=== PATIENT | male | born 1935 | race Caucasian/White ===

== ENCOUNTER 2019-03-19 23:03 | Inpatient (IN) ==
--- NOTE | 2019-03-19 23:22 | DR.CP ---
HPI Time Seen Time Seen by Provider: 03/19/19 23:21 PCP Primary Care Physician: Carlos/Jair Complaint Chief Complaint:: An 83 y/o male with c/o hurting in his chest. The pain started last night. He has also pain in the Left chest, separately from the central chest. It hurts to take in deep breaths or move around. There is no nausea or vomiting. Reviewed Nurses Notes Review: Yes Source History Provided: Patient and Family Member Timing Onset of Chief Complaint: 03/18/19 Came on: Gradually Pain: Present Now Location Location of Chest Pain: Left and Chest Chest Pain Radiation Location: Left Arm Context Onset: At rest Cardiac Risk Factors: Hyperlipidemia and Diabetes PE Risk Factors: None Prehospital Care: None Quality Quality: Sharp and Pleuritic Severity Severity: Severe Modifying Factors Worsens: Breathing and Movement Impoves: Rest Associated Signs and Symptoms Associated Signs and Symptoms: Shortness of Breath PMH PMH Past Surgical History: Yes Family History Family Medical History: Diabetes Mellitus, Cancer, [place], Coronary Artery Disease, Sudden Cardiac and Hypertension Social History Do you use any recreational Drugs:: No ROS Review of Systems Constitutional: No Symptoms Reported Eyes: No Symptoms Reported ENTM: No Symptoms Reported Respiratoy: Short of Breath Cardiovascular: Chest Pain Gastrointestinal/Abdominal: No Symptoms Reported Genitourinary: No Symptoms Reported Neurological: No Symptoms Reported Musculoskeletal: No Symptoms Reported Integumentary: No Symptoms Reported Hematologic/Lymphatic: No Symptoms Reported Endocrine: No Symptoms Reported Psychiatric: No Symptoms Reported PE Vitals Vitals: Temperature 98.2 F Pulse Rate [Left Brachial] 67 Pulse Rate 69 Respiratory Rate 16 Blood Pressure [Left Arm] 146/69 Blood Pressure [Right Arm] 134/64 Blood Pressure 151/66 O2 Sat by Pulse Oximetry 93 General Limitations: No Limitations General Appearance: Alert and In No Apparent Distress Head Head Exam: Normal Inspection, Atraumatic and Normocephalic Eyes Eye exam: Normal Appearance and EOMI ENT ENT Exam: Normal Oropharynx and Mucous Membranes Moist Chest Chest Inspection: Normal Inspection and Symmetric Chest Wall Rise Respiratory Respiratory Exam: Chest Wall Tenderness (Lt. lower ribs laterally) Respiratory Exam: Left: Rhonchi, Left: Crackles and Left: Decreased Breath Sounds and Lower: Rhonchi, Lower: Crackles and Lower: Decreased Breath Sounds Cardiovascular Cardiovascular Exam: Regular Rate, Normal Rhythm, +S1 and +S2 Abdominal Exam Abdominal Exam: Normal Inspection, Normal Bowel Sounds and Soft Extremities Extremities Exam: Normal Inspection Back Back Exam: Normal Inspection Neurologic Neurological Exam: Alert and Oriented X3 Psychiatric Psychiatric Exam: Normal Affect and Normal Mood Skin Skin Exam: Warm, Dry and Normal Color COURSE Education/Counseling Education/Counseling: Patient, Family, Education and Counseling Educated On: Treatment, Diagnosis, Prognosis and Needs for Follow Up ROR Labs Reviewed Laboratory Results Reviewed?: Yes Result Diagrams: 03/19/19 23:20 03/19/19 23:20 Laboratory: WBC 7.8 X10^3/uL (3.6-10.0) 03/19/19 23:20 RBC 4.94 X10^6/uL (4.7-6.0) 03/19/19 23:20 Hgb 14.8 g/dL (13.5-18.0) 03/19/19 23:20 Hct 42.6 % (42.0-54.0) 03/19/19 23:20 MCV 86.3 fL (80.0-100.0) 03/19/19 23:20 MCH 30.0 pg (27.0-34.0) 03/19/19 23:20 MCHC 34.8 g/dL (33.0-35.0) 03/19/19 23:20 RDW 13.1 % (11.6-16.5) 03/19/19 23:20 Plt Count 156 X10^3/uL (150.0-450.0) 03/19/19 23:20 MPV 8.7 fL (7.4-11.0) 03/19/19 23:20 Neut % (Auto) 47.2 % (42.0-75.0) 03/19/19 23:20 Lymph % (Auto) 38.4 % (21.0-51.0) 03/19/19 23:20 [place] % (Auto) 11.9 % (0.0-13.0) 03/19/19 23:20 Eos % (Auto) 1.9 % (0.9-2.9) 03/19/19 23:20 Baso % (Auto) 0.6 % (0.2-1.0) 03/19/19 23:20 Neut # (Auto) 3.7 x10^3/uL (2.2-4.8) 03/19/19 23:20 Lymph # (Auto) 3.0 X10^3/uL (1.3-2.9) H 03/19/19 23:20 Mason # (Auto) 0.9 x10^3/uL (0.3-0.8) H 03/19/19 23:20 Eos # (Auto) 0.2 x10^3/uL (0.0-0.2) 03/19/19 23:20 Baso # (Auto) 0.1 X10^3/uL (0.0-0.1) 03/19/19 23:20 Absolute Nucleated RBC 0.1 /100WBC 03/19/19 23:20 INR Target Range - 03/19/19 23:20 INR 1.00 (0.8-1.3) 03/19/19 23:20 APTT 32.6 SECONDS (22.9-36.5) 03/19/19 23:20 PTT Comment - 03/19/19 23:20 Sodium 138 mmol/L (136-145) 03/19/19 23:20 Corrected Sodium 139 mmol/L (136-145) 03/19/19 23:20 Potassium 4.1 mmol/L (3.5-5.1) 03/19/19 23:20 Chloride 103 mmol/L (98-107) 03/19/19 23:20 Carbon Dioxide 24.4 mmol/L (21-32) 03/19/19 23:20 BUN 13 mg/dL (7-18) 03/19/19 23:20 Creatinine 1.55 mg/dL (0.70-1.30) H 03/19/19 23:20 Est GFR (MDRD) Af Amer 56 (>60) L 03/19/19 23:20 Est GFR (MDRD) Non-Af 46 (>60) L 03/19/19 23:20 Glucose 125 mg/dL (65-99) H 03/19/19 23:20 Calcium 9.5 mg/dL (8.5-10.1) 03/19/19 23:20 Corrected Calcium TNP 03/19/19 23:20 Magnesium 1.9 mg/dL (1.7-2.9) 03/19/19 23:20 Total Bilirubin 0.30 mg/dL (0.2-1.0) 03/19/19 23:20 AST 13 Units/L (15-37) L 03/19/19 23:20 ALT 30 Units/L (12-78) 03/19/19 23:20 Alkaline Phosphatase 92 Units/L (46-116) 03/19/19 23:20 Creatine Kinase 105 Units/L (39-308) 03/19/19 23:20 CK-MB (CK-2) 2.6 ng/mL (0-4.0) 03/19/19 23:20 CK/CKMB % Calc 2.5 % (<4) 03/19/19 23:20 Troponin I 0.00 ng/mL (0-1.5) 03/19/19 23:20 Total Protein 7.3 g/dL (6.4-8.2) 03/19/19 23:20 Albumin 3.7 g/dL (3.4-5.0) 03/19/19 23:20 Globulin 3.6 g/dL (2.5-4.5) 03/19/19 23:20 Albumin/Globulin Ratio 1.0 Ratio (1.1-2.1) L 03/19/19 23:20 XRAY XRAY Interpreted by: Self XRAY Findings: CXR/Lt. ribs: No infifltrates or rib fx. noted. EKG Rate: 71 [place]: Normal Rhythm: NSR Block: None Hypertrophy: None ST: Normal Diagnosis Discharge Problem: Chest pain Qualifiers: Chest pain type: precordial pain Qualified Code(s): R07.2 - Precordial pain
[2019-03-19 23:33] LABS: BASOPHILS # (AUTO) 0.1 X10^3/uL (0.0-0.1); BASOPHILS % (AUTO) 0.6 % (0.2-1.0); EOSINOPHILS # (AUTO) 0.2 x10^3/uL (0.0-0.2); EOSINOPHILS % (AUTO) 1.9 % (0.9-2.9); HEMATOCRIT 42.6 % (42.0-54.0); HEMOGLOBIN 14.8 g/dL (13.5-18.0); LYMPHOCYTES % (AUTO) 38.4 % (21.0-51.0); MEAN CORPUSCULAR HGB CONC 34.8 g/dL (33.0-35.0); MEAN CORPUSCULAR VOLUME 86.3 fL (80.0-100.0); MEAN PLATELET VOLUME 8.7 fL (7.4-11.0); MONOCYTES # (AUTO) 0.9 x10^3/uL (0.3-0.8); MONOCYTES % (AUTO) 11.9 % (0.0-13.0); NEUTROPHILS # (AUTO) 3.7 x10^3/uL (2.2-4.8); NEUTROPHILS % (AUTO) 47.2 % (42.0-75.0); PLATELET COUNT 156 X10^3/uL (150.0-450.0); RED BLOOD COUNT 4.94 X10^6/uL (4.7-6.0); RED CELL DISTRIBUTION WIDTH 13.1 % (11.6-16.5); WHITE BLOOD COUNT 7.8 X10^3/uL (3.6-10.0)
[2019-03-19 23:44] LABS: ALANINE AMINOTRANSFERASE 30 Units/L (12-78); ALBUMIN 3.7 g/dL (3.4-5.0); ALKALINE PHOSPHATASE 92 Units/L (46-116); ASPARTATE AMINO TRANSFERASE 13 Units/L (15-37); BLOOD UREA NITROGEN 13 mg/dL (7-18); CALCIUM 9.5 mg/dL (8.5-10.1); CARBON DIOXIDE 24.4 mmol/L (21-32); CHLORIDE 103 mmol/L (98-107); COR NA(FOR HYPERGLY) 139 mmol/L (136-145); CREATININE 1.55 mg/dL (0.70-1.30); MAGNESIUM 1.9 mg/dL (1.7-2.9); SODIUM 138 mmol/L (136-145); TOTAL PROTEIN 7.3 g/dL (6.4-8.2); eGFR NON BLACK RACES 46 (>60)
[2019-03-19 23:51] LABS: CKMB % 2.5 % (<4); CREATINE KINASE 105 Units/L (39-308); CREATINE KINASE MB 2.6 ng/mL (0-4.0)
[2019-03-20] MEDS ORDERED: NORCO 5/325 MG TAB ONE ×2 (02:09→05:52)
[2019-03-20] MEDS ORDERED: NORCO 5/325 MG TAB PO ONE ×2 (02:11→16:30)
[2019-03-20] MEDS ORDERED: REFLEX: PROVENTIL NEB & PulmiCORT NEB~ NEB SCH (02:15)
[2019-03-20 02:45] LABS: CKMB % 2.3 % (<4); CREATINE KINASE MB 2.4 ng/mL (0-4.0)
--- NOTE | 2019-03-20 04:46 | RAD ---
Left rib series-five views with frontal chest Indication: Pain. Findings: There is no pneumothorax or effusion. There is patchy left lower lung opacity concerning for pneumonia. Right upper lobe lung nodule possible. No displaced rib fracture seen. Chronic lung changes are noted. Heart size is prominent. Impression: 1. Left lower lung pneumonia suspected. 2. No displaced rib fracture seen. 3. Questionable right upper lobe lung nodule. PA and lateral chest follow-up recommended. Underlying neoplasm should be excluded. Reported By:
[2019-03-20 05:12] VITALS: BMI 25.1
[2019-03-20] MEDS ORDERED: SALINE 3% 15 ML NEB TX NEB ONE (05:45)
[2019-03-20] MEDS: PROVENTIL NEB TX 0.083% 2.5MG/ 3ML NEB SCH ×3 (05:45→17:03)
[2019-03-20] MEDS: NORCO 5/325 MG TAB PO PRN ×2 (05:49→14:12)
[2019-03-20 06:34] LABS: ALANINE AMINOTRANSFERASE 34 Units/L (12-78); ALBUMIN 3.3 g/dL (3.4-5.0); ALKALINE PHOSPHATASE 79 Units/L (46-116); ASPARTATE AMINO TRANSFERASE 23 Units/L (15-37); BLOOD UREA NITROGEN 12 mg/dL (7-18); CALCIUM 9.1 mg/dL (8.5-10.1); CARBON DIOXIDE 24.6 mmol/L (21-32); CHLORIDE 104 mmol/L (98-107); COR CA(FOR HYPOALB) 9.7 mg/dL (8.5-10.1); CREATININE 1.38 mg/dL (0.70-1.30); SODIUM 137 mmol/L (136-145); TOTAL PROTEIN 6.7 g/dL (6.4-8.2); eGFR NON BLACK RACES 53 (>60)
[2019-03-20 07:53] LABS: BASOPHILS % (AUTO) 0.3 % (0.2-1.0); EOSINOPHILS # (AUTO) 0.1 x10^3/uL (0.0-0.2); EOSINOPHILS % (AUTO) 0.5 % (0.9-2.9); HEMATOCRIT 42.4 % (42.0-54.0); HEMOGLOBIN 14.5 g/dL (13.5-18.0); LYMPHOCYTES # (AUTO) 2.5 X10^3/uL (1.3-2.9); LYMPHOCYTES % (AUTO) 21.6 % (21.0-51.0); MEAN CORPUSCULAR HEMOGLOBIN 29.6 pg (27.0-34.0); MEAN CORPUSCULAR HGB CONC 34.2 g/dL (33.0-35.0); MEAN CORPUSCULAR VOLUME 86.6 fL (80.0-100.0); MEAN PLATELET VOLUME 8.5 fL (7.4-11.0); MONOCYTES # (AUTO) 1.1 x10^3/uL (0.3-0.8); MONOCYTES % (AUTO) 9.9 % (0.0-13.0); NEUTROPHILS # (AUTO) 7.7 x10^3/uL (2.2-4.8); NEUTROPHILS % (AUTO) 67.7 % (42.0-75.0); PLATELET COUNT 158 X10^3/uL (150.0-450.0); RED BLOOD COUNT 4.89 X10^6/uL (4.7-6.0); RED CELL DISTRIBUTION WIDTH 13.1 % (11.6-16.5); WHITE BLOOD COUNT 11.4 X10^3/uL (3.6-10.0)
[2019-03-20] MEDS ORDERED: NS 1000 ML 1,000 ML IV ONE (08:14)
[2019-03-20 08:52] LABS: CREATINE KINASE 93 Units/L (39-308)
[2019-03-20] MEDS ORDERED: LEXAPRO ONE (08:55)
[2019-03-20] MEDS: PULMICORT NEB TX 0.5 MG NEB SCH ×2 (08:57→21:00)
[2019-03-20] MEDS ORDERED: PATIENT'S HOME MEDICATION (Escitalopram Oxalate [Escitalopram Oxalate] 5 MG) PO SCH (09:00)
[2019-03-20 09:08] LABS: CKMB % 2.3 % (<4); CREATINE KINASE MB 2.1 ng/mL (0-4.0); TROPONIN I < 0.02 ng/mL (0-1.5)
--- NOTE | 2019-03-20 09:08 | CT ---
HISTORY: Further evaluation of lung mass Study: CT chest without contrast Comparison: Radiograph 03/20/2019, 12/28/2016 Technique: Multiple axial images of the chest were obtained from the thoracic inlet to the upper abdomen without IV contrast. Dose reduction techniques including Automated Exposure Control (AEC) and adjustment of mA and kV were utilized. Findings: Please note evaluation is limited without IV contrast. Heart size is normal with calcified plaque throughout the coronary arteries. Aorta is normal in caliber. Multiple calcified lymph nodes are present mediastinum suggesting sequela of chronic granulomatous disease. There is left lower lobe consolidation that may represent pneumonia. In the right upper lobe there is a partially calcified 4.5 cm density with streaky borders that may represent fibrotic changes or scarring. Neoplasm is felt less likely but PET scan could be performed to evaluate for metabolic uptake once the pneumonia has cleared. No aggressive osseous lesion or fracture. The visualized portions of the upper abdomen are grossly unremarkable. IMPRESSION: 1. Left lower lobe consolidation suggesting pneumonia. 2. Partially calcified 4.5 cm density in the right upper lobe with streaky borders suggesting fibrotic changes or scarring. Neoplasm is felt less likely but PET scan could be performed to evaluate for metabolic uptake after the pneumonia has cleared. 3. Coronary atherosclerotic disease and chronic granulomatous changes. Reported By:
[2019-03-20] MEDS ORDERED: TIOTROPIUM BROMIDE MONOHYDRATE INH SCH (09:15)
[2019-03-20] MEDS: SYNTHROID 88 mcg TAB PO SCH (09:39)
[2019-03-20] MEDS: LEXAPRO PO SCH (09:40)
[2019-03-20] MEDS: ARICEPT TAB 10 MG PO SCH (09:42)
[2019-03-20] MEDS ORDERED: MORPHINE SULFATE INJ 2 MG INJ IVP PRN (10:36)
[2019-03-20] MEDS ORDERED: MORPHINE SULFATE INJ 2 MG INJ ONE (10:41)
[2019-03-20] MEDS: NS 1000 ML 1,000 ML IV SCH (10:43)
[2019-03-20] MEDS: FORTAZ or TAZICEF VIAL INJ IVP SCH ×3 (10:44→21:31)
[2019-03-20] MEDS: LEVAQUIN PREMIX IV 500 MG 500 MG/100 ML BAG IV SCH (10:44)
[2019-03-20] MEDS: MUCOMYST 20% 200 MG/ML PO SCH ×2 (10:46→20:43)
[2019-03-20 11:54] LABS: BILIRUBIN,URINE NEGATIVE (NEGATIVE); BLOOD/HEMOGLOBIN,URINE NEGATIVE (NEGATIVE); GLUCOSE, URINE NEGATIVE (NEGATIVE); KETONES,URINE NEGATIVE (NEGATIVE); LEUKOCYTE ESTERASE ,URINE NEGATIVE (NEGATIVE); NITRITES,URINE NEGATIVE (NEGATIVE); PROTEIN,URINE NEGATIVE (NEGATIVE); UROBILINOGEN,URINE NORMAL (NORMAL)
[2019-03-20 12:14] LABS: APPEARANCE,URINE CLEAR (CLEAR); COLOR,URINE YELLOW (YELLOW)
[2019-03-20] MEDS ORDERED: MORPHINE SULFATE INJ 2 MG INJ IVP ONE (12:15)
[2019-03-20] MEDS: ASPIRIN 81 MG CHEWTAB PO SCH (12:24)
[2019-03-20 13:20] LABS: CKMB % 2.2 % (<4); CREATINE KINASE 88 Units/L (39-308); CREATINE KINASE MB 1.9 ng/mL (0-4.0); TROPONIN I < 0.02 ng/mL (0-1.5)
[2019-03-20 14:46] LABS: CREATINE KINASE 82 Units/L (39-308)
[2019-03-20 15:00] LABS: CKMB % 2.2 % (<4); CREATINE KINASE MB 1.8 ng/mL (0-4.0)
[2019-03-20 15:01] LABS: TROPONIN I < 0.02 ng/mL (0-1.5)
[2019-03-20] MEDS ORDERED: NORCO 10/325 TAB PO PRN (16:02)
[2019-03-20] MEDS ORDERED: TORADOL 30 MG VIAL ONE (16:08)
[2019-03-20] MEDS: TORADOL 30 MG VIAL IVP PRN ×2 (16:17→21:20)
[2019-03-20] MEDS: MEMANTINE PO SCH (19:15)
[2019-03-20] MEDS: ZOCOR TAB 20 MG PO SCH (20:43)
[2019-03-20] MEDS: NIACIN 500 MG PO SCH (20:50)
--- NOTE | 2019-03-20 23:43 | DR.H&P ---
H&P - History & Physical for Day of: H&P Date: 03/20/19 - Chief Complaint Chief Complaint: SOB, CHEST PAIN - History of Present Illness History of Present Illness: IS A 83 YEAR OLD PATIENT OF OURS WHO PRESENTED TO THE ER WITH COMPLAINTS OF LEFT SIDED CHEST PAIN X 1 DAY. HE REPORTS THAT PAIN IS WORSE UPON TAKING A DEEP BREATH. ON ARRIVAL, VITALS WERE 98.3-72-25-93%RA-158/72. LABS WERE OBTAINED. ABNORMAL LAB VALUES INCLUDE THE FOLLOWING: CREATININE 1.55, GLUCOSE 125, AST 13. CARDIAC ENZYMES WITHIN NORMAL LIMITS. URINALYSIS IS UNREMARKABLE. URINE, SUPUTUM, AND BLOOD CULTURES OBTAINED. AN EKG WAS OBTAINED AND REVEALED: SINUS RHYTHM WITH HR 71. RIB SERIES WITH CHEST XRAY REVEALED: Left lower lung pneumonia suspected. No displaced rib fracture seen. Questionable right upper lobe lung nodule. PA and lateral chest follow-up recommended. Underlying neoplasm should be excluded. WE OBTAINED A CHEST CT WITHOUT CONTRAST. IT REVEALED: Left lower lobe consolidation suggesting pneumonia. Partially calcified 4.5 cm density in the right upper lobe with streaky borders suggesting fibrotic changes or scarring. Neoplasm is felt less likely but PET scan could be performed to evaluate for metabolic uptake after the pneumonia has cleared. Coronary atherosclerotic disease and chronic granulomatous changes. HE WAS ADMITTED FOR FURTHER EVALUATION AND TREATMENT OF CHESET PAIN AND PNEUMONIA. HE WAS STARTED ON IV FORTAZ, IV LEVAQUIN, RESPIRATORY TREATMENTS, AND SUPPLEMENTAL OXYGEN. HOME MEDICATIONS WERE RESUMED. OTHERWISE, WE PLAN TO FOLLOW UP WITH AM LABS AND CHEST XRAY AND CONTINUE TO MONITOR. - Past Medical History Past Medical History: COPD - Past Surgical History Surgical History: Ortho Surgery, Other - Family History Family Medical History: Diabetes Mellitus, Cancer, [place], Sudden Cardiac , Hypertension - Social History Does patient currently use any type of tobacco product: No Have you used tobacco products in the last 12 months: No Type of Tobacco Use: None Alcohol Use: None Drug Use: None - Medications Home Medications: No Known Drug Allergies Allergy (Verified 03/19/19 23:21) CONTINUE taking the following medications donepezil 10 mg PO DAILY 03/19/19 [History] escitalopram oxalate 5 mg PO DAILY 03/19/19 [History] levothyroxine 88 mcg PO QAM 03/19/19 [History] - Review of Systems Constitutional: No Symptoms Reported Eyes: No Symptoms Reported ENT: No Symptoms Reported Respiratory: Shortness of Breath, SOB with Excertion Cardiovascular: Chest Pain Gastrointestinal: No Symptoms Reported Genitourinary: No Symptoms Reported Musculoskeletal: No Symptoms Reported Skin: No Symptoms Reported Neurological: No Symptoms Reported - Physical Exam Vital Signs: Temperature 97.7 F Pulse Rate [Right Brachial] 75 Pulse Rate [Left Brachial] 69 Pulse Rate 77 Respiratory Rate 20 Blood Pressure [Left Arm] 146/69 Blood Pressure [Right Arm] 110/55 Blood Pressure 157/71 O2 Sat by Pulse Oximetry 97 Oriented: Normal Eyes: Normal Ear: Normal Nose: Normal Throat: Normal Respiratory: Diminished Throughout Cardiovascular: Normal : Normal Auscultation: Bowel Sounds: Normal Palpation: Normal Tenderness: Normal Skin: Normal Musculoskeletal: Normal Psychiatric: Normal Mood Description: Calm Affect: Normal Speech Pattern: Clear - Assessment/Plan (1) Pneumonia Qualifiers: Pneumonia type: due to unspecified organism Laterality: left Lung location: lower lobe of lung Qualified Code(s): J18.1 - Lobar pneumonia, unspecified organism Status: Acute Plan: IV FORTAZ, IV LEVAQUIN, RESPIRATORY TX, SUPPLEMENTAL OXYGEN, CONTINUE TO MONITOR (2) Chest pain, rule out acute myocardial infarction Status: Acute - Allergies Allergies/Adverse Reactions: Allergies Allergy/AdvReac Type Severity Reaction Status Date / Time No Known Drug Allergies Allergy Verified 03/19/19 23:21
[2019-03-21] MEDS: PROVENTIL NEB TX 0.083% 2.5MG/ 3ML NEB SCH ×5 (01:03→21:17)
[2019-03-21] MEDS: PULMICORT NEB TX 0.5 MG NEB SCH ×3 (01:03→21:17)
[2019-03-21] MEDS: FORTAZ or TAZICEF VIAL INJ IVP SCH ×3 (05:37→21:05)
[2019-03-21] MEDS: NS 1000 ML 1,000 ML IV SCH (05:37)
[2019-03-21 06:18] LABS: BASOPHILS % (AUTO) 0.4 % (0.2-1.0); EOSINOPHILS # (AUTO) 0.1 x10^3/uL (0.0-0.2); EOSINOPHILS % (AUTO) 1.1 % (0.9-2.9); HEMATOCRIT 36.2 % (42.0-54.0); HEMOGLOBIN 12.6 g/dL (13.5-18.0); LYMPHOCYTES % (AUTO) 23.2 % (21.0-51.0); MEAN CORPUSCULAR HEMOGLOBIN 30.1 pg (27.0-34.0); MEAN CORPUSCULAR HGB CONC 34.8 g/dL (33.0-35.0); MEAN CORPUSCULAR VOLUME 86.3 fL (80.0-100.0); MEAN PLATELET VOLUME 8.3 fL (7.4-11.0); MONOCYTES # (AUTO) 1.2 x10^3/uL (0.3-0.8); NEUTROPHILS # (AUTO) 5.2 x10^3/uL (2.2-4.8); NEUTROPHILS % (AUTO) 61.3 % (42.0-75.0); PLATELET COUNT 129 X10^3/uL (150.0-450.0); RED CELL DISTRIBUTION WIDTH 13.3 % (11.6-16.5); WHITE BLOOD COUNT 8.5 X10^3/uL (3.6-10.0)
[2019-03-21 06:57] LABS: ALANINE AMINOTRANSFERASE 25 Units/L (12-78); ALBUMIN 2.7 g/dL (3.4-5.0); ALKALINE PHOSPHATASE 74 Units/L (46-116); ASPARTATE AMINO TRANSFERASE 16 Units/L (15-37); BLOOD UREA NITROGEN 13 mg/dL (7-18); CALCIUM 8.4 mg/dL (8.5-10.1); CARBON DIOXIDE 24.2 mmol/L (21-32); CHLORIDE 106 mmol/L (98-107); COR CA(FOR HYPOALB) 9.4 mg/dL (8.5-10.1); CREATININE 1.54 mg/dL (0.70-1.30); SODIUM 139 mmol/L (136-145); eGFR NON BLACK RACES 46 (>60)
--- NOTE | 2019-03-21 07:24 | RAD ---
HISTORY: Shortness of breath Study: Chest AP portable Comparison: 03/20/2019 plain film and chest CT Findings: The heart is within normal limits in size. The jonathan are normal. The lungs are free of acute alveolar infiltrates. Abnormal parenchymal density remains in the right upper lobe as previously described on recent chest CT. Continued follow-up is recommended. PET-CT could be obtained if clinically indicated. The remainder the right lung and left upper lung landers are clear. Retrocardiac left lower lobe infiltrate is identified. Small left pleural effusion is present. IMPRESSION: Left lower lobe infiltrate and small left pleural effusion Irregular density in the right upper lobe as previously described on chest CT, unchanged Reported By:
[2019-03-21] MEDS ORDERED: LEXAPRO ONE (07:56)
[2019-03-21] MEDS: ASPIRIN 81 MG CHEWTAB PO SCH (08:22)
[2019-03-21] MEDS: LEXAPRO PO SCH (08:22)
[2019-03-21] MEDS: SYNTHROID 88 mcg TAB PO SCH (08:22)
[2019-03-21] MEDS: LEVAQUIN PREMIX IV 500 MG 500 MG/100 ML BAG IV SCH (08:22)
[2019-03-21] MEDS: ARICEPT TAB 10 MG PO SCH (08:23)
[2019-03-21] MEDS ORDERED: FLOMAX PO SCH (09:00)
[2019-03-21] MEDS ORDERED: PHARMACY CONSULT - DOSE _____ XX SCH (10:00)
[2019-03-21] MEDS: MEMANTINE PO SCH (13:45)
[2019-03-21] MEDS: TORADOL 30 MG VIAL IVP PRN (15:12)
[2019-03-21] MEDS: ZOCOR TAB 20 MG PO SCH (20:26)
[2019-03-21] MEDS: NIACIN 500 MG PO SCH (20:26)
[2019-03-22] MEDS: TORADOL 30 MG VIAL IVP PRN (03:59)
[2019-03-22] MEDS: NS 1000 ML 1,000 ML IV SCH (05:28)
[2019-03-22] MEDS: FORTAZ or TAZICEF VIAL INJ IVP SCH ×2 (05:32→20:10)
[2019-03-22 05:45] LABS: BASOPHILS % (AUTO) 0.3 % (0.2-1.0); EOSINOPHILS # (AUTO) 0.1 x10^3/uL (0.0-0.2); HEMATOCRIT 35.9 % (42.0-54.0); HEMOGLOBIN 12.5 g/dL (13.5-18.0); LYMPHOCYTES # (AUTO) 1.7 X10^3/uL (1.3-2.9); LYMPHOCYTES % (AUTO) 18.9 % (21.0-51.0); MEAN CORPUSCULAR HEMOGLOBIN 30.2 pg (27.0-34.0); MEAN CORPUSCULAR HGB CONC 34.8 g/dL (33.0-35.0); MEAN CORPUSCULAR VOLUME 86.8 fL (80.0-100.0); MEAN PLATELET VOLUME 8.7 fL (7.4-11.0); MONOCYTES # (AUTO) 1.3 x10^3/uL (0.3-0.8); MONOCYTES % (AUTO) 15.1 % (0.0-13.0); NEUTROPHILS # (AUTO) 5.7 x10^3/uL (2.2-4.8); NEUTROPHILS % (AUTO) 64.7 % (42.0-75.0); PLATELET COUNT 135 X10^3/uL (150.0-450.0); RED BLOOD COUNT 4.14 X10^6/uL (4.7-6.0); RED CELL DISTRIBUTION WIDTH 13.3 % (11.6-16.5); WHITE BLOOD COUNT 8.9 X10^3/uL (3.6-10.0)
[2019-03-22 06:17] LABS: ALANINE AMINOTRANSFERASE 22 Units/L (12-78); ALBUMIN 2.5 g/dL (3.4-5.0); ALKALINE PHOSPHATASE 74 Units/L (46-116); ASPARTATE AMINO TRANSFERASE 17 Units/L (15-37); BLOOD UREA NITROGEN 15 mg/dL (7-18); CALCIUM 8.4 mg/dL (8.5-10.1); CARBON DIOXIDE 22.7 mmol/L (21-32); CHLORIDE 107 mmol/L (98-107); COR CA(FOR HYPOALB) 9.6 mg/dL (8.5-10.1); CREATININE 1.59 mg/dL (0.70-1.30); SODIUM 137 mmol/L (136-145); TOTAL PROTEIN 5.9 g/dL (6.4-8.2); eGFR NON BLACK RACES 45 (>60)
--- NOTE | 2019-03-22 06:50 | RAD ---
HISTORY: Shortness of breath Study: Chest AP portable Comparison: 03/21/2019 Findings: The heart is within normal limits in size. The jonathan are normal. The lungs are well inflated. No significant change is noted in the irregular density being followed in the right upper lobe. Left lower lobe infiltrate is unchanged. The remainder of the lung landers are clear. The bony thorax is unremarkable. IMPRESSION: No significant change from the prior examination Reported By:
[2019-03-22] MEDS ORDERED: LEXAPRO ONE (07:53)
[2019-03-22] MEDS: PROVENTIL NEB TX 0.083% 2.5MG/ 3ML NEB SCH ×4 (08:08→20:15)
[2019-03-22] MEDS: PULMICORT NEB TX 0.5 MG NEB SCH ×2 (08:08→20:15)
[2019-03-22] MEDS: LEXAPRO PO SCH (08:38)
[2019-03-22] MEDS: SYNTHROID 88 mcg TAB PO SCH (08:38)
[2019-03-22] MEDS: LEVAQUIN PREMIX IV 500 MG 500 MG/100 ML BAG IV SCH (08:38)
[2019-03-22] MEDS: ASPIRIN 81 MG CHEWTAB PO SCH (08:39)
[2019-03-22] MEDS: ARICEPT TAB 10 MG PO SCH (08:39)
[2019-03-22] MEDS: MEMANTINE PO SCH (10:54)
[2019-03-22] MEDS ORDERED: TORADOL 30 MG VIAL IVP PRN (11:00)
[2019-03-22] MEDS: LOVENOX INJ 40 MG SYR SC SCH (11:18)
[2019-03-22] MEDS: ZOCOR TAB 20 MG PO SCH (20:10)
[2019-03-22] MEDS ORDERED: FLOMAX PO SCH (21:00)
[2019-03-23] MEDS: NS 1000 ML 1,000 ML IV SCH ×2 (01:36→09:55)
[2019-03-23 05:52] LABS: BASOPHILS % (AUTO) 0.3 % (0.2-1.0); EOSINOPHILS # (AUTO) 0.1 x10^3/uL (0.0-0.2); HEMATOCRIT 38.2 % (42.0-54.0); HEMOGLOBIN 13.2 g/dL (13.5-18.0); LYMPHOCYTES # (AUTO) 2.1 X10^3/uL (1.3-2.9); LYMPHOCYTES % (AUTO) 24.3 % (21.0-51.0); MEAN CORPUSCULAR HGB CONC 34.6 g/dL (33.0-35.0); MEAN CORPUSCULAR VOLUME 86.8 fL (80.0-100.0); MEAN PLATELET VOLUME 8.9 fL (7.4-11.0); MONOCYTES # (AUTO) 1.5 x10^3/uL (0.3-0.8); MONOCYTES % (AUTO) 16.6 % (0.0-13.0); NEUTROPHILS % (AUTO) 57.8 % (42.0-75.0); PLATELET COUNT 152 X10^3/uL (150.0-450.0); RED BLOOD COUNT 4.41 X10^6/uL (4.7-6.0); RED CELL DISTRIBUTION WIDTH 13.1 % (11.6-16.5); WHITE BLOOD COUNT 8.7 X10^3/uL (3.6-10.0)
--- NOTE | 2019-03-23 06:15 | RAD ---
HISTORY: Shortness of breath Study: Chest AP portable Comparison: 03/22/2019 Findings: The heart remains within normal limits in size. The jonathan are normal. Irregular abnormal parenchymal density again identified in the right lung apex stable when compared with the prior examination. Left lower lobe infiltrate is unchanged. There has been interval development of a left pleural effusion. The right middle, right lower, and left upper lobes are clear. IMPRESSION: No change left lower lobe infiltrate but there has been interval development of a left pleural effusion Irregular density again identified in the right upper lobe as described on the recent chest CT., stable Reported By:
[2019-03-23 06:19] LABS: ALANINE AMINOTRANSFERASE 25 Units/L (12-78); ALBUMIN 2.7 g/dL (3.4-5.0); ALKALINE PHOSPHATASE 75 Units/L (46-116); ASPARTATE AMINO TRANSFERASE 20 Units/L (15-37); BLOOD UREA NITROGEN 12 mg/dL (7-18); CALCIUM 9.2 mg/dL (8.5-10.1); CARBON DIOXIDE 23.8 mmol/L (21-32); CHLORIDE 106 mmol/L (98-107); COR CA(FOR HYPOALB) 10.2 mg/dL (8.5-10.1); CREATININE 1.38 mg/dL (0.70-1.30); SODIUM 137 mmol/L (136-145); TOTAL PROTEIN 6.4 g/dL (6.4-8.2); eGFR NON BLACK RACES 53 (>60)
--- NOTE | 2019-03-23 08:20 | PCM.PROG ---
Progress Note - Progress Note for Day of Date of Exam: 03/21/19 - Subjective Subjective: WAS ADMITTED FOR LEFT LOWER LUNG PNEUMONIA AND CHEST PAIN, RULE OUT ACUTE SD. TODAY, HE IS ALERT AND ORIENTED, LYING IN BED ON MORNING ROUNDS. HE CONTINUES WITH COMPLAINTS OF SHORTNESS OF BREATH AND PAIN TO THE LEFT SIDE. HE ALSO REPORTS COUGHING TODAY. ON EXAMINATION, HEART IS REGULAR IN RATE AND RHYTHM. BILATERAL LUNGS ARE NOTED WITH DIMINISHED LUNG SOUNDS THROUGHOUT. ABDOMEN IS ROUND, SOFT, AND NON-TENDER WITH NORMAL BOWEL SOUNDS NOTED IN ALL QUADRANTS. HIS VITALS THIS MORNING ARE 97.9-78-18-97%-148/66. LABS WERE OBTAINED. ABNORMAL LAB VALUES INCLUDE THE FOLLOWING: RBC 4.20, HGB 12.6, HCT 36.2, PLT OCUNT 129, CREATININE 1.54, CALCIUM 8.4, TOTAL PROTEIN 6.0, ALBUMIN 2.7. BLOOD, SPUTUM, AND URINE CULTURE PENDING. A CHEST XRAY WAS OBTAINED TODAY AND REVEALED: Left lower lobe infiltrate and small left pleural effusion. Irregular density in the right upper lobe as previously described on chest CT, unchanged. HE IS CURRENTLY RECEIVING IV LEVAQUIN AND IV FORTAZ WELL R ESPIRATORY TREATMENTS AND SUPPLEMENTAL OXYGEN. HE WAS STARTED ON TORADOL 30MG IV Q6H PRN FOR PAIN RELATED TO PLEURISY. WE WILL CONTINUE WITH CURRENT PLAN OF CARE TODAY. OTHERWISE, WE PLAN TO FOLLOW UP WITH AM LABS AND CONTINUE TO MONITOR. - Past Medical Family Social History Past Med/Fam/Surg Hx: No changes since H&P Allergies: Allergies No Known Drug Allergies Allergy (Verified 03/19/19 23:21) - Review of Systems ROS: No change since H&P - Vital Signs and I&O's Vital Signs: Temperature 99.3 F Pulse Rate [Right Brachial] 73 Pulse Rate [Left Brachial] 75 Pulse Rate 75 Respiratory Rate 18 Blood Pressure [Left Arm] 115/59 Blood Pressure [Right Arm] 134/72 Blood Pressure 157/71 O2 Sat by Pulse Oximetry 96 Intake and Output: Intake & Output 03/20/19 03/21/19 03/22/19 03/23/19 11:59 11:59 11:59 11:59 Intake Total 0 / 0 1030 / 1030 1645 / 1645 2010 Balance 0 / 0 1030 / 1030 1645 / 1645 2010 - Physical Exam Oriented: Normal Eyes: Normal Ear: Normal Nose: Normal Throat: Normal Respiratory: Generalized, Diminished Cardiovascular: Normal : Normal Auscultation: Bowel Sounds: Normal Palpation: Normal Tenderness: Normal Skin: Normal Musculoskeletal: Normal Psychiatric: Normal Mood Description: Calm Affect: Normal Speech Pattern: Clear, Appropriate - Laboratory and Diagnostics Result Diagrams: 03/23/19 05:12 03/23/19 05:12 Labs: 03/20/19 07:36 Blood Blood Culture - Preliminary 03/20/19 07:31 Blood Blood Culture - Preliminary 03/20/19 11:45 Urine,Clean Catch Urine Culture - Final 03/20/19 07:40 Sputum - Expectorated Sputum Sputum Culture - Final 03/20/19 07:40 Sputum - Expectorated Sputum - Final Laboratory WBC 8.7 X10^3/uL (3.6-10.0) 03/23/19 05:12 RBC 4.41 X10^6/uL (4.7-6.0) L 03/23/19 05:12 Hgb 13.2 g/dL (13.5-18.0) L 03/23/19 05:12 Hct 38.2 % (42.0-54.0) L 03/23/19 05:12 MCV 86.8 fL (80.0-100.0) 03/23/19 05:12 MCH 30.0 pg (27.0-34.0) 03/23/19 05:12 MCHC 34.6 g/dL (33.0-35.0) 03/23/19 05:12 RDW 13.1 % (11.6-16.5) 03/23/19 05:12 Plt Count 152 X10^3/uL (150.0-450.0) 03/23/19 05:12 MPV 8.9 fL (7.4-11.0) 03/23/19 05:12 Neut % (Auto) 57.8 % (42.0-75.0) 03/23/19 05:12 Lymph % (Auto) 24.3 % (21.0-51.0) 03/23/19 05:12 [place] % (Auto) 16.6 % (0.0-13.0) H 03/23/19 05:12 Eos % (Auto) 1.0 % (0.9-2.9) 03/23/19 05:12 Baso % (Auto) 0.3 % (0.2-1.0) 03/23/19 05:12 Neut # (Auto) 5.0 x10^3/uL (2.2-4.8) H 03/23/19 05:12 Lymph # (Auto) 2.1 X10^3/uL (1.3-2.9) 03/23/19 05:12 [place] # (Auto) 1.5 x10^3/uL (0.3-0.8) H 03/23/19 05:12 Eos # (Auto) 0.1 x10^3/uL (0.0-0.2) 03/23/19 05:12 Baso # (Auto) 0.0 X10^3/uL (0.0-0.1) 03/23/19 05:12 Absolute Nucleated RBC 0.0 /100WBC 03/23/19 05:12 INR Target Range - 03/19/19 23:20 INR 1.00 (0.8-1.3) 03/19/19 23:20 APTT 32.6 SECONDS (22.9-36.5) 03/19/19 23:20 PTT Comment - 03/19/19 23:20 Sodium 137 mmol/L (136-145) 03/23/19 05:12 Corrected Sodium TNP 03/23/19 05:12 Potassium 4.5 mmol/L (3.5-5.1) 03/23/19 05:12 Chloride 106 mmol/L (98-107) 03/23/19 05:12 Carbon Dioxide 23.8 mmol/L (21-32) 03/23/19 05:12 BUN 12 mg/dL (7-18) 03/23/19 05:12 Creatinine 1.38 mg/dL (0.70-1.30) H 03/23/19 05:12 Est GFR (MDRD) Af Amer > 60 (>60) 03/23/19 05:12 Est GFR (MDRD) Non-Af 53 (>60) L 03/23/19 05:12 Glucose 94 mg/dL (65-99) 03/23/19 05:12 Calcium 9.2 mg/dL (8.5-10.1) 03/23/19 05:12 Corrected Calcium 10.2 mg/dL (8.5-10.1) H 03/23/19 05:12 Magnesium 1.9 mg/dL (1.7-2.9) 03/19/19 23:20 Total Bilirubin 0.70 mg/dL (0.2-1.0) 03/23/19 05:12 AST 20 Units/L (15-37) 03/23/19 05:12 ALT 25 Units/L (12-78) 03/23/19 05:12 Alkaline Phosphatase 75 Units/L (46-116) 03/23/19 05:12 Creatine Kinase 82 Units/L (39-308) 03/20/19 14:17 CK-MB (CK-2) 1.8 ng/mL (0-4.0) 03/20/19 14:17 CK/CKMB % Calc 2.2 % (<4) 03/20/19 14:17 Troponin I < 0.02 ng/mL (0-1.5) 03/20/19 14:17 Total Protein 6.4 g/dL (6.4-8.2) 03/23/19 05:12 Albumin 2.7 g/dL (3.4-5.0) L 03/23/19 05:12 Globulin 3.7 g/dL (2.5-4.5) 03/23/19 05:12 Albumin/Globulin Ratio 0.7 Ratio (1.1-2.1) L 03/23/19 05:12 Specimen Type Clean catch urine 03/20/19 11:45 Urine Color Yellow (YELLOW) 03/20/19 11:45 Urine Appearance Clear (CLEAR) 03/20/19 11:45 Urine pH 5.0 (5.0 - 8.0) 03/20/19 11:45 Ur Specific [place] 1.010 (1.000-1.030) 03/20/19 11:45 Urine Protein Negative (NEGATIVE) 03/20/19 11:45 Urine Glucose (UA) Negative (NEGATIVE) 03/20/19 11:45 Urine Ketones Negative (NEGATIVE) 03/20/19 11:45 Urine Occult Blood Negative (NEGATIVE) 03/20/19 11:45 Urine Nitrite Negative (NEGATIVE) 03/20/19 11:45 Urine Bilirubin Negative (NEGATIVE) 03/20/19 11:45 Urine Urobilinogen Normal (NORMAL) 03/20/19 11:45 Ur Leukocyte Esterase Negative (NEGATIVE) 03/20/19 11:45 - Plan (1) Pneumonia Status: Acute Qualifiers: Pneumonia type: due to unspecified organism Laterality: left Lung location: lower lobe of lung Qualified Code(s): J18.1 - Lobar pneumonia, unspecified organism Plan: IV FORTAZ, IV LEVAQUIN, RESPIRATORY [place], SUPPLEMENTAL OXYGEN, CONTINUE TO MONITOR (2) Chest pain, rule out acute myocardial infarction Status: Acute (3) Pleurisy Status: Acute Plan: TORADOL 30MG IV Q6H PRN, CONTINUE TO MONTIOR
[2019-03-23] MEDS: PULMICORT NEB TX 0.5 MG NEB SCH (09:06)
[2019-03-23] MEDS: PROVENTIL NEB TX 0.083% 2.5MG/ 3ML NEB SCH ×3 (09:06→12:13)
[2019-03-23] MEDS ORDERED: LEXAPRO ONE (09:14)
[2019-03-23] MEDS: LOVENOX INJ 40 MG SYR SC SCH (09:30)
[2019-03-23] MEDS: LEVAQUIN PREMIX IV 500 MG 500 MG/100 ML BAG IV SCH (09:53)
[2019-03-23] MEDS: ASPIRIN 81 MG CHEWTAB PO SCH (09:54)
[2019-03-23] MEDS: LEXAPRO PO SCH (09:54)
[2019-03-23] MEDS: SYNTHROID 88 mcg TAB PO SCH (09:54)
[2019-03-23] MEDS: FORTAZ or TAZICEF VIAL INJ IVP SCH (09:55)
[2019-03-23] MEDS: ARICEPT TAB 10 MG PO SCH (09:55)
[2019-03-23 16:42] VITALS: BP 131/68
== END 2019-03-23 17:35 | disposition home or self-care (01) | DRG 195 ==
LOC: MED/SURG 23:03 → ER 23:03 → MED/SURG 03-20 02:15
PROVIDERS: ADMIT Internal Medicine; ATTEND Internal Medicine
DX: R07.89 Other chest pain; J44.9 Chronic obstructive pulmonary disease, unspecified; R09.1 Pleurisy; J18.8 Other pneumonia, unspecified organism; R07.2 Precordial pain; E03.8 Other specified hypothyroidism
CPT/HCPCS: 36415; 71010; 71045; 71111; 71250; 80053; 81003; 82550; 82553; 83735; 84484; 85025; 85610; 85730; 87040; 87070; 87086; 87205; 93005; 94640; 94760; 96365; 99284; A4222; G0378; J0713; J1650; J1885; J1956; J2270; J7030; J7608; J7613; J7626

== ENCOUNTER 2019-12-17 18:56 | Inpatient (IN) ==
[2019-12-17] MEDS ORDERED: SOLU-Medrol 125 MG VIAL IVP ONE (19:18)
[2019-12-17] MEDS ORDERED: DUONEB 0.5 MG/3 MG (3 mL) NEB ONE ×4 (19:18→23:44)
--- NOTE | 2019-12-17 19:22 | DR.SOBA ---
HPI Time Seen Time Seen by Provider: 12/17/19 19:06 Complaints Chief Complaint Doctors Comments: Patient is complaining of cold, cough, SOB and wheezing for the past 2-3 days getting progressively worst today. States he has been taking nebulizer treatments four times daily and has constant home oxygen but it has not helped. States he usual start like this and it turns into pneumonia is why he came to the emergency room. He denies chest pain but has tightness in his chest at times. He has a cough with whitish sputum production. He denies tobacco or alcohol usage. States he is a patient of Dr. Adam and he has COPD. Reviewed Nurses Notes Reviewed: Yes Source History Provided: Patient and Family Member Mode of Arrival Mode of Arrival: Ambulatory Duration Duration: Days Context Onset:: At Rest and With Light Exertion PE Risk Factors:: None History of:: COPD Currently on:: Inhaled Bronchodilators Prehospital Care:: O2 and Inhaled B2 Modifying Factors Worsens:: Exertion Improves:: Inhaler Associated Signs and Symptoms Associated Signs and Symptoms: Wheeze, Cough, Nasal Congestion and Chest Pain If Chest Pain Quality: Other (tightness in chest) If Cough Cough: Productive and White PMH PMH Past Medical History: COPD Past Surgical History: Yes Surgical History: Ortho Surgery and Other Family History Family Medical History: Diabetes Mellitus, Cancer, [place], Sudden Cardiac and Hypertension Social History Do you use any recreational Drugs:: No infectious screening Isolation: Standard ROS Review of Systems Constitutional: No Symptoms Reported Eyes: No Symptoms Reported; negative See HPI, Eye Pain, Blurred Vision, Tearing, Discharge, Photophobia, Diplopia and Other ENTM: No Symptoms Reported, Nose Discharge and Nose Congestion Respiratoy: No Symptoms Reported, Productive Cough, Short of Breath and Wheezing Cardiovascular: No Symptoms Reported and Chest Pain; negative See HPI, Edema, Palpitations, Syncope, Cyanosis, Skin Mottling and Other Gastrointestinal/Abdominal: No Symptoms Reported; negative See HPI, Abdominal Pain, Constipation, Diarrhea, Nausea, Vomiting, Food Intolerance and Other Genitourinary: No Symptoms Reported Neurological: No Symptoms Reported Musculoskeletal: No Symptoms Reported Integumentary: No Symptoms Reported Hematologic/Lymphatic: No Symptoms Reported; negative See HPI, Anemia, Blood Clots, Easy Bleeding, Easy Bruising, Swollen Glands, Lymphadenopathy and Other Endocrine: No Symptoms Reported Psychiatric: No Symptoms Reported; negative See HPI, Anxiety, Depression, Hallucinations, Excessive crying, Suicidal and Other PE Vital Signs Vitals: Temperature 98.4 F Pulse Rate [Left] 85 Pulse Rate 91 Respiratory Rate 24 Blood Pressure [Left Arm] 131/68 Blood Pressure 136/60 O2 Sat by Pulse Oximetry 100 General Limitations: No Limitations General Appearance: Alert and In Distress (slight distress with wheezing) Head Head Exam: Normal Inspection, Atraumatic and Normocephalic Eyes Eye exam: Normal Appearance, PERRL and EOMI; negative Scleral Icterus, Conjunctival Injection, Nystagmus, Miosis, Mydrasis, Periorbital Swelling, Periorbital Tenderness and Other ENT ENT Exam: Normal Exam, Normal Oropharynx, Normal External Ear Exam, Mucous Memb ranes Moist, TM's Normal Bilaterally and Other (dentures) Neck Neck Exam: Normal Inspection, Full ROM and Trachea Midline; negative Tenderness, Meningismus, Lymphadenopathy, Thyromegaly and Other Chest Chest Inspection: Normal Inspection and Symmetric Chest Wall Rise Respiratory Respiratory Exam: Prolonged Expiratory Phase and Respiratory Distress; negative Normal Lung Sounds Bilat, Accessory Muscle Use, Chest Wall Tenderness, Stridor and Other Respiratory Exam: Bilateral: Wheezing and Bilateral: Decreased Breath Sounds Cardiovascular Cardiovascular Exam: Regular Rate, Normal Rhythm, Normal Heart Sounds and Systolic Murmur Abdominal Exam Abdominal Exam: Normal Inspection, Normal Bowel Sounds and Soft; negative Distention, Tenderness, Guarding, Rebound, Rigidity, Dimnished Bowel Sounds, Hyperactive Bowel Sounds, Hypoactive Bowel Sounds, Organomegaly, Trauma, Incision, Ascites, Mass, Bruit, Pulsatile Mass, Hernia and Other Abdominal Tenderness: negative RUQ, RLQ, LUQ, LLQ, Epigastrium, Suprapubic, Diffuse, Mild, Moderate, Severe and Other Extremities Extremities Exam: Normal Inspection, Full ROM and Normal Capillary Refill; negative Tenderness, Edema, Joint Swelling, Calf Tenderness and Other Back Back Exam: Normal Inspection and Full ROM; negative Tenderness, (R) CVA Tenderness, (L) CVA Tenderness, Muscle Spasm, Paraspinal Tenderness, Vertebral Tenderness, Rashes, (R) Sciatic Notch Tenderness, (L) Sciatic Notch Tendern, (R) Straight Leg Raise, (L) Straight Leg Raise and Other Neurologic Neurological Exam: Alert, Oriented X3, CN II-XII Intact, Normal Gait (gait not tested), Motor Sensory Deficit and Reflexes Normal Psychiatric Psychiatric Exam: Normal Affect and Normal Mood; negative Depressed, Agitated, Anxious, Flat Affect, Manic, Homicidal Ideation, Suicidal Ideation and Other Skin Skin Exam: Warm, Dry, Intact and Normal Color; negative Rash, Cyanosis, Diaphoresis, Erythema, Pallor, Mottled and Other COURSE Consultation Called: 22:35 Consultation Comments: Unable to contact Dr. Adam. supervisor tubing, Naya Styles states to admit; will continue to try to contact Dr. Adam. Education/Counseling Education/Counseling: Patient and Family Educated On: Treatment, Diagnosis and Needs for Follow Up ROR Labs Reviewed Laboratory Results Reviewed?: Yes (All labs and x-ray results reviewed and discusse with patient) Result Diagrams: 12/17/19 19:12/17/19 Laboratory: WBC 8.9 X10^3/uL (3.6-10.0) 12/17/19: RBC 5.20 X10^6/uL (4.7-6.0) 12/17/19: Hgb 15.2 g/dL (13.5-18.0) 12/17/19: Hct 44.1 % (42.0-54.0) 12/17/19: MCV 84.7 fL (80.0-100.0) 12/17/19: MCH 29.2 pg (27.0-34.0) 12/17/19: MCHC 34.4 g/dL (33.0-35.0) 12/17/19 RDW 13.2 % (11.6-16.5) 12/17/19 Plt Count 159 X10^3/uL (150.0-450.0) 12/17/19 MPV 8.6 fL (7.4-11.0) 12/17/19 Neut % (Auto) 69.2 % (42.0-75.0) 12/17/19 Lymph % (Auto) 16.4 % (21.0-51.0) L 12/17/19: [place] % (Auto) 10.3 % (0.0-13.0) 12/17/19: Eos % (Auto) 3.3 % (0.9-2.9) H 12/17/19 19: Baso % (Auto) 0.8 % (0.2-1.0) 12/17/19: Neut # (Auto) 6.1 x10^3/uL (2.2-4.8) H 12/17/19: Lymph # (Auto) 1.5 X10^3/uL (1.3-2.9) 12/17/19: [place] # (Auto) 0.9 x10^3/uL (0.3-0.8) H 12/17/19: Eos # (Auto) 0.3 x10^3/uL (0.0-0.2) H 12/17/19: Baso # (Auto) 0.1 X10^3/uL (0.0-0.1) 12/17/19: Absolute Nucleated RBC 0.0 /100WBC 12/17/19: PT 14.6 SECONDS (11.8-14.3) 12/17/19: INR Target Range - 12/17/19: INR 1.18 (0.8-1.3) 12/17/19: APTT 35.3 SECONDS (22.9-36.5) 12/17/19: PTT Comment - 12/17/19: D-Dimer 1830 ng/mL (0-400) H* 12/17/19: Sodium 137 mmol/L (136-145) 12/17/19: Corrected Sodium TNP 12/17/19: Potassium 4.2 mmol/L (3.5-5.1) 12/17/19: Chloride 101 mmol/L (98-107) 12/17/19: Carbon Dioxide 26.9 mmol/L (21-32) 12/17/19: BUN 15 mg/dL (7-18) 12/17/19 19: Creatinine 2.00 mg/dL (0.70-1.30) H 12/17/19 19: Est GFR (MDRD) Af Amer 41 (>60) L 12/17/19: Est GFR (MDRD) Non-Af 34 (>60) L 12/17/19 19:28 Glucose 96 mg/dL (65-99) 12/17/19 19:28 Calcium 9.5 mg/dL (8.5-10.1) 12/17/19 19: Corrected Calcium TNP 12/17/19 19: Magnesium 1.8 mg/dL (1.7-2.9) 12/17/19 19:28 Total Bilirubin 0.50 mg/dL (0.2-1.0) 12/17/19 19:28 AST 73 Units/L (15-37) H 12/17/19 19:28 ALT 64 Units/L (12-78) 12/17/19 19:28 Alkaline Phosphatase 100 Units/L (46-116) 12/17/19 19: Creatine Kinase 1907 Units/L (39-308) H 12/17/19 19: CK-MB (CK-2) 7.9 ng/mL (0-4.0) H* 12/17/19 19: CK/CKMB % Calc 0.4 % (<4) 12/17/19 19: Troponin I < 0.02 ng/mL (0-1.5) 12/17/19 19: B-Natriuretic Peptide 47.4 pg/mL (0-79) 12/17/19 19: Total Protein 7.9 g/dL (6.4-8.2) 12/17/19 19: Albumin 3.9 g/dL (3.4-5.0) 12/17/19: Globulin 4.0 g/dL (2.5-4.5) 12/17/19 19: Albumin/Globulin Ratio 1.0 Ratio (1.1-2.1) L 12/17/19 19:28 Influenza Type A (PCR) Negative (NEGATIVE) 12/17/19 19:38 Influenza Type B (PCR) Negative (NEGATIVE) 12/17/19 19:38 Opioid Opioid Risk Tool Total: 0 Total Score Risk Category: Low Risk Copyright: Rich CARLOS predicting aberrant behaviors
[2019-12-17] MEDS ORDERED: SOLU-Medrol 125 MG VIAL ONE (19:29)
--- NOTE | 2019-12-17 19:43 | RAD ---
HISTORYsobSTUDMAURICIO FRIAS/LAT ADULTCOMPARISONMay 2018 2, CT from March 20, 2019 and January 2017.TECHNIQUETwo views of the chestFINDINGSPatchy semi organized subsegmental right upper lobe opacity is again demonstrated. Parenchymal scarring is also demonstrated within the left apex. Subtle finding of increased density in the right paratracheal space and sub carinal space most likely represent calcified lymph nodes related to old granulomatous disease. The remainder of the lungs are clear. No pleural fluid collections are identified. The heart size and mediastinal contours are normal.IMPRESSIONRedemonstrated is a patchy, semi organized right upper lobe parenchymal opacity which is favored to represent chronic scarring. Otherwise no acute infiltrates are identified. Continued radiographic follow-up recommended.Old granulomatous disease of the chestElectronically signed by: MILAGRO ABDULLAHI (Dec 17, 2019 19:42:30)
[2019-12-17 19:48] LABS: BASOPHILS # (AUTO) 0.1 X10^3/uL (0.0-0.1); BASOPHILS % (AUTO) 0.8 % (0.2-1.0); EOSINOPHILS # (AUTO) 0.3 x10^3/uL (0.0-0.2); EOSINOPHILS % (AUTO) 3.3 % (0.9-2.9); HEMATOCRIT 44.1 % (42.0-54.0); HEMOGLOBIN 15.2 g/dL (13.5-18.0); LYMPHOCYTES # (AUTO) 1.5 X10^3/uL (1.3-2.9); LYMPHOCYTES % (AUTO) 16.4 % (21.0-51.0); MEAN CORPUSCULAR HEMOGLOBIN 29.2 pg (27.0-34.0); MEAN CORPUSCULAR HGB CONC 34.4 g/dL (33.0-35.0); MEAN CORPUSCULAR VOLUME 84.7 fL (80.0-100.0); MEAN PLATELET VOLUME 8.6 fL (7.4-11.0); MONOCYTES # (AUTO) 0.9 x10^3/uL (0.3-0.8); MONOCYTES % (AUTO) 10.3 % (0.0-13.0); NEUTROPHILS # (AUTO) 6.1 x10^3/uL (2.2-4.8); NEUTROPHILS % (AUTO) 69.2 % (42.0-75.0); PLATELET COUNT 159 X10^3/uL (150.0-450.0); RED CELL DISTRIBUTION WIDTH 13.2 % (11.6-16.5); WHITE BLOOD COUNT 8.9 X10^3/uL (3.6-10.0)
[2019-12-17 19:59] LABS: BLOOD UREA NITROGEN 15 mg/dL (7-18); CALCIUM 9.5 mg/dL (8.5-10.1); CARBON DIOXIDE 26.9 mmol/L (21-32); CHLORIDE 101 mmol/L (98-107); SODIUM 137 mmol/L (136-145); TROPONIN I < 0.02 ng/mL (0-1.5); eGFR NON BLACK RACES 34 (>60)
[2019-12-17 20:22] LABS: ALANINE AMINOTRANSFERASE 64 Units/L (12-78); ALBUMIN 3.9 g/dL (3.4-5.0); ALKALINE PHOSPHATASE 100 Units/L (46-116); ASPARTATE AMINO TRANSFERASE 73 Units/L (15-37); MAGNESIUM 1.8 mg/dL (1.7-2.9); TOTAL PROTEIN 7.9 g/dL (6.4-8.2)
[2019-12-17 20:32] LABS: CKMB % 0.4 % (<4); CREATINE KINASE 1907 Units/L (39-308); CREATINE KINASE MB 7.9 ng/mL (0-4.0)
[2019-12-17] MEDS ORDERED: ROCEPHIN VIAL 1 GRAM 1 G in NS 100 ML IV + SPIKE MINIBAG* 100 ML IV ONE (21:43)
[2019-12-17] MEDS ORDERED: ROCEPHIN VIAL 1 GRAM ONE (21:51)
[2019-12-17] MEDS ORDERED: NS 100 ML IV + SPIKE MINIBAG* 100 ML IV ONE (21:51)
[2019-12-17] MEDS ORDERED: NS 1000 ML 1,000 ML ONE (23:52)
[2019-12-17] MEDS: NS 1000 ML 1,000 ML IV SCH (23:57)
[2019-12-18] MEDS ORDERED: ZITHROMAX TAB 250 MG PO ONE ×2 (00:22→00:42)
[2019-12-18 02:17] LABS: ABG ALLEN TEST P; ABG BASE EXCESS -3.4 mmol/L (-2.0-2.0); ABG HCO3 19.7 mmol/L (22-26)
[2019-12-18 02:33] VITALS: BMI 26.2
[2019-12-18] MEDS: DUONEB 0.5 MG/3 MG (3 mL) NEB SCH ×6 (02:54→20:40)
[2019-12-18 06:10] LABS: BASOPHILS % (AUTO) 0.2 % (0.2-1.0); HEMOGLOBIN 13.7 g/dL (13.5-18.0); LYMPHOCYTES # (AUTO) 0.7 X10^3/uL (1.3-2.9); LYMPHOCYTES % (AUTO) 13.3 % (21.0-51.0); MEAN CORPUSCULAR HEMOGLOBIN 29.1 pg (27.0-34.0); MEAN CORPUSCULAR HGB CONC 34.1 g/dL (33.0-35.0); MEAN CORPUSCULAR VOLUME 85.2 fL (80.0-100.0); MEAN PLATELET VOLUME 8.3 fL (7.4-11.0); MONOCYTES # (AUTO) 0.2 x10^3/uL (0.3-0.8); MONOCYTES % (AUTO) 2.9 % (0.0-13.0); NEUTROPHILS # (AUTO) 4.6 x10^3/uL (2.2-4.8); NEUTROPHILS % (AUTO) 83.6 % (42.0-75.0); PLATELET COUNT 154 X10^3/uL (150.0-450.0); RED CELL DISTRIBUTION WIDTH 13.2 % (11.6-16.5); WHITE BLOOD COUNT 5.5 X10^3/uL (3.6-10.0)
[2019-12-18 06:35] LABS: CALCIUM 8.6 mg/dL (8.5-10.1); CARBON DIOXIDE 23.4 mmol/L (21-32); CREATININE 1.83 mg/dL (0.70-1.30)
--- NOTE | 2019-12-18 06:36 | RAD ---
HISTORYCOPD and dyspnea.STUDYCHEST, 1 VIEWCOMPARISONChest radiograph dated December 17, 2019FINDINGSThe trachea is midline. The cardiac silhouette is unremarkable. Background changes of bronchitis/COPD observed with an unchanged, scar-like, right upper lobe parenchymal opacity. This could reflect infection, scarring, or malignancy. Continued follow-up is needed. No other cardiopulmonary changes are appreciated. The bony thorax is unremarkable.IMPRESSIONThe trachea is midline. The cardiac silhouette is unremarkable. Background changes of bronchitis/COPD observed with an unchanged, scar-like, right upper lobe parenchymal opacity. This could reflect infection, scarring, or malignancy. Continued follow-up is needed. No other cardiopulmonary changes are appreciated. The bony thorax is unremarkable.Electronically signed by: DUC AUSTIN III (Dec 18, 2019 06:35:24)
[2019-12-18] MEDS: NS 1000 ML 1,000 ML IV SCH ×4 (06:42→21:09)
[2019-12-18 07:46] LABS: CREATINE KINASE MB 3.7 ng/mL (0-4.0); TROPONIN I < 0.02 ng/mL (0-1.5)
[2019-12-18 07:53] LABS: CKMB % 0.3 % (<4); CREATINE KINASE 1372 Units/L (39-308)
[2019-12-18] MEDS ORDERED: SALINE 3% 15 ML NEB TX NEB ONE (08:44)
[2019-12-18] MEDS ORDERED: FOLIC ACID 800 MCG PO SCH (09:00)
[2019-12-18] MEDS ORDERED: LEVAQUIN PREMIX IV 500 MG 500 MG/100 ML BAG IV SCH (09:00)
[2019-12-18] MEDS: ASPIRIN 81 MG CHEWTAB PO SCH (09:25)
[2019-12-18] MEDS: CRESTOR TAB 10 MG PO SCH (09:25)
[2019-12-18] MEDS: LEVAQUIN PREMIX IV 250 MG 250 MG/50 ML BAG IV SCH (09:26)
[2019-12-18] MEDS: SYNTHROID 100 mcg TAB PO SCH (09:26)
[2019-12-18] MEDS: FLOMAX PO SCH (09:26)
--- NOTE | 2019-12-18 21:52 | DR.H&P ---
H&P - History & Physical for Day of: H&P Date: 12/18/19 - Chief Complaint Chief Complaint: COUGH, SOB, WHEEZING - History of Present Illness History of Present Illness: IS A 84 YEAR OLD PATIENT OF OURS WHO PRESENTED TO THE ER WITH COMPLAINT OF A PRODUCTIVE COUGH, CONGESTION, SOB, AND WHEEZING FOR THE PAST 2-3 DAYS. HE REPORTS USE OF NEBULIZER TREATMENTS AND HOME OXYGEN WITHOUT IMPROVEMENT IN SYMPTOMS. HE DENIES CHEST PAIN. PMH INCLUDES COPD. ON ARRIVAL TO THE ER, VITALS WERE 98.4-84-24-94%RA-136/60. LABS WERE OBTAINED. ABNORMAL LAB VALUES INCLUDE THE FOLLOWING: D-DIMER 1830, CREATININE 2.00, AST 73, CREATINE KINASE 1907, CK-MB 7.9. INFLUENZA NEGATIVE. ABG REVEALED: PH 7.440, PC02 29.0, P02 84.0, HC03 19.7, 02 SATURATION 97.0, BASE EXCESS -3.4. BLOOD AND SPUTUM CULTURES WERE OBTAINED. A CHEST XRAY WAS OBTAINED AND REVEALED: Redemonstrated is a patchy, semi organized right upper lobe parenchymal opacity which is favored to represent chronic scarring. Otherwise no acute infiltrates are identified. Continued radiographic follow-up recommended. Old granulomatous disease of the chest. EKG REVEALED: SINUS RHYTHM WITH HR 74. HE WAS GIVEN ZITHROMAX 500MG PO X 1, DUONEB X 1, ROCEPHIN 1G IV X 2, AND SOLU-MEDROL 125MG IV X 1. HE WAS ADMITTED FOR FURTHER EVALUATION AND TREATMENT OF COPD EXACERBATION, ACUTE BRONCHITIS, RHABDOMYOLOSIS, DEHYDRATION, AND CHRONIC KIDNEY DISEASE. HE WAS STARTED ON NORMAL SALINE AT 125ML/HR, LEVAQUIN 250MG IV DAILY, SOLU-MEDROL 80MG IV Q4H, RESPIRATORY TX, SUPPLEMENTAL OXYGEN, AND HOME MEDS WERE RESUMED. OTHERWISE, WE PLAN TO FOLLOW UP WITH AM LABS AND XRAY AND CONTINUE TO MONITOR. - Past Medical History Past Medical History: COPD - Past Surgical History Surgical History: Ortho Surgery, Other - Family History Family Medical History: Diabetes Mellitus, Cancer, [place], Sudden Cardiac , Hypertension - Social History Does patient currently use any type of tobacco product: No Have you used tobacco products in the last 12 months: No Type of Tobacco Use: None Does any household member use tobacco: No Alcohol Use: None Drug Use: None Prescription drug monitoring program results: PDMP reviewed and no concerns identified - Medications Home Medications: No Known Drug Allergies Allergy (Verified 12/17/19 19:31) CONTINUE taking the following medications codeine-guaifenesin [Virtussin AC] 10 ml PO Q4-6H PRN 12/17/19 [History] coenzyme Q10 10 mg PO DAILY 12/17/19 [History] escitalopram oxalate 10 mg PO DAILY 12/17/19 [History] folic acid 800 mcg PO DAILY 12/17/19 [History] levothyroxine 100 mcg PO DAILY 12/17/19 [History] multivitamin [Multiple Vitamins] 1 tab PO DAILY 12/17/19 [History] omega-3 fatty acids-fish oil [Fish Oil] 1 cap PO DAILY 12/17/19 [History] rosuvastatin 20 mg PO DAILY 12/17/19 [History] - Review of Systems Constitutional: See HPI, Fever, Weakness Eyes: No Symptoms Reported ENT: No Symptoms Reported Respiratory: Shortness of Breath, SOB with Excertion, Sputum, Wheezing Cardiovascular: No Symptoms Reported Gastrointestinal: No Symptoms Reported Genitourinary: No Symptoms Reported Musculoskeletal: No Symptoms Reported Skin: No Symptoms Reported Neurological: Weakness - Physical Exam Vital Signs: Temperature 98.5 F Pulse Rate [Left] 90 Pulse Rate 94 Respiratory Rate 18 Blood Pressure [Left Arm] 117/54 Blood Pressure 136/60 O2 Sat by Pulse Oximetry 92 Oriented: Normal Eyes: Normal Ear: Normal Nose: Normal Throat: Normal Respiratory: Diminished Throughout, Wheezes Throughout Cardiovascular: Normal : Normal Auscultation: Bowel Sounds: Normal Palpation: Normal Tenderness: Normal Skin: Normal Musculoskeletal: Normal Psychiatric: Normal Mood Description: Calm Affect: Normal Speech Pattern: Clear - Assessment/Plan (1) COPD (chronic obstructive pulmonary disease) with acute bronchitis Status: Acute Plan: SOLU-MEDROL 80MG IV Q8H, LEVAQUIN 250MG IV DAILY, RESPIRATORY TX, SUPPLEMENTAL OXYGEN, CONTINUE TO MONITOR (2) Acute dehydration Status: Acute Plan: NS AT 125ML/HR, CONTINUE TO MONITOR (3) Chronic kidney disease (CKD) Qualifiers: Chronic kidney disease stage: stage 3 (moderate) Qualified Code(s): N18.3 - Chronic kidney disease, stage 3 (moderate) Status: Acute (4) Rhabdomyolysis Qualifiers: Rhabdomyolysis type: non-traumatic Qualified Code(s): M62.82 - Rhabdomyolysis Status: Acute Plan: NS AT 125ML/HR, CONTINUE TO MONITOR - Allergies Allergies/Adverse Reactions: Allergies Allergy/AdvReac Type Severity Reaction Status Date / Time No Known Drug Allergies Allergy Verified 12/17/19 19:31
[2019-12-19] MEDS: DUONEB 0.5 MG/3 MG (3 mL) NEB SCH ×6 (00:39→20:25)
[2019-12-19] MEDS: NS 1000 ML 1,000 ML IV SCH ×4 (01:14→19:52)
[2019-12-19] MEDS ORDERED: TYLENOL 325 MG TAB PO ONE (01:16)
[2019-12-19] MEDS: TYLENOL 325 MG TAB PO PRN (01:27)
[2019-12-19 06:58] LABS: BASOPHILS % (AUTO) 0.1 % (0.2-1.0); EOSINOPHILS % (AUTO) 0.2 % (0.9-2.9); HEMATOCRIT 35.7 % (42.0-54.0); HEMOGLOBIN 12.3 g/dL (13.5-18.0); LYMPHOCYTES # (AUTO) 1.3 X10^3/uL (1.3-2.9); LYMPHOCYTES % (AUTO) 14.4 % (21.0-51.0); MEAN CORPUSCULAR HEMOGLOBIN 29.4 pg (27.0-34.0); MEAN CORPUSCULAR HGB CONC 34.5 g/dL (33.0-35.0); MEAN CORPUSCULAR VOLUME 85.3 fL (80.0-100.0); MEAN PLATELET VOLUME 8.3 fL (7.4-11.0); MONOCYTES % (AUTO) 11.1 % (0.0-13.0); NEUTROPHILS # (AUTO) 6.9 x10^3/uL (2.2-4.8); NEUTROPHILS % (AUTO) 74.2 % (42.0-75.0); PLATELET COUNT 143 X10^3/uL (150.0-450.0); RED BLOOD COUNT 4.19 X10^6/uL (4.7-6.0); RED CELL DISTRIBUTION WIDTH 13.4 % (11.6-16.5); WHITE BLOOD COUNT 9.3 X10^3/uL (3.6-10.0)
--- NOTE | 2019-12-19 07:19 | RAD ---
HISTORYShortness of breath, right lung massSTUDYCHEST, 1 VIEWCOMPARISONFebruary 2019FINDINGSThe heart is within normal limits in size. The jonathan are normal. The lungs are well inflated. No acute alveolar infiltrates or pleural effusions are identified. Stable parenchymal opacities present in the right upper lobe. Bony thorax is unremarkable.IMPRESSIONMild interstitial lung changes, stableStable right upper lobe opacity again identifiedElectronically signed by: JORDAN CALLAHAN (Dec 19, 2019 07:18:05)
[2019-12-19 07:52] LABS: ALBUMIN 2.7 g/dL (3.4-5.0); CALCIUM 7.9 mg/dL (8.5-10.1); COR CA(FOR HYPOALB) 8.9 mg/dL (8.5-10.1); CREATININE 1.51 mg/dL (0.70-1.30); TOTAL PROTEIN 5.9 g/dL (6.4-8.2); TROPONIN I 0.28 ng/mL (0-1.5)
[2019-12-19 07:54] LABS: CREATINE KINASE MB 7.8 ng/mL (0-4.0)
[2019-12-19] MEDS: FLOMAX PO SCH (08:26)
[2019-12-19] MEDS: FOLIC ACID TAB 1 MG PO SCH (08:26)
[2019-12-19] MEDS: CRESTOR TAB 10 MG PO SCH (08:26)
[2019-12-19] MEDS: SYNTHROID 100 mcg TAB PO SCH (08:26)
[2019-12-19] MEDS: ASPIRIN 81 MG CHEWTAB PO SCH (08:26)
[2019-12-19] MEDS: LEVAQUIN PREMIX IV 250 MG 250 MG/50 ML BAG IV SCH (08:27)
[2019-12-19] MEDS: SOLU-Medrol 40 MG VIAL IVP SCH ×2 (08:30→16:43)
[2019-12-19] MEDS: LOVENOX INJ 40 MG SYR SC SCH (10:15)
--- NOTE | 2019-12-19 22:12 | PCM.PROG ---
Progress Note - Progress Note for Day of Date of Exam: 12/19/19 - Subjective Subjective: NORMAL SALINE AT 125ML/HR, LEVAQUIN 250MG IV DAILY, SOLU-MEDROL 80MG IV Q4H, RESPIRATORY TX, SUPPLEMENTAL OXYGEN, AND HOME MEDS WERE RESUMED. - Past Medical Family Social History Past Med/Fam/Surg Hx: No changes since H&P Allergies: Allergies No Known Drug Allergies Allergy (Verified 12/17/19 19:31) - Review of Systems ROS: No change since H&P - Vital Signs and I&O's Vital Signs: Temperature 97.9 F Pulse Rate [Left] 95 Pulse Rate 92 Respiratory Rate 20 Blood Pressure [Left Arm] 198/93 Blood Pressure 136/60 O2 Sat by Pulse Oximetry 98 Intake and Output: Intake & Output 12/17/19 12/18/19 12/19/19 12/20/19 11:59 11:59 11:59 11:59 Intake Total 0 / 0 2600 / 2600 600 / 600 Balance 0 / 0 2600 / 2600 600 / 600 - Physical Exam Oriented: Normal Eyes: Normal Ear: Normal Nose: Normal Throat: Normal Respiratory: Generalized, Wheezes Cardiovascular: Normal : Normal Auscultation: Bowel Sounds: Normal Palpation: Normal Tenderness: Normal Skin: Normal Musculoskeletal: Normal Psychiatric: Normal Mood Description: Calm Affect: Normal Speech Pattern: Clear, Appropriate - Laboratory and Diagnostics Result Diagrams: 12/19/19 06:25 12/19/19 06:25 Labs: 12/18/19 10:15 Sputum - Expectorated Sputum Sputum Culture - Preliminary 12/18/19 10:15 Sputum - Expectorated Sputum - Final Laboratory WBC 9.3 X10^3/uL (3.6-10.0) 12/19/19 06:25 RBC 4.19 X10^6/uL (4.7-6.0) L 12/19/19 06:25 Hgb 12.3 g/dL (13.5-18.0) L 12/19/19 06:25 Hct 35.7 % (42.0-54.0) L 12/19/19 06:25 MCV 85.3 fL (80.0-100.0) 12/19/19 06:25 MCH 29.4 pg (27.0-34.0) 12/19/19 06:25 MCHC 34.5 g/dL (33.0-35.0) 12/19/19 06:25 RDW 13.4 % (11.6-16.5) 12/19/19 06:25 Plt Count 143 X10^3/uL (150.0-450.0) L 12/19/19 06:25 MPV 8.3 fL (7.4-11.0) 12/19/19 06:25 Neut % (Auto) 74.2 % (42.0-75.0) 12/19/19 06:25 Lymph % (Auto) 14.4 % (21.0-51.0) L 12/19/19 06:25 [place] % (Auto) 11.1 % (0.0-13.0) 12/19/19 06:25 Eos % (Auto) 0.2 % (0.9-2.9) L 12/19/19 06:25 Baso % (Auto) 0.1 % (0.2-1.0) L 12/19/19 06:25 Neut # (Auto) 6.9 x10^3/uL (2.2-4.8) H 12/19/19 06:25 Lymph # (Auto) 1.3 X10^3/uL (1.3-2.9) 12/19/19 06:25 [place] # (Auto) 1.0 x10^3/uL (0.3-0.8) H 12/19/19 06:25 Eos # (Auto) 0.0 x10^3/uL (0.0-0.2) 12/19/19 06:25 Baso # (Auto) 0.0 X10^3/uL (0.0-0.1) 12/19/19 06:25 Absolute Nucleated RBC 0.0 /100WBC 12/19/19 06:25 PT 14.6 SECONDS (11.8-14.3) 12/17/19 19:28 INR Target Range - 12/17/19 19:28 INR 1.18 (0.8-1.3) 12/17/19 19:28 APTT 35.3 SECONDS (22.9-36.5) 12/17/19 19:28 PTT Comment - 12/17/19 19:28 D-Dimer 1830 ng/mL (0-400) H* 12/17/19 19:28 Sample Site Rr 12/18/19 02:10 ABG pH 7.440 (7.35-7.45) 12/18/19 02:10 ABG pCO2 29.0 mmHg (35.0-45.0) L 12/18/19 02:10 ABG pO2 84.0 mmHg (80.0-100.0) 12/18/19 02:10 ABG HCO3 19.7 mmol/L (22-26) L 12/18/19 02:10 ABG O2 Saturation 97.0 % (90-100) 12/18/19 02:10 ABG Base Excess -3.4 mmol/L (-2.0-2.0) L 12/18/19 02:10 Tuan Test P 12/18/19 02:10 A-a Gradient 79.0 mmHg 12/18/19 02:10 FiO2 28.0 12/18/19 02:10 Blood Gas Comments Emma well 12/18/19 02:10 Sodium 141 mmol/L (136-145) 12/19/19 06:25 Corrected Sodium 142 mmol/L (136-145) 12/19/19 06:25 Potassium 4.2 mmol/L (3.5-5.1) 12/19/19 06:25 Chloride 110 mmol/L (98-107) H 12/19/19 06:25 Carbon Dioxide 23.0 mmol/L (21-32) 12/19/19 06:25 BUN 20 mg/dL (7-18) H 12/19/19 06:25 Creatinine 1.51 mg/dL (0.70-1.30) H 12/19/19 06:25 Est GFR (MDRD) Af Amer 57 (>60) L 12/19/19 06:25 Est GFR (MDRD) Non-Af 47 (>60) L 12/19/19 06:25 Glucose 156 mg/dL (65-99) H 12/19/19 06:25 Calcium 7.9 mg/dL (8.5-10.1) L 12/19/19 06:25 Corrected Calcium 8.9 mg/dL (8.5-10.1) 12/19/19 06:25 Magnesium 1.8 mg/dL (1.7-2.9) 12/17/19 19:28 Total Bilirubin 0.20 mg/dL (0.2-1.0) 12/19/19 06:25 AST 51 Units/L (15-37) H 12/19/19 06:25 ALT 51 Units/L (12-78) 12/19/19 06:25 Alkaline Phosphatase 76 Units/L (46-116) 12/19/19 06:25 Creatine Kinase 762 Units/L (39-308) H 12/19/19 06:25 CK-MB (CK-2) 7.8 ng/mL (0-4.0) H* 12/19/19 06:25 CK/CKMB % Calc 1.0 % (<4) 12/19/19 06:25 Troponin I 0.28 ng/mL (0-1.5) 12/19/19 06:25 B-Natriuretic Peptide 47.4 pg/mL (0-79) 12/17/19 19:28 Total Protein 5.9 g/dL (6.4-8.2) L 12/19/19 06:25 Albumin 2.7 g/dL (3.4-5.0) L 12/19/19 06:25 Globulin 3.2 g/dL (2.5-4.5) 12/19/19 06:25 Albumin/Globulin Ratio 0.8 Ratio (1.1-2.1) L 12/19/19 06:25 Influenza Type A (PCR) Negative (NEGATIVE) 12/17/19 19:38 Influenza Type B (PCR) Negative (NEGATIVE) 12/17/19 19:38 - Plan (1) COPD (chronic obstructive pulmonary disease) with acute bronchitis Status: Acute Plan: SOLU-MEDROL 80MG IV Q8H, LEVAQUIN 250MG IV DAILY, RESPIRATORY TX, SUPPLEMENTAL OXYGEN, CONTINUE TO MONITOR (2) Acute dehydration Status: Acute Plan: NS AT 125ML/HR, CONTINUE TO MONITOR (3) Chronic kidney disease (CKD) Status: Acute Qualifiers: Chronic kidney disease stage: stage 3 (moderate) Qualified Code(s): N18.3 - Chronic kidney disease, stage 3 (moderate) (4) Rhabdomyolysis Status: Acute Qualifiers: Rhabdomyolysis type: non-traumatic Qualified Code(s): M62.82 - Rhabdomyolysis Plan: NS AT 125ML/HR, CONTINUE TO MONITOR
[2019-12-20] MEDS: DUONEB 0.5 MG/3 MG (3 mL) NEB SCH ×6 (00:45→21:05)
[2019-12-20] MEDS: SOLU-Medrol 40 MG VIAL IVP SCH ×2 (02:30→08:48)
[2019-12-20] MEDS: NS 1000 ML 1,000 ML IV SCH ×4 (03:30→17:06)
[2019-12-20] MEDS: TYLENOL 325 MG TAB PO PRN (03:54)
[2019-12-20 05:48] LABS: BASOPHILS % (AUTO) 0 % (0.2-1.0); HEMATOCRIT 40.8 % (42.0-54.0); HEMOGLOBIN 13.9 g/dL (13.5-18.0); LYMPHOCYTES # (AUTO) 0.7 X10^3/uL (1.3-2.9); LYMPHOCYTES % (AUTO) 5.9 % (21.0-51.0); MEAN CORPUSCULAR HEMOGLOBIN 29.4 pg (27.0-34.0); MEAN CORPUSCULAR HGB CONC 34.2 g/dL (33.0-35.0); MEAN PLATELET VOLUME 8.6 fL (7.4-11.0); MONOCYTES # (AUTO) 0.5 x10^3/uL (0.3-0.8); MONOCYTES % (AUTO) 4.7 % (0.0-13.0); NEUTROPHILS # (AUTO) 10.2 x10^3/uL (2.2-4.8); NEUTROPHILS % (AUTO) 89.4 % (42.0-75.0); PLATELET COUNT 152 X10^3/uL (150.0-450.0); RED BLOOD COUNT 4.74 X10^6/uL (4.7-6.0); RED CELL DISTRIBUTION WIDTH 13.7 % (11.6-16.5); WHITE BLOOD COUNT 11.4 X10^3/uL (3.6-10.0)
--- NOTE | 2019-12-20 06:23 | RAD ---
HISTORYShortness of breathSTUDYCHEST, 1 VIEWCOMS[facility]uary 2019FINDINGSHeart is within normal limits in size. The jonathan are normal. The lungs are well inflated and free of acute infiltrates. No pleural effusions are identified. Stable parenchymal opacities are again identified in the right upper lobe. Bony thorax is unremarkable.IMPRESSIONNo significant change from the prior examinationElectronically signed by: JORDAN CALLAHAN (Dec 20, 2019 06:22:29)
[2019-12-20 06:30] LABS: ALBUMIN 3.3 g/dL (3.4-5.0); CALCIUM 8.7 mg/dL (8.5-10.1); CARBON DIOXIDE 20.2 mmol/L (21-32); CKMB % 1.8 % (<4); COR CA(FOR HYPOALB) 9.3 mg/dL (8.5-10.1); CREATININE 1.45 mg/dL (0.70-1.30); TOTAL PROTEIN 7.3 g/dL (6.4-8.2); TROPONIN I 0.13 ng/mL (0-1.5)
[2019-12-20 06:40] LABS: CREATINE KINASE MB 12.2 ng/mL (0-4.0)
[2019-12-20] MEDS: FOLIC ACID TAB 1 MG PO SCH (08:42)
[2019-12-20] MEDS: FLOMAX PO SCH (08:42)
[2019-12-20] MEDS: LOVENOX INJ 40 MG SYR SC SCH (08:42)
[2019-12-20] MEDS: ASPIRIN 81 MG CHEWTAB PO SCH (08:42)
[2019-12-20] MEDS: LEVAQUIN PREMIX IV 250 MG 250 MG/50 ML BAG IV SCH (08:43)
[2019-12-20] MEDS: SYNTHROID 100 mcg TAB PO SCH (08:43)
[2019-12-20] MEDS: CRESTOR TAB 10 MG PO SCH (08:46)
[2019-12-20] MEDS: LEVSIN/MAALOX/LIDOC VISC PO SCH ×4 (11:38→21:16)
[2019-12-20] MEDS: PEPCID 20 MG IV PREMIX* 20 MG/50 ML BAG IV SCH ×2 (11:39→21:23)
[2019-12-20] MEDS: PROTONIX INJ 40 MG VIAL IVP SCH ×2 (11:39→21:23)
[2019-12-20] MEDS ORDERED: MEMANTINE PO SCH (11:45)
[2019-12-20] MEDS ORDERED: COENZYME Q10 10 MG PO SCH (11:45)
[2019-12-20] MEDS ORDERED: TIOTROPIUM BROMIDE MONOHYDRATE INH SCH (11:45)
[2019-12-20 11:49] LABS: CKMB % 1.9 % (<4); TROPONIN I 0.09 ng/mL (0-1.5)
[2019-12-20 11:52] LABS: CREATINE KINASE MB 12.3 ng/mL (0-4.0)
[2019-12-20] MEDS ORDERED: LEXAPRO ONE (12:59)
[2019-12-20] MEDS: ARICEPT TAB 10 MG PO SCH (13:08)
[2019-12-20] MEDS: LOVAZA PO SCH (13:08)
[2019-12-20] MEDS: LEXAPRO PO SCH (13:09)
[2019-12-20] MEDS: TAB-A-VITE PO SCH (13:09)
[2019-12-20 15:12] LABS: CKMB % 1.8 % (<4); TROPONIN I 0.11 ng/mL (0-1.5)
[2019-12-20 15:16] LABS: CREATINE KINASE MB 13.4 ng/mL (0-4.0)
[2019-12-20 19:24] LABS: CKMB % 1.9 % (<4); TROPONIN I 0.11 ng/mL (0-1.5)
[2019-12-20 19:28] LABS: CREATINE KINASE MB 14.9 ng/mL (0-4.0)
[2019-12-20] MEDS: NIASPAN ER TAB 500 MG PO SCH (21:22)
--- NOTE | 2019-12-20 22:59 | PCM.PROG ---
Progress Note - Progress Note for Day of Date of Exam: 12/20/19 - Subjective Subjective: IS BEING TREATED FOR COPD, ACUTE DEHYDRATION, CHRONIC KIDNEY DISEASE, AND RHABDOMYOLYSIS. TODAY, HE IS ALERT AND ORIENTED, LYING IN BED ON MORNING ROUNDS. HE CONTINUES WITH COMPLAINTS OF COUGH AND SHORTNESS OF BREATH. HE REPORTS THAT SYMPTOMS SEEM TO BE WORSE TODAY. HE ALSO REPORTS I NDIGESTION. ON EXAMINATION, HE IS NOTED WITH REDNESS TO FACE AND NECK. HEART IS REGULAR IN RATE AND RHYTHM. BILATERAL LUNGS ARE NOTED WITH SCATTERED WHEEZING THROUGHOUT. ABDOMEN IS ROUND, SOFT, AND NON-TENDER WITH NORMAL BOWEL SOUNDS NOTED IN ALL QUADRANTS. HIS VITALS THIS MORNING ARE: 97.8-93-24-97%-171/79. LABS WERE OBTAINED. ABNORMAL LAB VALUES INCLUDE THE FOLLOWING: HGB 11.4, HCT 40.8, CARBON DIOXIDE 20.2, BUN 19, CREATININE 1.45, GLCUOSE 152, AST 64, CREATINE KINASE 674, CK-MB 12.2, ALBUMIN 3.3. BLOOD AND SPUTUM CULTURES PENDING. CHEST XRAY REVEALED: NO SIGNIFICANT CHANGE FROM THE PRIOR EXAMINATION. HE IS CURRENTLY RECEIVING NORMAL SALINE AT 125ML/HR, LEVAQUIN 250MG IV, DAILY, SOLU-MEDROL 80MG IV Q4H, RESPIRATORY TX, SUPPLEMENTAL OXYGEN, AND HOME MEDS WERE RESUMED. TODAY, WE WILL DISCONTINUE THE SOLU-MEDROL. WE WILL START PEPCID IV, PROTONIX IV, AND GI COCKTAIL. WE WILL OBTAIN SERIAL CARDIAC ENZYMES AND EKGS. OTHERWISE, WE WILL FOLLOW UP WITH AM LABS AND CHEST XRAY AND CONTINUE TO MONITOR. - Past Medical Family Social History Past Med/Fam/Surg Hx: No changes since H&P Allergies: Allergies No Known Drug Allergies Allergy (Verified 12/17/19 19:31) - Review of Systems ROS: No change since H&P - Vital Signs and I&O's Vital Signs: Temperature 97.9 F Pulse Rate [Left] 95 Pulse Rate 85 Respiratory Rate 22 Blood Pressure [Left Arm] 151/79 Blood Pressure 136/60 O2 Sat by Pulse Oximetry 96 Intake and Output: Intake & Output 12/18/19 12/19/19 12/20/19 12/21/19 11:59 11:59 11:59 11:59 Intake Total 0 / 0 2600 / 2600 2540 / 2540 1680 / 1680 Balance 0 / 0 2600 / 2600 2540 / 2540 1680 / 1680 - Physical Exam Oriented: Normal Eyes: Normal Ear: Normal Nose: Normal Throat: Normal Respiratory: Generalized, Wheezes Cardiovascular: Normal : Normal Auscultation: Bowel Sounds: Normal Palpation: Normal Tenderness: Normal Skin: Normal Musculoskeletal: Normal Psychiatric: Normal Mood Description: Calm Affect: Normal Speech Pattern: Clear, Appropriate - Laboratory and Diagnostics Result Diagrams: 12/20/19 05:29 12/20/19 05:29 Labs: 12/18/19 00:47 Blood Blood Culture - Preliminary 12/18/19 10:15 Sputum - Expectorated Sputum Sputum Culture - Final 12/18/19 10:15 Sputum - Expectorated Sputum - Final Laboratory WBC 11.4 X10^3/uL (3.6-10.0) H 12/20/19 05:29 RBC 4.74 X10^6/uL (4.7-6.0) 12/20/19 05:29 Hgb 13.9 g/dL (13.5-18.0) 12/20/19 05:29 Hct 40.8 % (42.0-54.0) L 12/20/19 05:29 MCV 86.0 fL (80.0-100.0) 12/20/19 05:29 MCH 29.4 pg (27.0-34.0) 12/20/19 05:29 MCHC 34.2 g/dL (33.0-35.0) 12/20/19 05:29 RDW 13.7 % (11.6-16.5) 12/20/19 05:29 Plt Count 152 X10^3/uL (150.0-450.0) 12/20/19 05:29 MPV 8.6 fL (7.4-11.0) 12/20/19 05:29 Neut % (Auto) 89.4 % (42.0-75.0) H 12/20/19 05:29 Lymph % (Auto) 5.9 % (21.0-51.0) L 12/20/19 05:29 [place] % (Auto) 4.7 % (0.0-13.0) 12/20/19 05:29 Eos % (Auto) 0.0 % (0.9-2.9) L 12/20/19 05:29 Baso % (Auto) 0 % (0.2-1.0) L 12/20/19 05:29 Neut # (Auto) 10.2 x10^3/uL (2.2-4.8) H 12/20/19 05:29 Lymph # (Auto) 0.7 X10^3/uL (1.3-2.9) L 12/20/19 05:29 [place] # (Auto) 0.5 x10^3/uL (0.3-0.8) 12/20/19 05:29 Eos # (Auto) 0.0 x10^3/uL (0.0-0.2) 12/20/19 05:29 Baso # (Auto) 0.0 X10^3/uL (0.0-0.1) 12/20/19 05:29 Absolute Nucleated RBC 0.0 /100WBC 12/20/19 05: PT 14.6 SECONDS (11.8-14.3) 12/17/19 19:28 INR Target Range - 12/17/19 19:28 INR 1.18 (0.8-1.3) 12/17/19 19:28 APTT 35.3 SECONDS (22.9-36.5) 12/17/19 19:28 PTT Comment - 12/17/19 19:28 D-Dimer 1830 ng/mL (0-400) H* 12/17/19 19:28 Sample Site Rr 12/18/19 02:10 ABG pH 7.440 (7.35-7.45) 12/18/19 02:10 ABG pCO2 29.0 mmHg (35.0-45.0) L 12/18/19 02:10 ABG pO2 84.0 mmHg (80.0-100.0) 12/18/19 02:10 ABG HCO3 19.7 mmol/L (22-26) L 12/18/19 02:10 ABG O2 Saturation 97.0 % (90-100) 12/18/19 02:10 ABG Base Excess -3.4 mmol/L (-2.0-2.0) L 12/18/19 02:10 Tuan Test P 12/18/19 02:10 A-a Gradient 79.0 mmHg 12/18/19 02:10 FiO2 28.0 12/18/19 02:10 Blood Gas Comments Emma well 12/18/19 02:10 Sodium 140 mmol/L (136-145) 12/20/19 05:29 Corrected Sodium 141 mmol/L (136-145) 12/20/19 05:29 Potassium 4.0 mmol/L (3.5-5.1) 12/20/19 05:29 Chloride 105 mmol/L (98-107) 12/20/19 05:29 Carbon Dioxide 20.2 mmol/L (21-32) L 12/20/19 05:29 BUN 19 mg/dL (7-18) H 12/20/19 05:29 Creatinine 1.45 mg/dL (0.70-1.30) H 12/20/19 05:29 Est GFR (MDRD) Af Amer 60 (>60) 12/20/19 05:29 Est GFR (MDRD) Non-Af 50 (>60) L 12/20/19 05:29 Glucose 152 mg/dL (65-99) H 12/20/19 05:29 Calcium 8.7 mg/dL (8.5-10.1) 12/20/19 05:29 Corrected Calcium 9.3 mg/dL (8.5-10.1) 12/20/19 05:29 Magnesium 1.9 mg/dL (1.7-2.9) 12/20/19 05:29 Total Bilirubin 0.40 mg/dL (0.2-1.0) 12/20/19 05:29 AST 64 Units/L (15-37) H 12/20/19 05:29 ALT 76 Units/L (12-78) 12/20/19 05:29 Alkaline Phosphatase 91 Units/L (46-116) 12/20/19 05:29 Creatine Kinase 774 Units/L (39-308) H 12/20/19 18:30 CK-MB (CK-2) 14.9 ng/mL (0-4.0) H* 12/20/19 18:30 CK/CKMB % Calc 1.9 % (<4) 12/20/19 18:30 Troponin I 0.11 ng/mL (0-1.5) 12/20/19 18:30 B-Natriuretic Peptide 47.4 pg/mL (0-79) 12/17/19 19:28 Total Protein 7.3 g/dL (6.4-8.2) 12/20/19 05:29 Albumin 3.3 g/dL (3.4-5.0) L 12/20/19 05:29 Globulin 4.0 g/dL (2.5-4.5) 12/20/19 05:29 Albumin/Globulin Ratio 0.8 Ratio (1.1-2.1) L 12/20/19 05:29 Influenza Type A (PCR) Negative (NEGATIVE) 12/17/19 19:38 Influenza Type B (PCR) Negative (NEGATIVE) 12/17/19 19:38 - Plan (1) COPD (chronic obstructive pulmonary disease) with acute bronchitis Status: Acute Plan: LEVAQUIN 250MG IV DAILY, RESPIRATORY TX, SUPPLEMENTAL OXYGEN, CONTINUE TO MONITOR (2) Acute dehydration Status: Acute Plan: NS AT 125ML/HR, CONTINUE TO MONITOR (3) Chronic kidney disease (CKD) Status: Acute Qualifiers: Chronic kidney disease stage: stage 3 (moderate) Qualified Code(s): N18.3 - Chronic kidney disease, stage 3 (moderate) (4) Rhabdomyolysis Status: Acute Qualifiers: Rhabdomyolysis type: non-traumatic Qualified Code(s): M62.82 - Rhabdomyolysis Plan: NS AT 125ML/HR, CONTINUE TO MONITOR
[2019-12-21] MEDS: DUONEB 0.5 MG/3 MG (3 mL) NEB SCH ×6 (00:59→21:03)
[2019-12-21] MEDS: NS 1000 ML 1,000 ML IV SCH ×4 (01:09→15:57)
[2019-12-21 06:02] LABS: BASOPHILS % (AUTO) 0 % (0.2-1.0); HEMATOCRIT 34.7 % (42.0-54.0); HEMOGLOBIN 12.1 g/dL (13.5-18.0); LYMPHOCYTES # (AUTO) 1.1 X10^3/uL (1.3-2.9); LYMPHOCYTES % (AUTO) 9.9 % (21.0-51.0); MEAN CORPUSCULAR HEMOGLOBIN 29.8 pg (27.0-34.0); MEAN CORPUSCULAR HGB CONC 34.9 g/dL (33.0-35.0); MEAN CORPUSCULAR VOLUME 85.4 fL (80.0-100.0); MONOCYTES # (AUTO) 0.9 x10^3/uL (0.3-0.8); MONOCYTES % (AUTO) 8.3 % (0.0-13.0); NEUTROPHILS # (AUTO) 8.9 x10^3/uL (2.2-4.8); NEUTROPHILS % (AUTO) 81.8 % (42.0-75.0); PLATELET COUNT 132 X10^3/uL (150.0-450.0); RED BLOOD COUNT 4.06 X10^6/uL (4.7-6.0); RED CELL DISTRIBUTION WIDTH 13.5 % (11.6-16.5); WHITE BLOOD COUNT 10.8 X10^3/uL (3.6-10.0)
--- NOTE | 2019-12-21 06:16 | RAD ---
HISTORYShortness of breathSTUDYCHEST, 1 [facility]COMPARPe[facility]uary 2019FINDINGSThe heart is within normal limits in size. The jonathan are normal. The lungs are well inflated and free of acute infiltrates. No pleural effusions are identified. Stable nodular parenchymal opacities are present in the right upper lobe. No pleural effusions are identified. The bony thorax is unremarkable.IMPRESSIONNo significant change from the prior examinationElectronically signed by: JORDAN CALLAHAN (Dec 21, 2019 06:14:43)
[2019-12-21 06:52] LABS: ALANINE AMINOTRANSFERASE 79 Units/L (12-78); ALBUMIN 2.7 g/dL (3.4-5.0); ALKALINE PHOSPHATASE 74 Units/L (46-116); ASPARTATE AMINO TRANSFERASE 56 Units/L (15-37); BLOOD UREA NITROGEN 19 mg/dL (7-18); CALCIUM 8.5 mg/dL (8.5-10.1); CHLORIDE 107 mmol/L (98-107); CKMB % 2.6 % (<4); COR CA(FOR HYPOALB) 9.5 mg/dL (8.5-10.1); COR NA(FOR HYPERGLY) 140 mmol/L (136-145); CREATINE KINASE 584 Units/L (39-308); CREATININE 1.37 mg/dL (0.70-1.30); SODIUM 139 mmol/L (136-145); TOTAL PROTEIN 5.9 g/dL (6.4-8.2); TROPONIN I 0.09 ng/mL (0-1.5); eGFR NON BLACK RACES 53 (>60)
[2019-12-21 07:04] LABS: CREATINE KINASE MB 15.2 ng/mL (0-4.0)
[2019-12-21] MEDS ORDERED: LEXAPRO ONE (08:46)
[2019-12-21] MEDS: FOLIC ACID TAB 1 MG PO SCH (09:18)
[2019-12-21] MEDS: CRESTOR TAB 10 MG PO SCH (09:18)
[2019-12-21] MEDS: ARICEPT TAB 10 MG PO SCH (09:18)
[2019-12-21] MEDS: SYNTHROID 100 mcg TAB PO SCH (09:18)
[2019-12-21] MEDS: TAB-A-VITE PO SCH (09:19)
[2019-12-21] MEDS: LEXAPRO PO SCH (09:19)
[2019-12-21] MEDS: LOVAZA PO SCH (09:19)
[2019-12-21] MEDS: FLOMAX PO SCH (09:19)
[2019-12-21] MEDS: ASPIRIN 81 MG CHEWTAB PO SCH (09:20)
[2019-12-21] MEDS: LEVSIN/MAALOX/LIDOC VISC PO SCH ×4 (09:20→21:54)
[2019-12-21] MEDS: PROTONIX INJ 40 MG VIAL IVP SCH ×2 (09:22→21:56)
[2019-12-21] MEDS: LOVENOX INJ 40 MG SYR SC SCH (09:23)
[2019-12-21] MEDS: PEPCID 20 MG IV PREMIX* 20 MG/50 ML BAG IV SCH ×2 (09:25→21:56)
[2019-12-21] MEDS: LEVAQUIN PREMIX IV 250 MG 250 MG/50 ML BAG IV SCH (10:56)
[2019-12-21] MEDS ORDERED: LASIX IVP ONE (11:30)
[2019-12-21] MEDS: ALBUMIN HUMAN 25%- 100 ML 100 ML IV SCH (12:49)
[2019-12-21] MEDS ORDERED: TUSSIONEX PENNKINETIC SUSP PO PRN (17:09)
[2019-12-21] MEDS ORDERED: ROBITUSSIN DM PO PRN (17:09)
[2019-12-21] MEDS ORDERED: ROBITUSSIN DM ONE (17:17)
[2019-12-21] MEDS: ROBITUSSIN DM PO SCH ×2 (17:28→21:45)
--- NOTE | 2019-12-21 19:05 | PCM.PROG ---
Progress Note - Progress Note for Day of Date of Exam: 12/21/19 - Subjective Subjective: IS BEING TREATED FOR COPD, ACUTE DEHYDRATION, CHRONIC KIDNEY DISEASE, AND RHABDOMYOLYSIS. TODAY, HE IS ALERT AND ORIENTED, LYING IN BED ON MORNING ROUNDS. HE CONTINUES WITH COMPLAINTS OF COUGH AND SHORTNESS OF BREATH. HE REPORTS THAT SYMPTOMS HAVE SLIGHTLY IMPROVED TODAY. ON EXAMINATION, HEART IS REGULAR IN RATE AND RHYTHM. BILATERAL LUNGS ARE NOTED WITH SCATTERED WHEEZING THROUGHOUT. ABDOMEN IS ROUND, SOFT, AND NON-TENDER WITH NORMAL BOWEL SOUNDS NOTED IN ALL QUADRANTS. HIS VITALS THIS MORNING ARE: 97.9-95-22-94%-126/64 LABS WERE OBTAINED. ABNORMAL LAB VALUES INCLUDE THE FOLLO WING: HGB 10.8, RBC 4.06, HGB 12.1, HCT 34.7, BUN 19, CREATININE 1.37, GLCUOSE 140, AST 56, ALT 79, CREATINE KINASE 584, CK-MG 15.2, TOTAL PROTEIN 5.9, ALBUMIN 2.7. BLOOD AND SPUTUM CULTURES PENDING. CHEST XRAY REVEALED: NO SIGNIFICANT CHANGE FROM THE PRIOR EXAMINATION. HE IS CURRENTLY RECEIVING NORMAL SALINE AT 125ML/HR, LEVAQUIN 250MG IV, DAILY, RESPIRATORY TX, PEPCID IV, PROTONIX IV, GI COCKTAIL, SUPPLEMENTAL OXYGEN, AND HOME MEDS WERE RESUMED. TODAY, WE WILL ADD ALBUMIN 25% IV DAILY AND LASIX 20MG IV X 1 DOSE. OTHERWISE, WE WILL FOLLOW UP WITH AM LABS AND CHEST XRAY AND CONTINUE TO MONITOR. - Past Medical Family Social History Past Med/Fam/Surg Hx: No changes since H&P Allergies: Allergies No Known Drug Allergies Allergy (Verified 12/17/19 19:31) - Review of Systems ROS: No change since H&P - Vital Signs and I&O's Vital Signs: Temperature 98.1 F Pulse Rate [Left] 88 Pulse Rate 85 Respiratory Rate 20 Blood Pressure [Left Arm] 158/84 Blood Pressure 136/60 O2 Sat by Pulse Oximetry 95 Intake and Output: Intake & Output 12/19/19 12/20/19 12/21/19 12/22/19 11:59 11:59 11:59 11:59 Intake Total 2600 / 2600 2540 / 2540 2960 / 2960 2225 / 2225 Balance 2600 / 2600 2540 / 2540 2960 / 2960 2225 / 2225 - Physical Exam Oriented: Normal Eyes: Normal Ear: Normal Nose: Normal Throat: Normal Respiratory: Generalized, Wheezes Cardiovascular: Normal : Normal Auscultation: Bowel Sounds: Normal Tenderness: Normal Skin: Normal Musculoskeletal: Normal Psychiatric: Normal Mood Description: Calm Affect: Normal Speech Pattern: Clear, Appropriate - Laboratory and Diagnostics Result Diagrams: 12/21/19 05:26 12/21/19 05:26 Labs: 12/18/19 00:47 Blood Blood Culture - Preliminary 12/18/19 10:15 Sputum - Expectorated Sputum Sputum Culture - Final 12/18/19 10:15 Sputum - Expectorated Sputum - Final Laboratory WBC 10.8 X10^3/uL (3.6-10.0) H 12/21/19 05:26 RBC 4.06 X10^6/uL (4.7-6.0) L 12/21/19 05:26 Hgb 12.1 g/dL (13.5-18.0) L 12/21/19 05:26 Hct 34.7 % (42.0-54.0) L 12/21/19 05:26 MCV 85.4 fL (80.0-100.0) 12/21/19 05:26 MCH 29.8 pg (27.0-34.0) 12/21/19 05:26 MCHC 34.9 g/dL (33.0-35.0) 12/21/19 05:26 RDW 13.5 % (11.6-16.5) 12/21/19 05:26 Plt Count 132 X10^3/uL (150.0-450.0) L 12/21/19 05:26 MPV 9.0 fL (7.4-11.0) 12/21/19 05:26 Neut % (Auto) 81.8 % (42.0-75.0) H 12/21/19 05:26 Lymph % (Auto) 9.9 % (21.0-51.0) L 12/21/19 05:26 [place] % (Auto) 8.3 % (0.0-13.0) 12/21/19 05:26 Eos % (Auto) 0.0 % (0.9-2.9) L 12/21/19 05:26 Baso % (Auto) 0 % (0.2-1.0) L 12/21/19 05:26 Neut # (Auto) 8.9 x10^3/uL (2.2-4.8) H 12/21/19 05:26 Lymph # (Auto) 1.1 X10^3/uL (1.3-2.9) L 12/21/19 05:26 [place] # (Auto) 0.9 x10^3/uL (0.3-0.8) H 12/21/19 05:26 Eos # (Auto) 0.0 x10^3/uL (0.0-0.2) 12/21/19 05:26 Baso # (Auto) 0.0 X10^3/uL (0.0-0.1) 12/21/19 05:26 Absolute Nucleated RBC 0.1 /100WBC 12/21/19 05:26 PT 14.6 SECONDS (11.8-14.3) 12/17/19 19:28 INR Target Range - 12/17/19 19:28 INR 1.18 (0.8-1.3) 12/17/19 19:28 APTT 35.3 SECONDS (22.9-36.5) 12/17/19 19:28 PTT Comment - 12/17/19 19:28 D-Dimer 1830 ng/mL (0-400) H* 12/17/19 19:28 Sample Site Rr 12/18/19 02:10 ABG pH 7.440 (7.35-7.45) 12/18/19 02:10 ABG pCO2 29.0 mmHg (35.0-45.0) L 12/18/19 02:10 ABG pO2 84.0 mmHg (80.0-100.0) 12/18/19 02:10 ABG HCO3 19.7 mmol/L (22-26) L 12/18/19 02:10 ABG O2 Saturation 97.0 % (90-100) 12/18/19 02:10 ABG Base Excess -3.4 mmol/L (-2.0-2.0) L 12/18/19 02:10 Tuan Test P 12/18/19 02:10 A-a Gradient 79.0 mmHg 12/18/19 02:10 FiO2 28.0 12/18/19 02:10 Blood Gas Comments Emma well 12/18/19 02:10 Sodium 139 mmol/L (136-145) 12/21/19 05:26 Corrected Sodium 140 mmol/L (136-145) 12/21/19 05:26 Potassium 4.3 mmol/L (3.5-5.1) 12/21/19 05:26 Chloride 107 mmol/L (98-107) 12/21/19 05:26 Carbon Dioxide 24.0 mmol/L (21-32) 12/21/19 05:26 BUN 19 mg/dL (7-18) H 12/21/19 05:26 Creatinine 1.37 mg/dL (0.70-1.30) H 12/21/19 05:26 Est GFR (MDRD) Af Amer > 60 (>60) 12/21/19 05:26 Est GFR (MDRD) Non-Af 53 (>60) L 12/21/19 05:26 Glucose 140 mg/dL (65-99) H 12/21/19 05:26 Calcium 8.5 mg/dL (8.5-10.1) 12/21/19 05:26 Corrected Calcium 9.5 mg/dL (8.5-10.1) 12/21/19 05:26 Magnesium 1.9 mg/dL (1.7-2.9) 12/20/19 05:29 Total Bilirubin 0.20 mg/dL (0.2-1.0) 12/21/19 05:26 AST 56 Units/L (15-37) H 12/21/19 05:26 ALT 79 Units/L (12-78) H 12/21/19 05:26 Alkaline Phosphatase 74 Units/L (46-116) 12/21/19 05:26 Creatine Kinase 584 Units/L (39-308) H 12/21/19 05:26 CK-MB (CK-2) 15.2 ng/mL (0-4.0) H* 12/21/19 05:26 CK/CKMB % Calc 2.6 % (<4) 12/21/19 05:26 Troponin I 0.09 ng/mL (0-1.5) 12/21/19 05:26 B-Natriuretic Peptide 47.4 pg/mL (0-79) 12/17/19 19:28 Total Protein 5.9 g/dL (6.4-8.2) L 12/21/19 05:26 Albumin 2.7 g/dL (3.4-5.0) L 12/21/19 05:26 Globulin 3.2 g/dL (2.5-4.5) 12/21/19 05:26 Albumin/Globulin Ratio 0.8 Ratio (1.1-2.1) L 12/21/19 05:26 Influenza Type A (PCR) Negative (NEGATIVE) 12/17/19 19:38 Influenza Type B (PCR) Negative (NEGATIVE) 12/17/19 19:38 - Plan (1) COPD (chronic obstructive pulmonary disease) with acute bronchitis Status: Acute Plan: LEVAQUIN 250MG IV DAILY, RESPIRATORY TX, SUPPLEMENTAL OXYGEN, CONTINUE TO MONITOR (2) Acute dehydration Status: Acute Plan: NS AT 125ML/HR, CONTINUE TO MONITOR (3) Chronic kidney disease (CKD) Status: Acute Qualifiers: Chronic kidney disease stage: stage 3 (moderate) Qualified Code(s): N18.3 - Chronic kidney disease, stage 3 (moderate) (4) Rhabdomyolysis Status: Acute Qualifiers: Rhabdomyolysis type: non-traumatic Qualified Code(s): M62.82 - Rhabdomyolysis Plan: NS AT 125ML/HR, CONTINUE TO MONITOR
[2019-12-21] MEDS: NIASPAN ER TAB 500 MG PO SCH (21:56)
[2019-12-22] MEDS: NS 1000 ML 1,000 ML IV SCH ×2 (01:03→08:55)
[2019-12-22] MEDS: ROBITUSSIN DM PO SCH ×5 (01:03→12:57)
[2019-12-22] MEDS: DUONEB 0.5 MG/3 MG (3 mL) NEB SCH ×3 (01:10→09:25)
--- NOTE | 2019-12-22 06:24 | RAD ---
HISTORYShortness of breathSTUDYCHEST, 1 VIEWCOMPARISONFebruary 2019FINDINGSThe heart is upper limits normal in size. No congestive heart failure is noted. No acute alveolar infiltrates or pleural effusions are identified. No significant change is noted in the nodular parenchymal opacities being followed in the right upper lobe. No pleural effusions are identified. Bony thorax is unremarkable.IMPRESSIONNo significant change from the prior examinationElectronically signed by: JORDAN CALLAHAN (Dec 22, 2019 06:22:48)
[2019-12-22 06:45] LABS: BASOPHILS % (AUTO) 0.1 % (0.2-1.0); EOSINOPHILS % (AUTO) 0.4 % (0.9-2.9); HEMATOCRIT 34.2 % (42.0-54.0); HEMOGLOBIN 11.7 g/dL (13.5-18.0); LYMPHOCYTES # (AUTO) 2.1 X10^3/uL (1.3-2.9); LYMPHOCYTES % (AUTO) 26.4 % (21.0-51.0); MEAN CORPUSCULAR HEMOGLOBIN 29.3 pg (27.0-34.0); MEAN CORPUSCULAR HGB CONC 34.2 g/dL (33.0-35.0); MEAN CORPUSCULAR VOLUME 85.8 fL (80.0-100.0); MONOCYTES % (AUTO) 12.2 % (0.0-13.0); NEUTROPHILS # (AUTO) 4.8 x10^3/uL (2.2-4.8); NEUTROPHILS % (AUTO) 60.9 % (42.0-75.0); PLATELET COUNT 134 X10^3/uL (150.0-450.0); RED BLOOD COUNT 3.98 X10^6/uL (4.7-6.0); RED CELL DISTRIBUTION WIDTH 13.3 % (11.6-16.5); WHITE BLOOD COUNT 7.9 X10^3/uL (3.6-10.0)
[2019-12-22 06:46] LABS: ALANINE AMINOTRANSFERASE 106 Units/L (12-78); ALBUMIN 2.9 g/dL (3.4-5.0); ALKALINE PHOSPHATASE 68 Units/L (46-116); ASPARTATE AMINO TRANSFERASE 81 Units/L (15-37); BLOOD UREA NITROGEN 23 mg/dL (7-18); CALCIUM 8.4 mg/dL (8.5-10.1); CARBON DIOXIDE 28.9 mmol/L (21-32); CHLORIDE 105 mmol/L (98-107); COR CA(FOR HYPOALB) 9.3 mg/dL (8.5-10.1); CREATININE 1.46 mg/dL (0.70-1.30); SODIUM 139 mmol/L (136-145); TOTAL PROTEIN 5.8 g/dL (6.4-8.2); eGFR NON BLACK RACES 49 (>60)
[2019-12-22] MEDS ORDERED: LEXAPRO ONE (08:26)
[2019-12-22] MEDS: ALBUMIN HUMAN 25%- 100 ML 100 ML IV SCH (08:40)
[2019-12-22] MEDS: LEVAQUIN PREMIX IV 250 MG 250 MG/50 ML BAG IV SCH (08:41)
[2019-12-22] MEDS: TAB-A-VITE PO SCH (08:43)
[2019-12-22] MEDS: LOVAZA PO SCH (08:43)
[2019-12-22] MEDS: SYNTHROID 100 mcg TAB PO SCH (08:43)
[2019-12-22] MEDS: CRESTOR TAB 10 MG PO SCH (08:43)
[2019-12-22] MEDS: FLOMAX PO SCH (08:43)
[2019-12-22] MEDS: ARICEPT TAB 10 MG PO SCH (08:43)
[2019-12-22] MEDS: ASPIRIN 81 MG CHEWTAB PO SCH (08:43)
[2019-12-22] MEDS: FOLIC ACID TAB 1 MG PO SCH (08:43)
[2019-12-22] MEDS: PROTONIX INJ 40 MG VIAL IVP SCH (08:43)
[2019-12-22] MEDS: LEVSIN/MAALOX/LIDOC VISC PO SCH ×2 (08:44→12:56)
[2019-12-22] MEDS: LEXAPRO PO SCH (08:44)
[2019-12-22] MEDS: LOVENOX INJ 40 MG SYR SC SCH (08:46)
[2019-12-22] MEDS ORDERED: PEPCID 20 MG IV PREMIX* 20 MG/50 ML BAG IV SCH (09:00)
[2019-12-22 12:52] VITALS: BP 134/63
== END 2019-12-22 13:40 | disposition home or self-care (01) | DRG 191 ==
LOC: ER 18:56 → MED/SURG 12-18 00:23
PROVIDERS: ADMIT Internal Medicine; ATTEND Internal Medicine
DX: J44.0 Chronic obstructive pulmonary disease with (acute) lower respiratory infection; N18.3 Chronic kidney disease, stage 3 (moderate); J20.9 Acute bronchitis, unspecified; J44.1 Chronic obstructive pulmonary disease with (acute) exacerbation; R26.89 Other abnormalities of gait and mobility; E86.0 Dehydration; Z99.81 Dependence on supplemental oxygen; M62.82 Rhabdomyolysis
CPT/HCPCS: 36415; 36600; 71010; 71020; 71045; 71046; 80048; 80053; 82550; 82553; 82803; 83735; 83880; 84484; 85025; 85378; 85610; 85730; 87040; 87070; 87205; 87502; 93005; 94640; 94760; 96365; 96367; 96374; 97110; 97116; 97162; 97166; 99284; A4216; A4222; C9113; J1650; J1940; J1956; J2920; J2930; J3490; J7030; J7050; J7620; P9047; S0028

== ENCOUNTER 2023-11-12 14:54 | Observation (INO) ==
[2023-11-12] MEDS ORDERED: FORTAZ or TAZICEF VIAL INJ 1 G in NS 100 ML IV 100 ML IV SCH (17:38)
[2023-11-12] MEDS ORDERED: PULMICORT NEB TX 0.5 MG NEB SCH (17:45)
[2023-11-12] MEDS ORDERED: LEVAQUIN PREMIX IV 500 MG 500 MG/100 ML BAG IV SCH (18:00)
[2023-11-12] MEDS ORDERED: DUONEB 0.5 MG/3 MG (3 mL) NEB SCH (18:00)
[2023-11-12 18:01] VITALS: BMI 25.2
[2023-11-12 18:21] LABS: HEMOGLOBIN 14.3 g/dL (13.5-18.0); MEAN CORPUSCULAR HEMOGLOBIN 28.5 pg (27.0-34.0); RED CELL DISTRIBUTION WIDTH 14.2 % (11.6-16.5)
[2023-11-12 18:24] LABS: BASOPHILS # (AUTO) 0.1 X10^3/uL (0.0-0.1); BASOPHILS % (AUTO) 1.1 % (0.2-1.0); EOSINOPHILS % (AUTO) 0.6 % (0.9-2.9); HEMATOCRIT 42.4 % (42.0-54.0); LYMPHOCYTES # (AUTO) 1.4 X10^3/uL (1.3-2.9); LYMPHOCYTES % (AUTO) 27.8 % (21.0-51.0); MEAN CORPUSCULAR HGB CONC 33.8 g/dL (33.0-35.0); MEAN CORPUSCULAR VOLUME 84.2 fL (80.0-100.0); MEAN PLATELET VOLUME 8.4 fL (7.4-11.0); MONOCYTES # (AUTO) 1.2 x10^3/uL (0.3-0.8); MONOCYTES % (AUTO) 22.9 % (0.0-13.0); NEUTROPHILS # (AUTO) 2.5 x10^3/uL (2.2-4.8); NEUTROPHILS % (AUTO) 47.6 % (42.0-75.0); PLATELET COUNT 168 X10^3/uL (150.0-450.0); RED BLOOD COUNT 5.04 X10^6/uL (4.7-6.0); WHITE BLOOD COUNT 5.2 X10^3/uL (3.6-10.0)
[2023-11-12 18:30] LABS: ALANINE AMINOTRANSFERASE 64 Units/L (12-78); ALBUMIN 3.6 g/dL (3.4-5.0); ALKALINE PHOSPHATASE 108 Units/L (46-116); ASPARTATE AMINO TRANSFERASE 47 Units/L (15-37); BLOOD UREA NITROGEN 19 mg/dL (7-18); CALCIUM 9.5 mg/dL (8.5-10.1); CARBON DIOXIDE 24.5 mmol/L (21-32); CHLORIDE 99 mmol/L (98-107); GLUCOSE 86 mg/dL (65-99); SODIUM 132 mmol/L (136-145); eGFR NON BLACK RACES 41 (>60)
[2023-11-12] MEDS ORDERED: NS 1/2 1,000 ML IV 1,000 ML IV ONE (18:36)
[2023-11-12] MEDS: ROBITUSSIN DM PO SCH ×2 (18:45→20:34)
[2023-11-12] MEDS: VSL#3 PO SCH (18:45)
[2023-11-12] MEDS: NS 1/2 1,000 ML IV 1,000 ML IV SCH (18:45)
[2023-11-12 19:02] LABS: BASOPHILS % (MANUAL) 1 % (0-1); PLATELET MORPHOLOGY COMMENT NORMAL (NORMAL)
[2023-11-12] MEDS ORDERED: DUONEB 0.5 MG/3 MG (3 mL) NEB ONE (19:53)
[2023-11-12] MEDS ORDERED: PULMICORT NEB TX 0.5 MG NEB ONE (19:53)
[2023-11-12] MEDS ORDERED: FORTAZ or TAZICEF VIAL INJ IVP SCH (20:00)
[2023-11-12] MEDS: DUONEB 0.5 MG/3 MG (3 mL) NEB SCH (20:28)
[2023-11-12] MEDS: PULMICORT NEB TX 0.5 MG NEB SCH (20:28)
[2023-11-12] MEDS: LEVAQUIN PREMIX IV 750 MG 750 MG/150 ML BAG IV SCH (20:35)
[2023-11-12] MEDS ORDERED: TYLENOL 325 MG TAB PO PRN (20:46)
[2023-11-13] MEDS ORDERED: NS 1/2 1,000 ML IV 1,000 ML IV ONE ×2 (02:43→19:05)
[2023-11-13] MEDS: NS 1/2 1,000 ML IV 1,000 ML IV SCH ×3 (04:37→19:15)
[2023-11-13 06:40] LABS: BASOPHILS % (AUTO) 0.6 % (0.2-1.0); EOSINOPHILS # (AUTO) 0.1 x10^3/uL (0.0-0.2); EOSINOPHILS % (AUTO) 1.1 % (0.9-2.9); HEMATOCRIT 37.2 % (42.0-54.0); HEMOGLOBIN 12.4 g/dL (13.5-18.0); LYMPHOCYTES % (AUTO) 37.2 % (21.0-51.0); MEAN CORPUSCULAR HEMOGLOBIN 28.1 pg (27.0-34.0); MEAN CORPUSCULAR HGB CONC 33.3 g/dL (33.0-35.0); MEAN CORPUSCULAR VOLUME 84.3 fL (80.0-100.0); MEAN PLATELET VOLUME 8.8 fL (7.4-11.0); MONOCYTES # (AUTO) 1.5 x10^3/uL (0.3-0.8); MONOCYTES % (AUTO) 27.4 % (0.0-13.0); NEUTROPHILS # (AUTO) 1.8 x10^3/uL (2.2-4.8); NEUTROPHILS % (AUTO) 33.7 % (42.0-75.0); PLATELET COUNT 151 X10^3/uL (150.0-450.0); RED BLOOD COUNT 4.41 X10^6/uL (4.7-6.0); RED CELL DISTRIBUTION WIDTH 14.2 % (11.6-16.5); WHITE BLOOD COUNT 5.3 X10^3/uL (3.6-10.0)
[2023-11-13 06:42] LABS: ALANINE AMINOTRANSFERASE 61 Units/L (12-78); ALBUMIN 2.6 g/dL (3.4-5.0); ALKALINE PHOSPHATASE 86 Units/L (46-116); ASPARTATE AMINO TRANSFERASE 46 Units/L (15-37); BLOOD UREA NITROGEN 21 mg/dL (7-18); CALCIUM 8.4 mg/dL (8.5-10.1); CARBON DIOXIDE 22.7 mmol/L (21-32); CHLORIDE 102 mmol/L (98-107); COR CA(FOR HYPOALB) 9.5 mg/dL (8.5-10.1); GLUCOSE 89 mg/dL (65-99); POTASSIUM 4.1 mmol/L (3.5-5.1); SODIUM 133 mmol/L (136-145); TOTAL PROTEIN 6.4 g/dL (6.4-8.2); eGFR NON BLACK RACES 41 (>60)
[2023-11-13 07:14] LABS: BAND NEUTROPHILS % 0 % (0-10); BASOPHILS % (MANUAL) 0 % (0-1); PLATELET MORPHOLOGY COMMENT NORMAL (NORMAL); STOMATOCYTES SLIGHT
[2023-11-13] MEDS: PULMICORT NEB TX 0.5 MG NEB SCH ×2 (08:36→20:34)
[2023-11-13] MEDS: DUONEB 0.5 MG/3 MG (3 mL) NEB SCH ×4 (08:36→20:33)
[2023-11-13] MEDS: LOVENOX INJ 40 MG SYR SC SCH (09:20)
[2023-11-13] MEDS: ROBITUSSIN DM PO SCH ×4 (09:20→20:45)
[2023-11-13] MEDS: FORTAZ or TAZICEF VIAL INJ 2 G in NS 100 ML IV 100 ML IV SCH ×2 (09:20→20:44)
[2023-11-13] MEDS: VSL#3 PO SCH (09:21)
--- NOTE | 2023-11-13 11:20 | EKG ---
Test Reason : SOB, CHEST PAIN Blood Pressure : */* mmHG Vent. Rate : 78 BPM Atrial Rate : 78 BPM P-R Int : 138 ms QRS Dur : 58 ms QT Int : 362 ms P-R-T Axes : 102 16 89 degrees QTc Int : 412 ms Normal sinus rhythm Abnormal ECG No previous ECGs available Confirmed by Kwesi Feliciano MD ([id number]) on 11/14/2023 2:09:08 PM Referred By: Confirmed By: Kwesi Feliciano MD
--- NOTE | 2023-11-13 12:09 | DR.UPDATE ---
H&P Update Prescription drug monitoring program results: PDMP reviewed and no concerns identified H&P Reviewed: Yes Any changes to H&P?: Yes Changes noted:: WAS ADMITTED TO THE HOSPITAL FOR TREATMENT OF PNEUMONIA, FAILED OUTPATIENT TREATMENT. PATIENT HAS TAKEN LEVAQUIN 500MG DAILY, MEDROL DOSEPACK, AND NEBULIZER TREATMENTS. HE DENIES IMPROVEMENT IN COUGH AND SHORTNESS OF BREATH DESPITE COMPLIANCE WITH MEDICATIONS. HE IS CURRENTLY IN PULMONARY REHAB. ADDITIONALLY, HE REPORTS FALLING OFF OF THE PORCH ABOUT A MONTH AGO AND HITTING HIS CHEST ON THE GROUND. HE HAS HAD INCREASED PAIN, SHORTNESS OF BREATH, AND WEAKNESS SINCE THEN. HIS PMH INCLUDES: HYPERLIPIDEMIA, CATARACTS, HYPERLIPIDEMIA, COPD, GERD, HYPOTHYROIDISM, BACK SURGERY, AND KIDNEY REMOVED. ON ADMISSION, HIS VITALS WERE: 97.9-77-20-96%-151/65. LABS WERE OBTAINED. WBC 5.2, RBC 5.04, HGB 14.3, HCT 42.4, PLT COUNT 168, SODIUM 132, POTASSIUM 4.0, CHLORIDE 99, CARBON DIOXIDE 24.5, BUN 19, CREATININE 1.70, GLUCOSE 86, CALCIUM 9.5, TOTAL BILI 0.50, AST 47, ALT 64, ALK PHOS 108, TOTAL PROTEIN 8.0, ALBUMIN 36. A RESPIRATORY VIRAL PANEL WAS SENT OFF. BLOOD CULTURES WERE SET UP. AN EKG WAS OBTAINED AND REVEALED: NORMAL SINUS RHYTHM WITH HR 78 BPM. A CHEST XRAY WAS OBTAINED AND A READING IS PENDING. HE WAS STARTED ON NORMAL SALINE AT 75 ML/HR, LEVAQUIN 75 MG IV Q48H, FORTAZ 2G IV Q12H, DUONEBS QID, PULMICORT NEBS BID, TUSSIONEX 5ML Q12H PRN, ROBITUSSIN DM 10ML QID, LOVENOX 40MG SC DAILY, TYLENOL 650MG Q6H PRN, PROBIOTICS DAILY. WE WILL RESUME HIS HOME MEDICATIONS OF ZOCOR, NAMENDA, ESCITALOPRAM, DONEPEZIL, LEVOTHYROXINE, MONTELUKAST, AND TAMSULOSIN. WE WILL OBTAIN A BRAIN CT WITHOUT CONTRAST DUE TO INCREASED WEAKNESS AND CONFUSION. WE WILL ALSO OBTAIN A CHEST CT WITHOUT CONTRAST. OTHERWISE, WE WILL FOLLOW-UP WITH AM LABS AND CHEST XRAY AND CONTINUE TO MONITOR. TIME SPENT ON CLINICAL ASSESSMENT, REVIEWING LABS AND IMAGING, DECISION MAKING, AND DOCUMENTATION GREATER THAN 75 MINUTES. Patient was examined?: Yes Vital Signs: Temp Pulse Pulse Resp BP BP Pulse Ox 11/13/23 07:00 11/13/23 08:36 96 11/13/23 08:36 11/13/23 08:00 97.8 F 76 20 126/71 96 11/13/23 03:47 98.5 F 75 18 133/62 93 L 11/12/23 23:53 98.8 F 80 20 119/57 93 L 11/12/23 19:00 11/12/23 20:29 63 110/59 97 11/12/23 20:28 63 97 11/12/23 20:27 11/12/23 20:00 98.4 F 80 18 110/55 96 11/12/23 18:02 11/12/23 17:42 11/12/23 17:00 97.9 F 77 20 151/65 96 O2 Del Method 11/13/23 07:00 Room Air 11/13/23 08:36 11/13/23 08:36 Room Air 11/13/23 08:00 Room Air 11/13/23 03:47 Room Air 11/12/23 23:53 Room Air 11/12/23 19:00 Room Air 11/12/23 20:29 Room Air 11/12/23 20:28 11/12/23 20:27 Room Air 11/12/23 20:00 Room Air 11/12/23 18:02 Room Air 11/12/23 17:42 Room Air 11/12/23 17:00 Room Air
--- NOTE | 2023-11-13 13:16 | CT ---
EXAM:BRAIN W/O CONHISTORY:WEAKNESS, AMS;COMPARISON:No relevant prior studies were available for comparison at the time of interpretation..TECHNIQUE:CT images were obtained. Multiplanar reconstructions were created on a separate workstation and used during interpretation. All CT scans at this facility is dose modulation, iterative reconstruction, and/or weight-based dosing as appropriate to reduce radiation to levels as low as reasonably achievable (ALARA). Postprocessing details, radiation dose, and contrast dose (if applicable) are recorded in the patient's medical record.FINDINGS:Acute findings: There is no intracranial hemorrhage. No mass effect. No intra-axial or extra-axial fluid collection. There is no mass. No tentorial, uncal, or tonsillar herniation.Brain volume and white matter: There is diffuse cortical atrophy. There is hypoattenuation in the supratentorial white matter consistent with chronic microvascular ischemic disease.Ventricles: No hydrocephalusMidline structures: Pituitary gland and corpus callosum are normal.Posterior fossa and skull base: Cerebellum and posterior fossa are within normal limits. Basal cisterns are not effaced.Sinuses and mastoids: Paranasal sinuses and mastoid air cells are predominantly clear.Globes and Orbits: Bilateral lens implants. Globes are intact. Bony orbits are intact. Extraocular muscles and retrobulbar fat appear normal.Skull and soft tissues: No depressed skull fracture. Calvarium appears intact. No scalp injury is identified.IMPRESSION:1. No acute intracranial abnormalityTHIS IS AN ELECTRONICALLY VERIFIED FINAL REPORT11/13/2023 1:04 PM - Electronically signed by Cisco Candelaria MD
[2023-11-13] MEDS ORDERED: LEXAPRO ONE (13:33)
[2023-11-13] MEDS: FLOMAX PO SCH (13:53)
[2023-11-13] MEDS: SYNTHROID 100 mcg TAB PO SCH (13:54)
[2023-11-13] MEDS: ARICEPT TAB 10 MG PO SCH (13:54)
[2023-11-13] MEDS: LEXAPRO PO SCH (13:54)
[2023-11-13] MEDS: NAMENDA TAB 10 MG PO SCH (13:54)
[2023-11-13] MEDS: SINGULAIR TAB 10 MG PO SCH (20:45)
--- NOTE | 2023-11-13 22:32 | RAD ---
EXAM: CHEST X-RAYHISTORY: Shortness of breath. History of skin cancer.TECHNIQUE: Frontal chest x-ray dated November 13, 2023 at 4:51 AM.COMPARISON: CXR dated May 12, 2024FINDINGS:The heart size and mediastinum are within normal limits. There is an approximately 4.9 cm CC by 4.9 cm transverse right suprahilar soft tissue density suspicious for a mass or neoplasm; DDx includes focal consolidative pneumonia in the appropriate clinical setting. Clinical correlation is advised. The left lung landers and costophrenic angles are clear. There is no acute parenchymal infiltrate, pleural effusion, or pneumothorax seen. The visualized bony structures are within normal limits.IMPRESSION:1. Approximately 4.9 cm CC by 4.9 cm transverse stable right suprahilar soft tissue density suspicious for a mass or neoplasm; DDx includes focal consolidative pneumonia in the appropriate clinical setting. Clinical correlation is advised.2. Correlation with CT may be beneficial for further characterization.THIS IS AN ELECTRONICALLY VERIFIED FINAL REPORT11/13/2023 10:29 PM - Electronically signed by Mitali Sr
--- NOTE | 2023-11-13 22:41 | RAD ---
EXAM: CHEST X-RAYHISTORY: Pneumonia. Cough.TECHNIQUE: AP CXR dated November 12, 2023.COMPARISON: CXR dated July 13, 2022FINDINGS:The heart size and mediastinum are within normal limits. There is interval increase in size of right suprahilar medial upper lung field consolidation, (measuring approximately 6.4 cm CC by 5 cm transverse; previously approximately 2.4 cm CC x 3.2 cm); DDx includes neoplastic lesion; cannot rule out focal pneumonia in the appropriate clinical setting. Correlation with CT may be beneficial for further characterization.The lung landers and costophrenic angles are clear. There is no acute parenchymal infiltrate, pleural effusion, or pneumothorax seen. The visualized bony structures are within normal limits.IMPRESSION:1. Interval increase in size of right suprahilar medial upper lung field consolidation, (measuring approximately 6.4 cm CC by 5 cm transverse; previously approximately 2.4 cm CC x 3.2 cm); DDx includes neoplastic lesion; cannot rule out focal pneumonia in the appropriate clinical setting. Correlation with CT may be beneficial for further characterization.2. Otherwise, no significant interval change from the previous exam.THIS IS AN ELECTRONICALLY VERIFIED FINAL REPORT11/13/2023 10:37 PM - Electronically signed by Mitali Sr
[2023-11-14] MEDS: NS 1/2 1,000 ML IV 1,000 ML IV SCH ×4 (00:10→21:21)
--- NOTE | 2023-11-14 00:58 | CT ---
EXAM:CHEST W/O CONHISTORY:PERSISTANT COUGH;COMPARISON:Chest radiograph from November 13, [address] chest without contrast from May 30, 2022TECHNIQUE:Axial non-contrast images of the chest with coronal and sagittal reformats.Radiation dose: 199.76 mGy-cm total DLPFINDINGS:Trace pericardial effusion.Aorta and pulmonary arteries are normal in caliber.Coronary artery calcifications.Bilateral hilar and mediastinal calcified lymph nodes with calcified nodules in the right lung; consistent with sequela of a previous granulomatous infection.Central airways are widely patent.Esophagus appears normal.Imaged portion of the upper abdomen is unremarkable given the lack of administration intravenous contrast.No effusion, acute focal infiltrate or pneumothorax.No acute osseous abnormality.IMPRESSION:1. No acute intrathoracic abnormality identified.2. Sequela of a previous granulomatous infection. No significant changes when compared to the exam from May 30, 2022.THIS IS AN ELECTRONICALLY VERIFIED FINAL REPORT11/14/2023 12:55 AM - Electronically signed by Jorge Dean MD
[2023-11-14 06:27] LABS: BASOPHILS % (AUTO) 0.4 % (0.2-1.0); EOSINOPHILS # (AUTO) 0.1 x10^3/uL (0.0-0.2); EOSINOPHILS % (AUTO) 2.2 % (0.9-2.9); HEMATOCRIT 36.8 % (42.0-54.0); HEMOGLOBIN 12.2 g/dL (13.5-18.0); LYMPHOCYTES % (AUTO) 44.9 % (21.0-51.0); MEAN CORPUSCULAR HEMOGLOBIN 28.2 pg (27.0-34.0); MEAN CORPUSCULAR HGB CONC 33.3 g/dL (33.0-35.0); MEAN CORPUSCULAR VOLUME 84.7 fL (80.0-100.0); MEAN PLATELET VOLUME 8.3 fL (7.4-11.0); MONOCYTES # (AUTO) 0.8 x10^3/uL (0.3-0.8); MONOCYTES % (AUTO) 18.4 % (0.0-13.0); NEUTROPHILS # (AUTO) 1.5 x10^3/uL (2.2-4.8); NEUTROPHILS % (AUTO) 34.1 % (42.0-75.0); PLATELET COUNT 139 X10^3/uL (150.0-450.0); RED BLOOD COUNT 4.35 X10^6/uL (4.7-6.0); RED CELL DISTRIBUTION WIDTH 14.4 % (11.6-16.5); WHITE BLOOD COUNT 4.5 X10^3/uL (3.6-10.0)
[2023-11-14] MEDS ORDERED: NS 1/2 1,000 ML IV 1,000 ML IV ONE ×2 (06:36→21:14)
[2023-11-14 06:49] LABS: ALANINE AMINOTRANSFERASE 59 Units/L (12-78); ALBUMIN 2.5 g/dL (3.4-5.0); ALKALINE PHOSPHATASE 87 Units/L (46-116); ASPARTATE AMINO TRANSFERASE 40 Units/L (15-37); BLOOD UREA NITROGEN 20 mg/dL (7-18); CALCIUM 8.7 mg/dL (8.5-10.1); CARBON DIOXIDE 21.6 mmol/L (21-32); CHLORIDE 105 mmol/L (98-107); COR CA(FOR HYPOALB) 9.9 mg/dL (8.5-10.1); CREATININE 1.69 mg/dL (0.70-1.30); GLUCOSE 94 mg/dL (65-99); SODIUM 136 mmol/L (136-145); TOTAL PROTEIN 6.2 g/dL (6.4-8.2); eGFR NON BLACK RACES 41 (>60)
[2023-11-14 06:50] LABS: POTASSIUM 4.2 mmol/L (3.5-5.1)
--- NOTE | 2023-11-14 06:52 | RAD ---
EXAM:AP chestHISTORY:Short of breath COPDCOMPARISON:11/13/2023FINDINGS:Heart size normal with clear left lung. Indistinct parenchymal density in noted right upper lobe with no definite hilar enlargement or pleural fluid.IMPRESSION:No change. The right upper lobe density has been recently evaluated with CT, findings suggest chronic postinflammatory scarring.THIS IS AN ELECTRONICALLY VERIFIED FINAL REPORT11/14/2023 6:49 AM - Electronically signed by eLonid Gutierrez MD
[2023-11-14] MEDS ORDERED: LEXAPRO ONE (08:21)
[2023-11-14] MEDS: PULMICORT NEB TX 0.5 MG NEB SCH ×2 (08:41→21:07)
[2023-11-14] MEDS: DUONEB 0.5 MG/3 MG (3 mL) NEB SCH ×4 (08:41→21:07)
[2023-11-14] MEDS: ARICEPT TAB 10 MG PO SCH (09:32)
[2023-11-14] MEDS: LOVENOX INJ 40 MG SYR SC SCH (09:33)
[2023-11-14] MEDS: LEXAPRO PO SCH (09:33)
[2023-11-14] MEDS: FLOMAX PO SCH (09:33)
[2023-11-14] MEDS: FORTAZ or TAZICEF VIAL INJ 2 G in NS 100 ML IV 100 ML IV SCH ×2 (09:33→21:17)
[2023-11-14] MEDS: SYNTHROID 100 mcg TAB PO SCH (09:34)
[2023-11-14] MEDS: ROBITUSSIN DM PO SCH ×4 (09:34→21:17)
[2023-11-14] MEDS: NAMENDA TAB 10 MG PO SCH (09:34)
[2023-11-14] MEDS: VSL#3 PO SCH (09:34)
[2023-11-14] MEDS: SINGULAIR TAB 10 MG PO SCH (21:17)
[2023-11-14] MEDS: LEVAQUIN PREMIX IV 750 MG 750 MG/150 ML BAG IV SCH (22:03)
--- NOTE | 2023-11-15 00:17 | PCM.PROG ---
Progress Note - Progress Note for Day of Date of Exam: 11/14/23 - Subjective Subjective: IS CURRENTLY OBSERVATION STATUS FOR TREATMENT OF PNEUMONIA, FAILED OUTPATIENT TREATMENT AND GENERALIZED WEAKNESS. HIS PMH INCLUDES: HYPERLIPIDEMIA, CATARACTS, HYPERLIPIDEMIA, COPD, GERD, HYPOTHYROIDISM, BACK SURGERY, AND KIDNEY REMOVED. TODAY, HE IS ALERT AND ORIENTED, LYING IN BED ON MORNING ROUNDS. HE CONTINUES WITH COMPLAINTS OF AN INTERMITTENT COUGH AND SHORTNESS OF BREATH AT TIMES. HE DOES ADMIT TO SLIGHT IMPROVEMENT IN SYMPTOMS TODAY. ON EXAMINATION, HEART IS REGULAR IN RATE AND RHYTHM. BILATERAL LUNGS ARE NOTED WITH DIMINISHED LUNG SOUNDS THROUGHOUT. ABDOMEN IS ROUND, SOFT, AND NON- TENDER WITH NORMAL BOWEL SOUNDS NOTED IN ALL QUADRANTS. GOOD RANGES OF MOTION NOTED TO UPPER AND LOWER EXTREMITIES WITH NO EDEMA NOTED. HIS VITALS THIS MORNING ARE: 98.1-69-20-98%-151/60. LABS WERE OBTAINED. WBC 4.5, RBC 435, HCT 12.2, HCT 36.8, PLT COUNT 139, SODIUM 136, POTASSIUM 4.2, CHLORIDE 105, BUN 20, CREATININE 1.69, GLUCOSE 94, CALCIUM 8.7, AST 40, ALT 59, ALK PHOS 87, TOTAL P ROTEIN 6.2, ALBUMIN 2.5. BLOOD AND SPUTUM CULTURES ARE PENDING. A CHEST CT WITHOUT CONTRAST WAS OBTAINED AND REVEALED: 1. No acute intrathoracic abnormality identified. 2. Sequela of a previous granulomatous infection. No significant changes when compared to the exam from May 30, 2022. A CHEST XRAY WAS OBTAINED AND REVEALED: No change. The right upper lobe density has been recently evaluated with CT, findings suggest chronic postinflammatory scarring. A BRAIN CT WAS OBTAINED AND REVEALED: 1. No acute intracranial abnormality. HE IS CURRENTLY RECEIVING NORMAL SALINE AT 75 ML/HR, LEVAQUIN 75 MG IV Q48H, FORTAZ 2G IV Q12H, DUONEBS QID, PULMICORT NEBS BID, TUSSIONEX 5ML Q12H PRN, ROBITUSSIN DM 10ML QID, LOVENOX 40MG SC DAILY, TYLENOL 650MG Q6H PRN, PROBIOTICS DAILY. WE RESUMED HIS HOME MEDICATIONS OF ZOCOR, NAMENDA, ESCITALOPRAM, DONEPEZIL, LEVOTHYROXINE, MONTELUKAST, AND TAMSULOSIN. WE WILL CONTINUE WITH CURRENT PLAN OF CARE TODAY. OTHERWISE, WE WILL FOLLOW-UP WITH AM LABS AND CHEST XRAY AND CONTINUE TO MONITOR. TIME SPENT ON CLINICAL ASSESSMENT, REVIEWING LABS AND IMAGING, DECISION MAKING, AND DOCUMENTATION GREATER THAN 45 MINUTES. - Past Medical Family Social History Past Med/Fam/Surg Hx: No changes since H&P Allergies: Allergies No Known Drug Allergies Allergy (Verified 12/17/19 19:31) - Review of Systems ROS: No change since H&P - Vital Signs and I&O's Vital Signs: Vital Signs Temperature 97.7 F Pulse Rate [Left Brachial] 75 Pulse Rate 65 Respiratory Rate 18 Blood Pressure [Left Arm] 142/63 O2 Sat by Pulse Oximetry 98 O2 Sat by Pulse Oximetry 98 Intake and Output: Intake & Output 11/12/23 11/13/23 11/14/23 11/15/23 11:59 11:59 11:59 11:59 Intake Total 1463 / 1463 2991 / 2991 2539 / 2539 Balance 1463 / 1463 2991 / 2991 2539 / 2539 - Physical Exam Oriented: Normal Eyes: Normal Ear: Normal Nose: Normal Throat: Normal Respiratory: Diminished Cardiovascular: Normal : Normal Auscultation: Bowel Sounds: Normal Palpation: Normal Tenderness: Normal Skin: Normal Musculoskeletal: Normal Psychiatric: Normal Mood Description: Calm Affect: Normal Speech Pattern: Clear, Appropriate - Laboratory and Diagnostics Result Diagrams: 11/14/23 05:57 11/14/23 05:57 Labs: 11/14/23 15:27 Sputum - Expectorated Sputum - Final 11/12/23 18:09 Blood Blood Culture - Preliminary 11/12/23 18:00 Blood Blood Culture - Preliminary Laboratory WBC 4.5 X10^3/uL (3.6-10.0) 11/14/23 05:57 RBC 4.35 X10^6/uL (4.7-6.0) L 11/14/23 05:57 Hgb 12.2 g/dL (13.5-18.0) L 11/14/23 05:57 Hct 36.8 % (42.0-54.0) L 11/14/23 05:57 MCV 84.7 fL (80.0-100.0) 11/14/23 05:57 MCH 28.2 pg (27.0-34.0) 11/14/23 05:57 MCHC 33.3 g/dL (33.0-35.0) 11/14/23 05:57 RDW 14.4 % (11.6-16.5) 11/14/23 05:57 Plt Count 139 X10^3/uL (150.0-450.0) L 11/14/23 05:57 Plt Count Comment Adequate (ADEQUATE) 11/13/23 05:50 MPV 8.3 fL (7.4-11.0) 11/14/23 05:57 Neut % (Auto) 34.1 % (42.0-75.0) L 11/14/23 05:57 Lymph % (Auto) 44.9 % (21.0-51.0) 11/14/23 05:57 [place] % (Auto) 18.4 % (0.0-13.0) H 11/14/23 05:57 Eos % (Auto) 2.2 % (0.9-2.9) 11/14/23 05:57 Baso % (Auto) 0.4 % (0.2-1.0) 11/14/23 05:57 Neut # (Auto) 1.5 x10^3/uL (2.2-4.8) L 11/14/23 05:57 Lymph # (Auto) 2.0 X10^3/uL (1.3-2.9) 11/14/23 05:57 [place] # (Auto) 0.8 x10^3/uL (0.3-0.8) 11/14/23 05:57 Eos # (Auto) 0.1 x10^3/uL (0.0-0.2) 11/14/23 05:57 Baso # (Auto) 0.0 X10^3/uL (0.0-0.1) 11/14/23 05:57 Absolute Nucleated RBC 0.0 /100WBC 11/14/23 05:57 Total Counted 100 11/13/23 05:50 Neutrophils % (Manual) 35 % (39-76) L 11/13/23 05:50 Band Neutrophils % 0 % (0-10) 11/13/23 05:50 Lymphocytes % (Manual) 42 % (13-43) 11/13/23 05:50 Monocytes % (Manual) 23 % (4-9) H 11/13/23 05:50 Eosinophils % (Manual) 0 % (0-6) 11/13/23 05:50 Basophils % (Manual) 0 % (0-1) 11/13/23 05:50 Plt Morphology Comment Normal (NORMAL) 11/13/23 05:50 RBC Morphology Abnormal (NORMAL) 11/13/23 05:50 Stomatocytes Slight A 11/13/23 05:50 Sodium 136 mmol/L (136-145) 11/14/23 05:57 Corrected Sodium TNP 11/14/23 05:57 Potassium 4.2 mmol/L (3.5-5.1) 11/14/23 05:57 Chloride 105 mmol/L (98-107) 11/14/23 05:57 Carbon Dioxide 21.6 mmol/L (21-32) 11/14/23 05:57 BUN 20 mg/dL (7-18) H 11/14/23 05:57 Creatinine 1.69 mg/dL (0.70-1.30) H 11/14/23 05:57 Est GFR (MDRD) Af Amer 50 (>60) L 11/14/23 05:57 Est GFR (MDRD) Non-Af 41 (>60) L 11/14/23 05:57 Glucose 94 mg/dL (65-99) 11/14/23 05:57 Calcium 8.7 mg/dL (8.5-10.1) 11/14/23 05:57 Corrected Calcium 9.9 mg/dL (8.5-10.1) 11/14/23 05:57 Total Bilirubin 0.20 mg/dL (0.2-1.0) 11/14/23 05:57 AST 40 Units/L (15-37) H 11/14/23 05:57 ALT 59 Units/L (12-78) 11/14/23 05:57 Alkaline Phosphatase 87 Units/L (46-116) 11/14/23 05:57 Creatine Kinase 274 Units/L (39-308) 11/13/23 11:29 Troponin I High Sens 17.1 ng/L (4.0-60.0) 11/13/23 11:29 Total Protein 6.2 g/dL (6.4-8.2) L 11/14/23 05:57 Albumin 2.5 g/dL (3.4-5.0) L 11/14/23 05:57 Globulin 3.7 g/dL (2.5-4.5) 11/14/23 05:57 Albumin/Globulin Ratio 0.7 Ratio (1.1-2.1) L 11/14/23 05:57 - Plan (1) Pneumonia Status: Acute Qualifiers: Pneumonia type: due to unspecified organism Laterality: unspecified laterality Lung location: unspecified part of lung Qualified Code(s): J18.9 - Pneumonia, unspecified organism Plan: ADMIT, NORMAL SALINE AT 75 ML/HR, LEVAQUIN 75 MG IV Q48H, FORTAZ 2G IV Q12H, DUONEBS QID, PULMICORT NEBS BID, TUSSIONEX 5ML Q12H PRN, ROBITUSSIN DM 10ML QID, LOVENOX 40MG SC DAILY, TYLENOL 650MG Q6H PRN, PROBIOTICS DAILY. WE RESUMED HIS HOME MEDICATIONS OF ZOCOR, NAMENDA, ESCITALOPRAM, DONEPEZIL, LEVOTHYROXINE, MONTELUKAST, AND TAMSULOSIN. (2) Failure of outpatient treatment Status: Acute (3) Generalized weakness Status: Acute (4) Chronic kidney disease (CKD) Status: Chronic Qualifiers: Chronic kidney disease stage: stage 3 (moderate) (5) COPD (chronic obstructive pulmonary disease) Status: Chronic Qualifiers: COPD type: unspecified COPD Qualified Code(s): J44.9 - Chronic obstructive pulmonary disease, unspecified (6) GERD (gastroesophageal reflux disease) Status: Chronic Qualifiers: Esophagitis presence: esophagitis presence not specified Qualified Code(s): K21.9 - Gastro-esophageal reflux disease without esophagitis (7) Hypothyroidism Status: Chronic (8) Hyperlipidemia Status: Chronic Qualifiers: Hyperlipidemia type: mixed hyperlipidemia Qualified Code(s): E78.2 - Mixed hyperlipidemia
[2023-11-15 04:00] VITALS: RESP 20
[2023-11-15] MEDS: NS 1/2 1,000 ML IV 1,000 ML IV SCH ×2 (05:13→15:00)
--- NOTE | 2023-11-15 06:15 | RAD ---
EXAM:CHEST, 1 VIEWHISTORY:Shortness of breath. History of pneumonia and COPD.COMPARISON:Chest one view from 11/14/2023.FINDINGS:SUPPORT DEVICES: None.HEART/MEDIASTINUM: No significant abnormality.LUNGS: More confluent airspace opacities are seen along the upper right lung with vague opacities again noted along the lower right lung. The left lung is clear. No significant pleural effusion. No pneumothorax.ADDITIONAL FINDINGS: None.IMPRESSION:Evolving suspected right pneumonia without other acute findings.THIS IS AN ELECTRONICALLY VERIFIED FINAL REPORT11/15/2023 6:12 AM - Electronically signed by Jackson Lu MD
[2023-11-15 06:20] LABS: BASOPHILS % (AUTO) 0.4 % (0.2-1.0); EOSINOPHILS # (AUTO) 0.2 x10^3/uL (0.0-0.2); EOSINOPHILS % (AUTO) 3.7 % (0.9-2.9); HEMATOCRIT 35.9 % (42.0-54.0); HEMOGLOBIN 12.2 g/dL (13.5-18.0); LYMPHOCYTES # (AUTO) 1.8 X10^3/uL (1.3-2.9); LYMPHOCYTES % (AUTO) 44.5 % (21.0-51.0); MEAN CORPUSCULAR HEMOGLOBIN 28.5 pg (27.0-34.0); MEAN CORPUSCULAR HGB CONC 33.9 g/dL (33.0-35.0); MEAN PLATELET VOLUME 8.4 fL (7.4-11.0); MONOCYTES # (AUTO) 0.7 x10^3/uL (0.3-0.8); MONOCYTES % (AUTO) 16.5 % (0.0-13.0); NEUTROPHILS # (AUTO) 1.4 x10^3/uL (2.2-4.8); NEUTROPHILS % (AUTO) 34.9 % (42.0-75.0); PLATELET COUNT 131 X10^3/uL (150.0-450.0); RED BLOOD COUNT 4.27 X10^6/uL (4.7-6.0); RED CELL DISTRIBUTION WIDTH 14.2 % (11.6-16.5)
[2023-11-15 06:27] LABS: ALANINE AMINOTRANSFERASE 52 Units/L (12-78); ALBUMIN 2.4 g/dL (3.4-5.0); ALKALINE PHOSPHATASE 85 Units/L (46-116); ASPARTATE AMINO TRANSFERASE 36 Units/L (15-37); BLOOD UREA NITROGEN 13 mg/dL (7-18); CALCIUM 8.5 mg/dL (8.5-10.1); CARBON DIOXIDE 22.3 mmol/L (21-32); CHLORIDE 106 mmol/L (98-107); COR CA(FOR HYPOALB) 9.8 mg/dL (8.5-10.1); CREATININE 1.42 mg/dL (0.70-1.30); GLUCOSE 83 mg/dL (65-99); POTASSIUM 4.3 mmol/L (3.5-5.1); SODIUM 139 mmol/L (136-145); TOTAL PROTEIN 6.2 g/dL (6.4-8.2); eGFR NON BLACK RACES 50 (>60)
[2023-11-15] MEDS ORDERED: LEXAPRO ONE (07:51)
[2023-11-15] MEDS: LOVENOX INJ 40 MG SYR SC SCH (08:49)
[2023-11-15] MEDS: FLOMAX PO SCH (08:49)
[2023-11-15] MEDS: ARICEPT TAB 10 MG PO SCH (08:49)
[2023-11-15] MEDS: FORTAZ or TAZICEF VIAL INJ 2 G in NS 100 ML IV 100 ML IV SCH ×2 (08:49→20:31)
[2023-11-15] MEDS: LEXAPRO PO SCH (08:49)
[2023-11-15] MEDS: VSL#3 PO SCH (08:50)
[2023-11-15] MEDS: NAMENDA TAB 10 MG PO SCH (08:50)
[2023-11-15] MEDS: SYNTHROID 100 mcg TAB PO SCH (08:50)
[2023-11-15] MEDS: ROBITUSSIN DM PO SCH ×4 (08:50→20:31)
[2023-11-15] MEDS: TUSSIONEX PENNKINETIC SUSP PO PRN ×2 (08:51→20:31)
[2023-11-15] MEDS: DUONEB 0.5 MG/3 MG (3 mL) NEB SCH ×4 (09:18→21:22)
[2023-11-15] MEDS: PULMICORT NEB TX 0.5 MG NEB SCH ×2 (09:18→21:22)
[2023-11-15] MEDS ORDERED: NS 1/2 1,000 ML IV 1,000 ML IV ONE (14:22)
[2023-11-15] MEDS: SINGULAIR TAB 10 MG PO SCH (20:32)
--- NOTE | 2023-11-15 22:36 | PCM.PROG ---
Progress Note - Progress Note for Day of Date of Exam: 11/15/23 - Subjective Subjective: IS CURRENTLY OBSERVATION STATUS FOR TREATMENT OF PNEUMONIA, FAILED OUTPATIENT TREATMENT AND GENERALIZED WEAKNESS. HIS PMH INCLUDES: HYPERLIPIDEMIA, CATARACTS, HYPERLIPIDEMIA, COPD, GERD, HYPOTHYROIDISM, BACK SURGERY, AND KIDNEY REMOVED. TODAY, HE IS ALERT AND ORIENTED, LYING IN BED ON MORNING ROUNDS. HE CONTINUES WITH COMPLAINTS OF AN INTERMITTENT COUGH AND SHORTNESS OF BREATH AT TIMES. HE DOES ADMIT TO SLIGHT IMPROVEMENT IN SYMPTOMS TODAY. ON EXAMINATION, HEART IS REGULAR IN RATE AND RHYTHM. BILATERAL LUNGS ARE NOTED WITH DIMINISHED LUNG SOUNDS THROUGHOUT. ABDOMEN IS ROUND, SOFT, AND NON- TENDER WITH NORMAL BOWEL SOUNDS NOTED IN ALL QUADRANTS. GOOD RANGES OF MOTION NOTED TO UPPER AND LOWER EXTREMITIES WITH NO EDEMA NOTED. HIS VITALS THIS MORNING ARE: 97.3-82-20-96%-161/68. LABS WERE OBTAINED. WBC 4.0, RBC 4.27, HGB 12.2, HCT 35.9, PLT COUNT 131, SODIUM 139, POTASSIUM 4.3, CHLORIDE 106, CARBON DIOXIDE 22.3, BUN 13, CREATININE 1.42, GLUCOSE 83, CALCIUM 8.5, AST 36, ALT 52, ALK PHOS 85, TOTAL PROTEIN 6.2, ALBUMIN 2.4. BLOOD AND SPUTUM CULTURES ARE PENDING. A CHEST XRAY WAS OBTAINED AND REVEALED: Evolving suspected right pneumonia without other acute findings. HE IS CURRENTLY RECEIVING NORMAL SALINE AT 75 ML/HR, LEVAQUIN 75 MG IV Q48H, FORTAZ 2G IV Q12H, DUONEBS QID, PULMICORT NEBS BID, TUSSIONEX 5ML Q12H PRN, ROBITUSSIN DM 10ML QID, LOVENOX 40MG SC DAILY, TYLENOL 650MG Q6H PRN, PROBIOTICS DAILY. WE RESUMED HIS HOME MEDICATIONS OF ZOCOR, NAMENDA, ESCITALOPRAM, DONEPEZIL, LEVOTHYROXINE, MONTELUKAST, AND TAMSULOSIN. WE WILL CONTINUE WITH CURRENT PLAN OF CARE TODAY. OTHERWISE, WE WILL FOLLOW-UP WITH AM LABS AND CHEST XRAY AND CONTINUE TO MONITOR. TIME SPENT ON CLINICAL ASSESSMENT, REVIEWING LABS AND IMAGING, DECISION MAKING, AND DOCUMENTATION GREATER THAN 45 MINUTES. - Past Medical Family Social History Past Med/Fam/Surg Hx: No changes since H&P Allergies: Allergies No Known Drug Allergies Allergy (Verified 12/17/19 19:31) - Review of Systems ROS: No change since H&P - Vital Signs and I&O's Vital Signs: Vital Signs Temperature 98.3 F Temperature 97.6 F Pulse Rate [Left Brachial] 72 Pulse Rate [Left Brachial] 74 Pulse Rate 60 Respiratory Rate 20 Respiratory Rate 20 Blood Pressure [Left Arm] 151/70 Blood Pressure [Left Arm] 136/65 O2 Sat by Pulse Oximetry 97 O2 Sat by Pulse Oximetry 98 O2 Sat by Pulse Oximetry 96 Intake and Output: Intake & Output 11/13/23 11/14/23 11/15/23 11/16/23 11:59 11:59 11:59 11:59 Intake Total 1463 / 1463 2991 / 2991 4545 / 4545 1470 / 1470 Balance 1463 / 1463 2991 / 2991 4545 / 4545 1470 / 1470 - Physical Exam Oriented: Normal Eyes: Normal Ear: Normal Nose: Normal Throat: Normal Respiratory: Diminished Cardiovascular: Normal : Normal Auscultation: Bowel Sounds: Normal Palpation: Normal Tenderness: Normal Skin: Normal Musculoskeletal: Normal Psychiatric: Normal Mood Description: Calm Affect: Normal Speech Pattern: Clear, Appropriate - Laboratory and Diagnostics Result Diagrams: 11/15/23 05:47 11/15/23 05:47 Labs: 11/14/23 15:27 Sputum - Expectorated Sputum Sputum Culture - Preliminary 11/14/23 15:27 Sputum - Expectorated Sputum - Final 11/12/23 18:09 Blood Blood Culture - Preliminary 11/12/23 18:00 Blood Blood Culture - Preliminary Laboratory WBC 4.0 X10^3/uL (3.6-10.0) 11/15/23 05:47 RBC 4.27 X10^6/uL (4.7-6.0) L 11/15/23 05:47 Hgb 12.2 g/dL (13.5-18.0) L 11/15/23 05:47 Hct 35.9 % (42.0-54.0) L 11/15/23 05:47 MCV 84.0 fL (80.0-100.0) 11/15/23 05:47 MCH 28.5 pg (27.0-34.0) 11/15/23 05:47 MCHC 33.9 g/dL (33.0-35.0) 11/15/23 05:47 RDW 14.2 % (11.6-16.5) 11/15/23 05:47 Plt Count 131 X10^3/uL (150.0-450.0) L 11/15/23 05:47 Plt Count Comment Adequate (ADEQUATE) 11/13/23 05:50 MPV 8.4 fL (7.4-11.0) 11/15/23 05:47 Neut % (Auto) 34.9 % (42.0-75.0) L 11/15/23 05:47 Lymph % (Auto) 44.5 % (21.0-51.0) 11/15/23 05:47 [place] % (Auto) 16.5 % (0.0-13.0) H 11/15/23 05:47 Eos % (Auto) 3.7 % (0.9-2.9) H 11/15/23 05:47 Baso % (Auto) 0.4 % (0.2-1.0) 11/15/23 05:47 Neut # (Auto) 1.4 x10^3/uL (2.2-4.8) L 11/15/23 05:47 Lymph # (Auto) 1.8 X10^3/uL (1.3-2.9) 11/15/23 05:47 [place] # (Auto) 0.7 x10^3/uL (0.3-0.8) 11/15/23 05:47 Eos # (Auto) 0.2 x10^3/uL (0.0-0.2) 11/15/23 05:47 Baso # (Auto) 0.0 X10^3/uL (0.0-0.1) 11/15/23 05:47 Absolute Nucleated RBC 0.1 /100WBC 11/15/23 05:47 Total Counted 100 11/13/23 05:50 Neutrophils % (Manual) 35 % (39-76) L 11/13/23 05:50 Band Neutrophils % 0 % (0-10) 11/13/23 05:50 Lymphocytes % (Manual) 42 % (13-43) 11/13/23 05:50 Monocytes % (Manual) 23 % (4-9) H 11/13/23 05:50 Eosinophils % (Manual) 0 % (0-6) 11/13/23 05:50 Basophils % (Manual) 0 % (0-1) 11/13/23 05:50 Plt Morphology Comment Normal (NORMAL) 11/13/23 05:50 RBC Morphology Abnormal (NORMAL) 11/13/23 05:50 Stomatocytes Slight A 11/13/23 05:50 Sodium 139 mmol/L (136-145) 11/15/23 05:47 Corrected Sodium TNP 11/15/23 05:47 Potassium 4.3 mmol/L (3.5-5.1) 11/15/23 05:47 Chloride 106 mmol/L (98-107) 11/15/23 05:47 Carbon Dioxide 22.3 mmol/L (21-32) 11/15/23 05:47 BUN 13 mg/dL (7-18) 11/15/23 05:47 Creatinine 1.42 mg/dL (0.70-1.30) H 11/15/23 05:47 Est GFR (MDRD) Af Amer > 60 (>60) 11/15/23 05:47 Est GFR (MDRD) Non-Af 50 (>60) L 11/15/23 05:47 Glucose 83 mg/dL (65-99) 11/15/23 05:47 Calcium 8.5 mg/dL (8.5-10.1) 11/15/23 05:47 Corrected Calcium 9.8 mg/dL (8.5-10.1) 11/15/23 05:47 Total Bilirubin 0.30 mg/dL (0.2-1.0) 11/15/23 05:47 AST 36 Units/L (15-37) 11/15/23 05:47 ALT 52 Units/L (12-78) 11/15/23 05:47 Alkaline Phosphatase 85 Units/L (46-116) 11/15/23 05:47 Creatine Kinase 274 Units/L (39-308) 11/13/23 11:29 Troponin I High Sens 17.1 ng/L (4.0-60.0) 11/13/23 11:29 Total Protein 6.2 g/dL (6.4-8.2) L 11/15/23 05:47 Albumin 2.4 g/dL (3.4-5.0) L 11/15/23 05:47 Globulin 3.8 g/dL (2.5-4.5) 11/15/23 05:47 Albumin/Globulin Ratio 0.6 Ratio (1.1-2.1) L 11/15/23 05:47 - Plan (1) Pneumonia Status: Acute Qualifiers: Pneumonia type: due to unspecified organism Laterality: unspecified laterality Lung location: unspecified part of lung Qualified Code(s): J18.9 - Pneumonia, unspecified organism Plan: NORMAL SALINE AT 75 ML/HR, LEVAQUIN 75 MG IV Q48H, FORTAZ 2G IV Q12H, DUONEBS QID, PULMICORT NEBS BID, TUSSIONEX 5ML Q12H PRN, ROBITUSSIN DM 10ML QID, LOVENOX 40MG SC DAILY, TYLENOL 650MG Q6H PRN, PROBIOTICS DAILY. WE RESUMED HIS HOME MEDICATIONS OF ZOCOR, NAMENDA, ESCITALOPRAM, DONEPEZIL, LEVOTHYROXINE, MONTELUKAST, AND TAMSULOSIN. (2) Failure of outpatient treatment Status: Acute (3) Generalized weakness Status: Acute (4) Chronic kidney disease (CKD) Status: Chronic Qualifiers: Chronic kidney disease stage: stage 3 (moderate) (5) COPD (chronic obstructive pulmonary disease) Status: Chronic Qualifiers: COPD type: unspecified COPD Qualified Code(s): J44.9 - Chronic obstructive pulmonary disease, unspecified (6) GERD (gastroesophageal reflux disease) Status: Chronic Qualifiers: Esophagitis presence: esophagitis presence not specified Qualified Code(s): K21.9 - Gastro-esophageal reflux disease without esophagitis (7) Hypothyroidism Status: Chronic (8) Hyperlipidemia Status: Chronic Qualifiers: Hyperlipidemia type: mixed hyperlipidemia Qualified Code(s): E78.2 - Mixed hyperlipidemia
[2023-11-16] MEDS ORDERED: NS 1/2 1,000 ML IV 1,000 ML IV ONE (05:02)
[2023-11-16] MEDS: NS 1/2 1,000 ML IV 1,000 ML IV SCH ×2 (05:09→05:29)
[2023-11-16 06:46] LABS: BASOPHILS % (AUTO) 0.4 % (0.2-1.0); EOSINOPHILS # (AUTO) 0.2 x10^3/uL (0.0-0.2); EOSINOPHILS % (AUTO) 4.9 % (0.9-2.9); HEMATOCRIT 36.5 % (42.0-54.0); HEMOGLOBIN 12.4 g/dL (13.5-18.0); LYMPHOCYTES % (AUTO) 49.1 % (21.0-51.0); MEAN CORPUSCULAR HEMOGLOBIN 28.3 pg (27.0-34.0); MEAN CORPUSCULAR HGB CONC 33.9 g/dL (33.0-35.0); MEAN CORPUSCULAR VOLUME 83.4 fL (80.0-100.0); MEAN PLATELET VOLUME 8.8 fL (7.4-11.0); MONOCYTES # (AUTO) 0.6 x10^3/uL (0.3-0.8); MONOCYTES % (AUTO) 15.4 % (0.0-13.0); NEUTROPHILS # (AUTO) 1.2 x10^3/uL (2.2-4.8); NEUTROPHILS % (AUTO) 30.2 % (42.0-75.0); PLATELET COUNT 133 X10^3/uL (150.0-450.0); RED BLOOD COUNT 4.37 X10^6/uL (4.7-6.0); RED CELL DISTRIBUTION WIDTH 14.4 % (11.6-16.5); WHITE BLOOD COUNT 4.1 X10^3/uL (3.6-10.0)
--- NOTE | 2023-11-16 06:47 | RAD ---
EXAM:Portable chestHISTORY:Shortness of breathCOMPARISON:11/15/2023, 11/14/2023 chest x-rays, chest CT 11/13/2023 11/30/2021FINDINGS:Heart size is normal. [place] are normal. Lungs are well inflated. Chronic abnormal parenchymal density is present in the right upper lobe previously visualized on multiple prior chest x-rays and CT and felt to represent sequela of prior infection. It is stable. Remainder of the lung landers are clear. No pleural effusions are identified. Bony thorax is unremarkable.IMPRESSION:No definite acute infiltratesChronic right upper lobe parenchymal abnormality, longstanding and stable likely related to prior granulomatous infectionTHIS IS AN ELECTRONICALLY VERIFIED FINAL REPORT11/16/2023 6:44 AM - Electronically signed by Ervin Tierney MD
[2023-11-16 07:18] LABS: ALANINE AMINOTRANSFERASE 49 Units/L (12-78); ALBUMIN 2.5 g/dL (3.4-5.0); ALKALINE PHOSPHATASE 83 Units/L (46-116); ASPARTATE AMINO TRANSFERASE 31 Units/L (15-37); BLOOD UREA NITROGEN 13 mg/dL (7-18); CALCIUM 8.6 mg/dL (8.5-10.1); CARBON DIOXIDE 23.9 mmol/L (21-32); CHLORIDE 106 mmol/L (98-107); COR CA(FOR HYPOALB) 9.8 mg/dL (8.5-10.1); CREATININE 1.44 mg/dL (0.70-1.30); GLUCOSE 79 mg/dL (65-99); POTASSIUM 4.4 mmol/L (3.5-5.1); SODIUM 139 mmol/L (136-145); TOTAL PROTEIN 6.3 g/dL (6.4-8.2); eGFR NON BLACK RACES 49 (>60)
[2023-11-16] MEDS ORDERED: LEXAPRO ONE (08:49)
[2023-11-16] MEDS: FORTAZ or TAZICEF VIAL INJ 2 G in NS 100 ML IV 100 ML IV SCH (08:55)
[2023-11-16] MEDS: FLOMAX PO SCH (08:56)
[2023-11-16] MEDS: LEXAPRO PO SCH (08:57)
[2023-11-16] MEDS: NAMENDA TAB 10 MG PO SCH (08:57)
[2023-11-16] MEDS: SYNTHROID 100 mcg TAB PO SCH (08:57)
[2023-11-16] MEDS: ARICEPT TAB 10 MG PO SCH (08:57)
[2023-11-16] MEDS: VSL#3 PO SCH (09:01)
[2023-11-16] MEDS: ROBITUSSIN DM PO SCH (09:01)
[2023-11-16] MEDS: LOVENOX INJ 40 MG SYR SC SCH (09:02)
[2023-11-16 09:06] VITALS: BP 134/74; PULSE 70; TEMP 98.2
[2023-11-16] MEDS: PULMICORT NEB TX 0.5 MG NEB SCH (09:40)
[2023-11-16] MEDS: DUONEB 0.5 MG/3 MG (3 mL) NEB SCH (09:40)
[2023-11-16 09:45] VITALS: O2SAT 98
== END 2023-11-16 12:20 | disposition home or self-care (01) ==
LOC: MED/SURG
PROVIDERS: ADMIT Internal Medicine; ATTEND Internal Medicine
DX: E03.8 Other specified hypothyroidism; U07.1 COVID-19; R06.02 Shortness of breath; R41.82 Altered mental status, unspecified; E78.2 Mixed hyperlipidemia; J15.69 Pneumonia due to other Gram-negative bacteria; N18.9 Chronic kidney disease, unspecified; E87.1 Hypo-osmolality and hyponatremia; M54.9 Dorsalgia, unspecified; R53.1 Weakness; Z91.81 History of falling; J44.9 Chronic obstructive pulmonary disease, unspecified

== ENCOUNTER 2024-10-01 09:53 | Observation (INO) ==
--- NOTE | 2024-10-01 10:23 | DR.N/VMALE ---
HPI Time Seen Time Seen by Provider: 10/01/24 10:00 Primary Care Physician Primary Care Physician: jairon mosquera Complaints Chief Complaint:: Patient states around 4am he started having nausea/vomiting states lastnight he had a good bowel movement but states he has had a little bit of abd pain to the LLQ along with abd distention. along with right shoulder pain that has been going on for 3 wks now. COVID-19 Coronavirus risk:travel/contact w/high risk person: No Has patient experienced Coronavirus symptoms: No Source History Provided: Patient Mode of Arrival Mode of Arrival: EMS Timing Onset of Chief Complaint: 10/01/24 PMH PMH Past Medical History: Yes Past Medical History: COPD, Dementia, Depression and Hyperthyroidism Past Surgical History: Yes Surgical History: Ortho Surgery and Other Past Surgical History Comment: back sx, kidney removed, hemorridectomy Family History History of Family Medical Conditions: Yes Family Medical History: Diabetes Mellitus, Cancer, [place], Sudden Cardiac and Hypertension Social History Does patient currently use any type of tobacco product: No Have you used tobacco products in the last 12 months: No Type of Tobacco Use: None Does any household member use tobacco: No Alcohol Use: None Do you use any recreational Drugs:: No Lives With: Family Lives Where: Home Travel Risk Coronavirus risk:travel/contact w/high risk person: No Has patient experienced Coronavirus symptoms: No Infectious screening In the last 2 months have you had wt loss of >10#?: NO Have you had fever, night sweats or hemotysis?: No Have you traveled outside the country in the last 6 months?: No Isolation: Standard PE Vital Signs Vitals: Vital Signs Temperature 97.7 F Pulse Rate 82 Respiratory Rate 18 Blood Pressure 136/59 O2 Sat by Pulse Oximetry 98 ROR Labs Reviewed 10/01/24 10:35 10/01/24 10:35 Laboratory: WBC 14.5 X10^3/uL (3.6-10.0) H 10/01/24 10:35 RBC 5.10 X10^6/uL (4.7-6.0) 10/01/24 10:35 Hgb 14.6 g/dL (13.5-18.0) 10/01/24 10:35 Hct 43.2 % (42.0-54.0) 10/01/24 10:35 MCV 84.8 fL (80.0-100.0) 10/01/24 10:35 MCH 28.7 pg (27.0-34.0) 10/01/24 10:35 MCHC 33.8 g/dL (33.0-35.0) 10/01/24 10:35 RDW 14.0 % (11.6-16.5) 10/01/24 10:35 Plt Count 186 X10^3/uL (150.0-450.0) 10/01/24 10:35 Plt Count Comment Adequate (ADEQUATE) 10/01/24 10:35 MPV 8.3 fL (7.4-11.0) 10/01/24 10:35 Neut % (Auto) 92.0 % (42.0-75.0) H 10/01/24 10:35 Lymph % (Auto) 3.4 % (21.0-51.0) L 10/01/24 10:35 [place] % (Auto) 3.7 % (0.0-13.0) 10/01/24 10:35 Eos % (Auto) 0.2 % (0.9-2.9) L 10/01/24 10:35 Baso % (Auto) 0.7 % (0.2-1.0) 10/01/24 10:35 Neut # (Auto) 13.4 x10^3/uL (2.2-4.8) H 10/01/24 10:35 Lymph # (Auto) 0.5 X10^3/uL (1.3-2.9) L 10/01/24 10:35 [place] # (Auto) 0.5 x10^3/uL (0.3-0.8) 10/01/24 10:35 Eos # (Auto) 0.0 x10^3/uL (0.0-0.2) 10/01/24 10:35 Baso # (Auto) 0.1 X10^3/uL (0.0-0.1) 10/01/24 10:35 Absolute Nucleated RBC 0.0 /100WBC 10/01/24 10:35 Total Counted 100 10/01/24 10:35 Neutrophils % (Manual) 97 % (39-76) H 10/01/24 10:35 Lymphocytes % (Manual) 2 % (13-43) L 10/01/24 10:35 Monocytes % (Manual) 1 % (4-9) L 10/01/24 10:35 Plt Morphology Comment Normal (NORMAL) 10/01/24 10:35 RBC Morphology Normal (NORMAL) 10/01/24 10:35 Sodium 139 mmol/L (136-145) 10/01/24 10:35 Corrected Sodium 140 mmol/L (136-145) 10/01/24 10:35 Potassium 5.1 mmol/L (3.5-5.1) 10/01/24 10:35 Chloride 104 mmol/L (98-107) 10/01/24 10:35 Carbon Dioxide 25.1 mmol/L (21-32) 10/01/24 10:35 BUN 25 mg/dL (7-18) H 10/01/24 10:35 Creatinine 1.83 mg/dL (0.70-1.30) H 10/01/24 10:35 Est GFR (MDRD) Af Amer 45 (>60) L 10/01/24 10:35 Est GFR (MDRD) Non-Af 37 (>60) L 10/01/24 10:35 Glucose 144 mg/dL (65-99) H 10/01/24 10:35 Calcium 9.0 mg/dL (8.5-10.1) 10/01/24 10:35 Corrected Calcium 9.7 mg/dL (8.5-10.1) 10/01/24 10:35 Magnesium 1.5 mg/dL (2.0-2.9) L 10/01/24 10:35 Total Bilirubin 0.40 mg/dL (0.2-1.0) 10/01/24 10:35 AST 23 Units/L (15-37) 10/01/24 10:35 ALT 42 Units/L (12-78) 10/01/24 10:35 Alkaline Phosphatase 125 Units/L (46-116) H 10/01/24 10:35 Total Protein 7.3 g/dL (6.4-8.2) 10/01/24 10:35 Albumin 3.1 g/dL (3.4-5.0) L 10/01/24 10:35 Globulin 4.2 g/dL (2.5-4.5) 10/01/24 10:35 Albumin/Globulin Ratio 0.7 Ratio (1.1-2.1) L 10/01/24 10:35 Amylase 107 Units/L (25-115) 10/01/24 10:35 Lipase 65 Units/L (16-77) 10/01/24 10:35 Specimen Type Clean catch urine 10/01/24 11:52 Urine Color Pale yellow (YELLOW) 10/01/24 11:52 Urine Appearance Clear (CLEAR) 10/01/24 11:52 Urine pH 5.0 (5.0 - 8.0) 10/01/24 11:52 Ur Specific [place] 1.020 (1.000-1.030) 10/01/24 11:52 Urine Protein 1+ (NEGATIVE) 10/01/24 11:52 Urine Glucose (UA) Negative (NEGATIVE) 10/01/24 11:52 Urine Ketones Negative (NEGATIVE) 10/01/24 11:52 Urine Blood Negative (NEGATIVE) 10/01/24 11:52 Urine Nitrite Negative (NEGATIVE) 10/01/24 11:52 Urine Bilirubin Negative (NEGATIVE) 10/01/24 11:52 Urine Urobilinogen Normal (NORMAL) 10/01/24 11:52 Ur Leukocyte Esterase Negative (NEGATIVE) 10/01/24 11:52 Urine RBC None seen /HPF (0-3) 10/01/24 11:52 Urine WBC 0-2 /HPF (0-5) 10/01/24 11:52 Ur Squamous Epith Cells Few /HPF (NEGATIVE) 10/01/24 11:52 Amorphous Sediment Trace /HPF (NEGATIVE) 10/01/24 11:52 Urine Bacteria Trace /HPF (NEGATIVE) 10/01/24 11:52 Urine Mucus Rare /HPF (NEGATIVE) 10/01/24 11:52 Ur Culture Indicated? No/not indicated 10/01/24 11:52 SARS-CoV-2 (PCR) Negative (NEGATIVE) 10/01/24 10:40 Influenza Type A (PCR) Negative (NEGATIVE) 10/01/24 10:40 Influenza Type B (PCR) Negative (NEGATIVE) 10/01/24 10:40 RSV (PCR) Negative (NEGATIVE) 10/01/24 10:40 Opioid Opioid Risk Tool Age ([place]rick box if 16-45): No History of Preadolescent Sexual Abuse: No Total: 0 Total Score Risk Category: Low Risk Copyright: [facility] predicting aberrant behaviors Discharge Plan Diagnosis Discharge Problem: Generalized weakness, Hypomagnesemia, Acute pain of right shoulder Abdominal pain Qualifiers: Abdominal location: generalized Qualified Code(s): R10.84 - Generalized abdominal pain Vomiting Qualifiers: Vomiting type: unspecified Nausea presence: unspecified Qualified Code(s): R11.10 - Vomiting, unspecified Discharge Plan Patient Disposition: HOME, SELF-CARE Condition: Stable Prescriptions: No Action tamsulosin 0.4 MG capsule,extended release 24hr 0.4 mg PO QAM aspirin 81 MG tablet,chewable 81 mg PO DAILY memantine [Namenda XR] 28 MG cap,sprinkle,ER 24hr dose pack 1 cap PO DAILY Patient Comments: levothyroxine 100 mcg tablet 100 mcg PO DAILY escitalopram oxalate 10 mg tablet 10 mg PO DAILY montelukast 10 mg Tablet 10 mg PO QHS Qty: 30 3RF Rx Instructions: take one tablet at bedtime simvastatin [Zocor] 20 mg tablet 20 mg PO DAILY donepezil 10 mg tablet 10 mg PO DAILY atorvastatin 20 mg tablet 20 mg PO QDAY Health Concerns: Post Hospitalization: new medications and changes needed to prevent readmission or further decline. Pt educated and given instructions on all concerns. Plan of Treatment: Continue with present treatment and follow up plan. Pt is to keep follow up appointment as instructed and take medications as ordered. Orders to Discharge Patient Discharge Orders: Transfer (Routine); Ordered 10/01/24 Ordered By: ANN-MARIE CORNELIUS Follow ups/Referrals Follow ups/Referrals: [facility],None [STAFF PHYSICIAN] - 3 days Instructions Stand Alone Forms: Find Help Web Site, Post Hospital Follow Up Care
[2024-10-01] MEDS: ZOFRAN INJ 4 MG VIAL IVP ONE ×2 (10:38→13:52)
[2024-10-01] MEDS: NS 1,000 ML IV 1,000 ML IV SCH (10:38)
[2024-10-01 10:44] LABS: BASOPHILS # (AUTO) 0.1 X10^3/uL (0.0-0.1); BASOPHILS % (AUTO) 0.7 % (0.2-1.0); EOSINOPHILS % (AUTO) 0.2 % (0.9-2.9); HEMATOCRIT 43.2 % (42.0-54.0); HEMOGLOBIN 14.6 g/dL (13.5-18.0); LYMPHOCYTES # (AUTO) 0.5 X10^3/uL (1.3-2.9); LYMPHOCYTES % (AUTO) 3.4 % (21.0-51.0); MEAN CORPUSCULAR HEMOGLOBIN 28.7 pg (27.0-34.0); MEAN CORPUSCULAR HGB CONC 33.8 g/dL (33.0-35.0); MEAN CORPUSCULAR VOLUME 84.8 fL (80.0-100.0); MEAN PLATELET VOLUME 8.3 fL (7.4-11.0); MONOCYTES # (AUTO) 0.5 x10^3/uL (0.3-0.8); MONOCYTES % (AUTO) 3.7 % (0.0-13.0); NEUTROPHILS # (AUTO) 13.4 x10^3/uL (2.2-4.8); PLATELET COUNT 186 X10^3/uL (150.0-450.0); WHITE BLOOD COUNT 14.5 X10^3/uL (3.6-10.0)
[2024-10-01 10:58] LABS: ALBUMIN 3.1 g/dL (3.4-5.0); CARBON DIOXIDE 25.1 mmol/L (21-32); COR CA(FOR HYPOALB) 9.7 mg/dL (8.5-10.1); CREATININE 1.83 mg/dL (0.70-1.30); MAGNESIUM 1.5 mg/dL (2.0-2.9); POTASSIUM 5.1 mmol/L (3.5-5.1); TOTAL PROTEIN 7.3 g/dL (6.4-8.2)
[2024-10-01 11:18] LABS: PLATELET MORPHOLOGY COMMENT NORMAL (NORMAL)
[2024-10-01 11:59] LABS: BILIRUBIN,URINE NEGATIVE (NEGATIVE); BLOOD/HEMOGLOBIN,URINE NEGATIVE (NEGATIVE); GLUCOSE, URINE NEGATIVE (NEGATIVE); KETONES,URINE NEGATIVE (NEGATIVE); LEUKOCYTE ESTERASE ,URINE NEGATIVE (NEGATIVE); NITRITES,URINE NEGATIVE (NEGATIVE); PROTEIN,URINE 1+ (NEGATIVE); UROBILINOGEN,URINE NORMAL (NORMAL)
[2024-10-01 12:00] LABS: APPEARANCE,URINE CLEAR (CLEAR); COLOR,URINE PALE YELLOW (YELLOW)
[2024-10-01 12:10] LABS: BACTERIA,URINE TRACE /HPF (NEGATIVE); RBC,URINE NONE SEEN /HPF (0-3); SQUAMOUS EPITHELIAL CELL,UR FEW /HPF (NEGATIVE)
[2024-10-01] MEDS: MAGNESIUM SULFATE 1 GRAM/100 mL PREMIX 1 G/100 ML BAG IV ONE (12:17)
--- NOTE | 2024-10-01 12:32 | CT ---
EXAM:ABDOMEN/PELVIS W/O CONHISTORY:Nausea and vomiting. Left lower quadrant abdominal pain with distention.COMPARISON:None.TECHNIQUE:[facility] tiple axial images of the abdomen and pelvis were obtained from the lung bases to the pubic symphysis without the administration of IV contrast.FINDINGS:Optimal evaluation is limited given the lack of intravenous contrast. There are mild dependent changes in the left lung base. The included portions of the lung bases are otherwise clear. The liver, gallbladder, pancreas, spleen and adrenal glands are unremarkable in their noncontrast CT appearance. The left kidney is not visualized and is thought to be surgically absent. There is a 3 mm nonobstructing stone in the lower pole of the right kidney which is otherwise grossly unremarkable. There are no calcified stones along the course of the right ureter. The urinary bladder is partially distended and grossly unremarkable. Prostate is normal in size. The appendix is normal. There are a few scattered sigmoid diverticula without evidence of acute diverticulitis. There is no small bowel dilatation. There is no intraperitoneal free air or free fluid. There is no significant mesenteric stranding or lymphadenopathy. There are several scattered benign-appearing mediastinal and retroperitoneal calcifications. There is atherosclerotic disease of the nonaneurysmal abdominal aorta. The bony structures are grossly intact.IMPRESSION:1. No acute abnormality of the abdomen or pelvis given the lack of intravenous contrast.2. Chronic, incidental and postsurgical changes as above.THIS IS AN ELECTRONICALLY VERIFIED FINAL [id number]/01/2024 12:28 PM - Electronically signed by Jj Acuña MD
[2024-10-01] MEDS ORDERED: CONSULT PHARMACY - POTASSIUM & MAGNESIUM XX SCH (14:00)
[2024-10-01] MEDS: MORPHINE SULFATE INJ 2 MG INJ IVP ONE (14:27)
[2024-10-01 15:39] VITALS: BMI 25.6
[2024-10-01] MEDS: ARICEPT TAB 10 MG PO SCH (20:48)
--- NOTE | 2024-10-02 01:40 | RAD ---
EXAM: SHOULDER, RIGHT HISTORY: pain, HX of fall; COMPARISON: September 16, 2024 TECHNIQUE: Right shoulder radiographs, 3 views, AP internal/external rotation and scapular-Y projections FINDINGS: No fracture or dislocation. Acromioclavicular joint appears normal. Glenohumeral joint appears normal. Humeroacromial interval appears normal. Soft tissues are unremarkable. IMPRESSION: No acute osseous abnormality. THIS IS AN ELECTRONICALLY VERIFIED FINAL REPORT 10/02/2024 1:37 AM - Electronically signed by Jorge Dean MD
[2024-10-02] MEDS: ZOFRAN INJ 4 MG VIAL IVP PRN (02:05)
[2024-10-02] MEDS: SYNTHROID 100 mcg TAB PO SCH (06:01)
[2024-10-02 06:20] LABS: BASOPHILS % (AUTO) 0.2 % (0.2-1.0); EOSINOPHILS % (AUTO) 0.1 % (0.9-2.9); HEMATOCRIT 36.6 % (42.0-54.0); HEMOGLOBIN 12.5 g/dL (13.5-18.0); LYMPHOCYTES # (AUTO) 2.2 X10^3/uL (1.3-2.9); LYMPHOCYTES % (AUTO) 19.1 % (21.0-51.0); MEAN CORPUSCULAR HEMOGLOBIN 28.9 pg (27.0-34.0); MEAN CORPUSCULAR HGB CONC 34.1 g/dL (33.0-35.0); MEAN CORPUSCULAR VOLUME 84.9 fL (80.0-100.0); MEAN PLATELET VOLUME 8.6 fL (7.4-11.0); MONOCYTES # (AUTO) 1.2 x10^3/uL (0.3-0.8); MONOCYTES % (AUTO) 10.9 % (0.0-13.0); NEUTROPHILS # (AUTO) 7.8 x10^3/uL (2.2-4.8); NEUTROPHILS % (AUTO) 69.7 % (42.0-75.0); PLATELET COUNT 160 X10^3/uL (150.0-450.0); RED BLOOD COUNT 4.31 X10^6/uL (4.7-6.0); RED CELL DISTRIBUTION WIDTH 14.1 % (11.6-16.5); WHITE BLOOD COUNT 11.3 X10^3/uL (3.6-10.0)
[2024-10-02 06:38] LABS: ALBUMIN 2.5 g/dL (3.4-5.0); CARBON DIOXIDE 25.1 mmol/L (21-32); COR CA(FOR HYPOALB) 9.2 mg/dL (8.5-10.1); CREATININE 1.61 mg/dL (0.70-1.30); MAGNESIUM 1.8 mg/dL (2.0-2.9); POTASSIUM 4.1 mmol/L (3.5-5.1); TOTAL PROTEIN 6.2 g/dL (6.4-8.2)
[2024-10-02] MEDS: KENALOG INJ 40 MG IM ONE ×2 (06:51→08:34)
[2024-10-02] MEDS: XYLOCAINE 1 % (PLAIN) ONE (08:34)
[2024-10-02] MEDS: FLOMAX PO SCH (09:52)
[2024-10-02] MEDS: ASPIRIN 81 MG CHEWTAB PO SCH (09:52)
[2024-10-02] MEDS: LEXAPRO PO SCH (09:52)
[2024-10-02] MEDS: NAMENDA TAB 10 MG PO SCH (09:52)
[2024-10-02] MEDS: LEXAPRO ONE (11:00)
[2024-10-02] MEDS ORDERED: TYLENOL 325 MG TAB PO PRN (12:43)
[2024-10-02] MEDS ORDERED: CONSULT PHARMACY - POTASSIUM & MAGNESIUM XX SCH (13:00)
[2024-10-02] MEDS: MAG-OX TAB PO ONE (13:32)
[2024-10-02] MEDS: DUONEB 0.5 MG/3 MG (3 mL) NEB PRN (13:32)
[2024-10-02] MEDS: TUSSIONEX PENNKINETIC SUSP PO PRN (13:32)
[2024-10-02] MEDS: ROBITUSSIN DM PO PRN (17:49)
[2024-10-02 17:53] LABS: BILIRUBIN,URINE NEGATIVE (NEGATIVE); BLOOD/HEMOGLOBIN,URINE NEGATIVE (NEGATIVE); GLUCOSE, URINE NEGATIVE (NEGATIVE); KETONES,URINE NEGATIVE (NEGATIVE); LEUKOCYTE ESTERASE ,URINE NEGATIVE (NEGATIVE); NITRITES,URINE NEGATIVE (NEGATIVE); PROTEIN,URINE NEGATIVE (NEGATIVE); UROBILINOGEN,URINE NORMAL (NORMAL)
[2024-10-02 17:54] LABS: APPEARANCE,URINE CLEAR (CLEAR); COLOR,URINE PALE YELLOW (YELLOW)
[2024-10-03 06:15] LABS: BASOPHILS % (AUTO) 0.4 % (0.2-1.0); EOSINOPHILS % (AUTO) 0.3 % (0.9-2.9); HEMATOCRIT 35.2 % (42.0-54.0); HEMOGLOBIN 12.1 g/dL (13.5-18.0); LYMPHOCYTES # (AUTO) 1.9 X10^3/uL (1.3-2.9); LYMPHOCYTES % (AUTO) 19.3 % (21.0-51.0); MEAN CORPUSCULAR HEMOGLOBIN 29.1 pg (27.0-34.0); MEAN CORPUSCULAR HGB CONC 34.2 g/dL (33.0-35.0); MEAN CORPUSCULAR VOLUME 85.2 fL (80.0-100.0); MONOCYTES # (AUTO) 1.3 x10^3/uL (0.3-0.8); MONOCYTES % (AUTO) 12.9 % (0.0-13.0); NEUTROPHILS # (AUTO) 6.5 x10^3/uL (2.2-4.8); NEUTROPHILS % (AUTO) 67.1 % (42.0-75.0); PLATELET COUNT 131 X10^3/uL (150.0-450.0); RED BLOOD COUNT 4.14 X10^6/uL (4.7-6.0); RED CELL DISTRIBUTION WIDTH 14.3 % (11.6-16.5); WHITE BLOOD COUNT 9.7 X10^3/uL (3.6-10.0)
[2024-10-03 06:39] LABS: ALANINE AMINOTRANSFERASE 36 Units/L (12-78); ALBUMIN 2.5 g/dL (3.4-5.0); ALKALINE PHOSPHATASE 98 Units/L (46-116); ASPARTATE AMINO TRANSFERASE 28 Units/L (15-37); BLOOD UREA NITROGEN 16 mg/dL (7-18); CALCIUM 8.4 mg/dL (8.5-10.1); CARBON DIOXIDE 23.3 mmol/L (21-32); CHLORIDE 107 mmol/L (98-107); COR CA(FOR HYPOALB) 9.6 mg/dL (8.5-10.1); CREATININE 1.39 mg/dL (0.70-1.30); GLUCOSE 108 mg/dL (65-99); MAGNESIUM 2.1 mg/dL (2.0-2.9); POTASSIUM 4.3 mmol/L (3.5-5.1); SODIUM 138 mmol/L (136-145); TOTAL PROTEIN 6.2 g/dL (6.4-8.2); eGFR NON BLACK RACES 51 (>60)
[2024-10-03 08:38] VITALS: BP 143/68; TEMP 98.7; O2SAT 93
--- NOTE | 2024-10-03 08:38 | RAD ---
EXAMINATION:CHEST, 1 VIEWHISTORY:Coughing; .COMPARISON STUDY:11/16/2023. CT chest 11/13/2023TECHNIQUE:One viewFINDINGS:Heart size is normal. No acute infiltrates. Chronic parenchymal opacity in the right upper lobe is unchanged from multiple previous studies and has been described as sequela of prior infection. No pneumothorax. Hilar and mediastinal structures and bony structures are unremarkable and unchanged. Slightly elevated right hemidiaphragm.IMPRESSION:No acute findings.No change compared with previous. Chronic opacity within the right upper lobe as previously described is unchangedTHIS IS AN ELECTRONICALLY VERIFIED FINAL [id number]/03/2024 8:31 AM - Electronically signed by Kasi Parekh MD
--- NOTE | 2024-10-03 08:49 | DR.H&P ---
H&P History & Physical for Day of: H&P Date: 10/01/24 Chief Complaint Chief Complaint: weakness History of Present Illness History of Present Illness: Pt to ER from home via EMS due to worsening weakness, nausea w/o vomiting, and RT shoulder pain. Had a fall 15 days ago and seen in the ER the AM after. XR negative for acute injury, but worsening pain and decreasing ROM since then. Some family with "GI bug" earlier this week, but none sick for more than 24hrs. Shoulder: Shoulders been hurting since his first fall 2 weeks ago. Hurts more since the fall this morning. Reports he can move it forward fairly easily, backwards easily, and unable to move it laterally. No deformity, warmth, or redness. COPD: No recent exacerbations. He is using his oxygen and nebulizer at home. Patient does report that he thinks his weakness is due to things given activities. Had a big family gathering on Thursday that included setting up his [employer] decorations and a lot of cooking. Said he felt normal yesterday while that that activity was going on, but felt very weak this morning. Patient was unable to carry his weight on his legs. ROS: 12 point ROS negative except as noted in HPI. PE: Elderly male in no acute distress. Head NCAT. Hearing intact conversation. Extraocular movements normal. Heart regular rate and rhythm. Lungs but slightly diminished. Belly is soft and nontender with bowel sounds present. Mood & affect appropriate. Does have BLE weakness, 4/5 strength. Right shoulder range of motion is limited with abduction. Internal and external rotation benign both actively and passively. No tenderness to palpation. Alert and oriented x 4. Past Medical History Past Medical History: COPD, Dementia, Depression and Hyperthyroidism Past Surgical History Surgical History: Other Family History Family Medical History: Diabetes Mellitus and Coronary Artery Disease Social History Does patient currently use any type of tobacco product: No Have you used tobacco products in the last 12 months: No Type of Tobacco Use: None Does any household member use tobacco: Yes Alcohol Use: None Drug Use: None Medications Home Medications: Home Medications Medication Instructions Recorded Confirmed Type aspirin 81 mg chewable tablet 81 mg PO DAILY 05/02/13 10/01/24 History tamsulosin 0.4 mg capsule 0.4 mg PO QAM 05/02/13 10/01/24 History memantine 28 mg capsule 1 cap PO DAILY 12/26/16 10/01/24 History sprinkle,extended release 24hr (Namenda XR) donepezil 10 mg tablet 10 mg PO DAILY 03/19/19 10/01/24 History escitalopram oxalate 10 mg tablet 10 mg PO DAILY 12/17/19 10/01/24 History levothyroxine 100 mcg tablet 100 mcg PO DAILY 12/17/19 10/01/24 History coenzyme Q10 30 mg capsule 30 mg PO QDAY 10/01/24 10/01/24 History folic acid 800 mcg tablet 0.8 mg PO QDAY 10/01/24 10/01/24 History multivitamin 1 tab PO QAM 10/01/24 10/01/24 History niacin 500 mg tablet 500 mg PO QDAY 10/01/24 10/01/24 History Allergies Allergies Allergy/AdvReac Type Severity Reaction Status Date / Time [id number] Reductase AdvReac Verified 10/01/24 15:01 Inhibitor Labs 10/03/24 05:30 10/03/24 05:30 Labs: Laboratory WBC 14.5 X10^3/uL (3.6-10.0) H 10/01/24 10:35 RBC 5.10 X10^6/uL (4.7-6.0) 10/01/24 10:35 Hgb 14.6 g/dL (13.5-18.0) 10/01/24 10:35 Hct 43.2 % (42.0-54.0) 10/01/24 10:35 MCV 84.8 fL (80.0-100.0) 10/01/24 10:35 MCH 28.7 pg (27.0-34.0) 10/01/24 10:35 MCHC 33.8 g/dL (33.0-35.0) 10/01/24 10:35 RDW 14.0 % (11.6-16.5) 10/01/24 10:35 Plt Count 186 X10^3/uL (150.0-450.0) 10/01/24 10:35 Plt Count Comment Adequate (ADEQUATE) 10/01/24 10:35 MPV 8.3 fL (7.4-11.0) 10/01/24 10:35 Neut % (Auto) 92.0 % (42.0-75.0) H 10/01/24 10:35 Lymph % (Auto) 3.4 % (21.0-51.0) L 10/01/24 10:35 [place] % (Auto) 3.7 % (0.0-13.0) 10/01/24 10:35 Eos % (Auto) 0.2 % (0.9-2.9) L 10/01/24 10:35 Baso % (Auto) 0.7 % (0.2-1.0) 10/01/24 10:35 Neut # (Auto) 13.4 x10^3/uL (2.2-4.8) H 10/01/24 10:35 Lymph # (Auto) 0.5 X10^3/uL (1.3-2.9) L 10/01/24 10:35 [place] # (Auto) 0.5 x10^3/uL (0.3-0.8) 10/01/24 10:35 Eos # (Auto) 0.0 x10^3/uL (0.0-0.2) 10/01/24 10:35 Baso # (Auto) 0.1 X10^3/uL (0.0-0.1) 10/01/24 10:35 Absolute Nucleated RBC 0.0 /100WBC 10/01/24 10:35 Total Counted 100 10/01/24 10:35 Neutrophils % (Manual) 97 % (39-76) H 10/01/24 10:35 Lymphocytes % (Manual) 2 % (13-43) L 10/01/24 10:35 Monocytes % (Manual) 1 % (4-9) L 10/01/24 10:35 Plt Morphology Comment Normal (NORMAL) 10/01/24 10:35 RBC Morphology Normal (NORMAL) 10/01/24 10:35 Sodium 139 mmol/L (136-145) 10/01/24 10:35 Corrected Sodium 140 mmol/L (136-145) 10/01/24 10:35 Potassium 5.1 mmol/L (3.5-5.1) 10/01/24 10:35 Chloride 104 mmol/L (98-107) 10/01/24 10:35 Carbon Dioxide 25.1 mmol/L (21-32) 10/01/24 10:35 BUN 25 mg/dL (7-18) H 10/01/24 10:35 Creatinine 1.83 mg/dL (0.70-1.30) H 10/01/24 10:35 Est GFR (MDRD) Af Amer 45 (>60) L 10/01/24 10:35 Est GFR (MDRD) Non-Af 37 (>60) L 10/01/24 10:35 Glucose 144 mg/dL (65-99) H 10/01/24 10:35 Calcium 9.0 mg/dL (8.5-10.1) 10/01/24 10:35 Corrected Calcium 9.7 mg/dL (8.5-10.1) 10/01/24 10:35 Magnesium 1.5 mg/dL (2.0-2.9) L 10/01/24 10:35 Total Bilirubin 0.40 mg/dL (0.2-1.0) 10/01/24 10:35 AST 23 Units/L (15-37) 10/01/24 10:35 ALT 42 Units/L (12-78) 10/01/24 10:35 Alkaline Phosphatase 125 Units/L (46-116) H 10/01/24 10:35 Total Protein 7.3 g/dL (6.4-8.2) 10/01/24 10:35 Albumin 3.1 g/dL (3.4-5.0) L 10/01/24 10:35 Globulin 4.2 g/dL (2.5-4.5) 10/01/24 10:35 Albumin/Globulin Ratio 0.7 Ratio (1.1-2.1) L 10/01/24 10:35 Amylase 107 Units/L (25-115) 10/01/24 10:35 Lipase 65 Units/L (16-77) 10/01/24 10:35 Specimen Type Clean catch urine 10/01/24 11:52 Urine Color Pale yellow (YELLOW) 10/01/24 11:52 Urine Appearance Clear (CLEAR) 10/01/24 11:52 Urine pH 5.0 (5.0 - 8.0) 10/01/24 11:52 Ur Specific [place] 1.020 (1.000-1.030) 10/01/24 11:52 Urine Protein 1+ (NEGATIVE) 10/01/24 11:52 Urine Glucose (UA) Negative (NEGATIVE) 10/01/24 11:52 Urine Ketones Negative (NEGATIVE) 10/01/24 11:52 Urine Blood Negative (NEGATIVE) 10/01/24 11:52 Urine Nitrite Negative (NEGATIVE) 10/01/24 11:52 Urine Bilirubin Negative (NEGATIVE) 10/01/24 11:52 Urine Urobilinogen Normal (NORMAL) 10/01/24 11:52 Ur Leukocyte Esterase Negative (NEGATIVE) 10/01/24 11:52 Urine RBC None seen /HPF (0-3) 10/01/24 11:52 Urine WBC 0-2 /HPF (0-5) 10/01/24 11:52 Ur Squamous Epith Cells Few /HPF (NEGATIVE) 10/01/24 11:52 Amorphous Sediment Trace /HPF (NEGATIVE) 10/01/24 11:52 Urine Bacteria Trace /HPF (NEGATIVE) 10/01/24 11:52 Urine Mucus Rare /HPF (NEGATIVE) 10/01/24 11:52 Ur Culture Indicated? No/not indicated 10/01/24 11:52 SARS-CoV-2 (PCR) Negative (NEGATIVE) 10/01/24 10:40 Influenza Type A (PCR) Negative (NEGATIVE) 10/01/24 10:40 Influenza Type B (PCR) Negative (NEGATIVE) 10/01/24 10:40 RSV (PCR) Negative (NEGATIVE) 10/01/24 10:40 Physical Exam Vital Signs: Vital Signs Temperature 99.6 F Temperature 98.0 F Pulse Rate [Right Brachial] 80 Pulse Rate [Right Brachial] 79 Respiratory Rate 16 Respiratory Rate 20 Respiratory Rate 18 Blood Pressure [Right Arm] 131/60 Blood Pressure [Right Arm] 138/63 O2 Sat by Pulse Oximetry 96 O2 Sat by Pulse Oximetry 97 Assessment/Plan (1) Acute kidney injury superimposed on CKD: Narrative Support Text: AMMY on CKD3a. IV fluids. Electrolyte replacement. Status: Acute (2) Generalized weakness: Narrative Support Text: Suspect secondary to dehydration. Supportive care Status: Acute (3) Hypomagnesemia: Narrative Support Text: See above. Status: Acute (4) Acute pain of right shoulder: Narrative Support Text: Plan to inject tomorrow. Status: Acute (5) COPD (chronic obstructive pulmonary disease): Qualifiers: COPD type: unspecified COPD Qualified Code(s): J44.9 - Chronic obstructive pulmonary disease, unspecified Narrative Support Text: Nebs as needed. Status: Chronic (6) Acute dehydration: Narrative Support Text: See above. Status: Acute
[2024-10-03] MEDS: LOVENOX INJ 40 MG SYR SC SCH (08:50)
--- NOTE | 2024-10-03 08:51 | NOTE.SOAP ---
Soap Note Note for Day of Date of Exam: 10/02/24 Subjective Data Subjective Data: Patient seen for a.m. rounds with nurse. Reports she feels much better. Has been able to transfer from bed to recliner without difficulty. Shoulder still very bothersome. Denies any breathing issues. Objective Data Objective Data: Elderly male in no acute distress. Legs 5/5 strength this morning. No d ifficulties with ambulation, sitting, or standing. Heart regular rate and rhythm. Lungs diminished but clear with strong speech. Right shoulder table tender with difficulties with abduction. RT shoulder injection: Bony landmarks identified. Needle Used to jarrett posterior injection site. Skin cleansed with alcohol. 27-gauge, 1.5 inch needle used to inject 40 mg of Kenalog and 2 cc of lidocaine. Hemostasis achieved with pressure and adhesive bandage. Patient tolerated procedure well. Rechecked 30 minutes later showed that his pain is greatly improved but not fully resolved. Range of motion was still about the same. Passive range of motion was better. Assessment Assessment: 1. Dehydration with AMMY-acute. Improving. Electrolytes look better this morning. Continue IV fluids. 2. Right shoulder pain-subacute. Injected today. Helping. Suspect deltoid versus supraspinatus injury. No MRI at this time as patient does not want proceed with surgery. 3. Simple chronic bronchitis-chronic. Continue as needed nebs.
[2024-10-03 08:52] VITALS: RESP 17
[2024-10-03] MEDS: TORADOL 30 MG VIAL IVP ONE (08:52)
[2024-10-03] MEDS: DECADRON INJ IVP ONE (08:52)
--- NOTE | 2024-10-03 10:04 | PCM.DCPLAN ---
DISCHARGE SUMMARY Admission Date Date of Admission: 10/01/24 Discharge Date Discharge Date: 10/03/24 Admission Diagnoses (1) Acute kidney injury superimposed on CKD: Status: Acute (2) Generalized weakness: Status: Acute (3) Hypomagnesemia: Status: Acute (4) Acute pain of right shoulder: Status: Acute (5) COPD (chronic obstructive pulmonary disease): Status: Chronic (6) Acute dehydration: Status: Acute Discharge Medications Discharge Medications: Home Medication List coenzyme Q10 30 mg capsule 30 mg PO QDAY 10/01/24 [History] folic acid 800 mcg tablet 0.8 mg PO QDAY 10/01/24 [History] multivitamin 1 tab PO QAM 10/01/24 [History] niacin 500 mg tablet 500 mg PO QDAY 10/01/24 [History] Prescriptions: Hospital Course Vital Signs: Vital Signs Temperature 97.7 F Temperature 98.0 F Pulse Rate [Right Brachial] 75 Pulse Rate [Right Brachial] 73 Respiratory Rate 17 Respiratory Rate 18 Blood Pressure [Right Arm] 123/60 Blood Pressure [Right Arm] 150/70 O2 Sat by Pulse Oximetry 94 O2 Sat by Pulse Oximetry 94 Latest Lab Results: Laboratory Last Values WBC 9.7 X10^3/uL (3.6-10.0) 10/03/24 05:30 RBC 4.14 X10^6/uL (4.7-6.0) L 10/03/24 05:30 Hgb 12.1 g/dL (13.5-18.0) L 10/03/24 05:30 Hct 35.2 % (42.0-54.0) L 10/03/24 05:30 MCV 85.2 fL (80.0-100.0) 10/03/24 05:30 MCH 29.1 pg (27.0-34.0) 10/03/24 05:30 MCHC 34.2 g/dL (33.0-35.0) 10/03/24 05:30 RDW 14.3 % (11.6-16.5) 10/03/24 05:30 Plt Count 131 X10^3/uL (150.0-450.0) L 10/03/24 05:30 Plt Count Comment Adequate (ADEQUATE) 10/01/24 10:35 MPV 9.0 fL (7.4-11.0) 10/03/24 05:30 Neut % (Auto) 67.1 % (42.0-75.0) 10/03/24 05:30 Lymph % (Auto) 19.3 % (21.0-51.0) L 10/03/24 05:30 [place] % (Auto) 12.9 % (0.0-13.0) 10/03/24 05:30 Eos % (Auto) 0.3 % (0.9-2.9) L 10/03/24 05:30 Baso % (Auto) 0.4 % (0.2-1.0) 10/03/24 05:30 Neut # (Auto) 6.5 x10^3/uL (2.2-4.8) H 10/03/24 05:30 Lymph # (Auto) 1.9 X10^3/uL (1.3-2.9) 10/03/24 05:30 [place] # (Auto) 1.3 x10^3/uL (0.3-0.8) H 10/03/24 05:30 Eos # (Auto) 0.0 x10^3/uL (0.0-0.2) 10/03/24 05:30 Baso # (Auto) 0.0 X10^3/uL (0.0-0.1) 10/03/24 05:30 Absolute Nucleated RBC 0.1 /100WBC 10/03/24 05:30 Total Counted 100 10/01/24 10:35 Neutrophils % (Manual) 97 % (39-76) H 10/01/24 10:35 Lymphocytes % (Manual) 2 % (13-43) L 10/01/24 10:35 Monocytes % (Manual) 1 % (4-9) L 10/01/24 10:35 Plt Morphology Comment Normal (NORMAL) 10/01/24 10:35 RBC Morphology Normal (NORMAL) 10/01/24 10:35 Sodium 138 mmol/L (136-145) 10/03/24 05:30 Corrected Sodium TNP 10/03/24 05:30 Potassium 4.3 mmol/L (3.5-5.1) 10/03/24 05:30 Chloride 107 mmol/L (98-107) 10/03/24 05:30 Carbon Dioxide 23.3 mmol/L (21-32) 10/03/24 05:30 BUN 16 mg/dL (7-18) 10/03/24 05:30 Creatinine 1.39 mg/dL (0.70-1.30) H 10/03/24 05:30 Est GFR (MDRD) Af Amer > 60 (>60) 10/03/24 05:30 Est GFR (MDRD) Non-Af 51 (>60) L 10/03/24 05:30 Glucose 108 mg/dL (65-99) H 10/03/24 05:30 Calcium 8.4 mg/dL (8.5-10.1) L 10/03/24 05:30 Corrected Calcium 9.6 mg/dL (8.5-10.1) 10/03/24 05:30 Magnesium 2.1 mg/dL (2.0-2.9) 10/03/24 05:30 Total Bilirubin 0.30 mg/dL (0.2-1.0) 10/03/24 05:30 AST 28 Units/L (15-37) 10/03/24 05:30 ALT 36 Units/L (12-78) 10/03/24 05:30 Alkaline Phosphatase 98 Units/L (46-116) 10/03/24 05:30 Total Protein 6.2 g/dL (6.4-8.2) L 10/03/24 05:30 Albumin 2.5 g/dL (3.4-5.0) L 10/03/24 05:30 Globulin 3.7 g/dL (2.5-4.5) 10/03/24 05:30 Albumin/Globulin Ratio 0.7 Ratio (1.1-2.1) L 10/03/24 05:30 Amylase 107 Units/L (25-115) 10/01/24 10:35 Lipase 65 Units/L (16-77) 10/01/24 10:35 Specimen Type Clean catch urine 10/02/24 17:45 Urine Color Pale yellow (YELLOW) 10/02/24 17:45 Urine Appearance Clear (CLEAR) 10/02/24 17:45 Urine pH 6.0 (5.0 - 8.0) 10/02/24 17:45 Ur Specific [place] 1.010 (1.000-1.030) 10/02/24 17:45 Urine Protein Negative (NEGATIVE) 10/02/24 17:45 Urine Glucose (UA) Negative (NEGATIVE) 10/02/24 17:45 Urine Ketones Negative (NEGATIVE) 10/02/24 17:45 Urine Blood Negative (NEGATIVE) 10/02/24 17:45 Urine Nitrite Negative (NEGATIVE) 10/02/24 17:45 Urine Bilirubin Negative (NEGATIVE) 10/02/24 17:45 Urine Urobilinogen Normal (NORMAL) 10/02/24 17:45 Ur Leukocyte Esterase Negative (NEGATIVE) 10/02/24 17:45 Urine RBC None seen /HPF (0-3) 10/01/24 11:52 Urine WBC 0-2 /HPF (0-5) 10/01/24 11:52 Ur Squamous Epith Cells Few /HPF (NEGATIVE) 10/01/24 11:52 Amorphous Sediment Trace /HPF (NEGATIVE) 10/01/24 11:52 Urine Bacteria Trace /HPF (NEGATIVE) 10/01/24 11:52 Urine Mucus Rare /HPF (NEGATIVE) 10/01/24 11:52 Ur Culture Indicated? No/not indicated 10/01/24 11:52 SARS-CoV-2 (PCR) Negative (NEGATIVE) 10/01/24 10:40 Influenza Type A (PCR) Negative (NEGATIVE) 10/01/24 10:40 Influenza Type B (PCR) Negative (NEGATIVE) 10/01/24 10:40 RSV (PCR) Negative (NEGATIVE) 10/01/24 10:40 Hospital Course: Patient admitted due to fall at home with leg weakness. Found to be dehydrated with an AMMY. Also with lingering right shoulder pain after fall 2 weeks ago. Right shoulder responded well to an injection. He does agree to have home physical therapy come out and help him with his legs and his shoulder. AMMY resolved with IV fluids. Leg weakness is also resolved. Did have a mild COPD exacerbation this morning with wheezing heard on auscultation. He responded well to nebs and a steroid injection. Also had a Toradol shot due to a mild headache. Discharged home in improved, stable condition with instructions to use his home O2 and nebulizer, participate in home physical therapy, and no medication changes.
[2024-10-03] MEDS: LEXAPRO ONE (10:48)
[2024-10-03] MEDS: DUONEB 0.5 MG/3 MG (3 mL) NEB SCH (11:17)
[2024-10-03 11:30] VITALS: PULSE 67
== END 2024-10-03 12:40 | disposition home health service (06) ==
LOC: MED/SURG 09:53 → ER 09:53 → MED/SURG 14:39
PROVIDERS: ADMIT Family Medicine; ATTEND Family Medicine
DX: R53.1 Weakness; R74.8 Abnormal levels of other serum enzymes; R10.84 Generalized abdominal pain; Z91.81 History of falling; Z60.8 Other problems related to social environment; E86.0 Dehydration; J44.1 Chronic obstructive pulmonary disease with (acute) exacerbation; R11.2 Nausea with vomiting, unspecified; Z03.818 Encounter for observation for suspected exposure to other biological agents ruled out; E83.42 Hypomagnesemia; M25.511 Pain in right shoulder; N17.8 Other acute kidney failure; N18.9 Chronic kidney disease, unspecified

== ENCOUNTER 2024-10-03 17:26 | Inpatient (IN) ==
[2024-10-03 17:32] LABS: ABG BASE EXCESS -9.3 mmol/L (-2.0-2.0)
[2024-10-03 17:33] LABS: ABG ALLEN TEST POS; ABG HCO3 15.3 mmol/L (22-26)
[2024-10-03 18:05] LABS: BASOPHILS % (AUTO) 0.2 % (0.2-1.0); HEMATOCRIT 38.4 % (42.0-54.0); HEMOGLOBIN 12.9 g/dL (13.5-18.0); LYMPHOCYTES # (AUTO) 0.7 X10^3/uL (1.3-2.9); LYMPHOCYTES % (AUTO) 3.8 % (21.0-51.0); MEAN CORPUSCULAR HEMOGLOBIN 28.7 pg (27.0-34.0); MEAN CORPUSCULAR HGB CONC 33.7 g/dL (33.0-35.0); MEAN CORPUSCULAR VOLUME 85.1 fL (80.0-100.0); MEAN PLATELET VOLUME 8.5 fL (7.4-11.0); MONOCYTES % (AUTO) 5.9 % (0.0-13.0); NEUTROPHILS # (AUTO) 15.8 x10^3/uL (2.2-4.8); NEUTROPHILS % (AUTO) 90.1 % (42.0-75.0); PLATELET COUNT 163 X10^3/uL (150.0-450.0); RED BLOOD COUNT 4.51 X10^6/uL (4.7-6.0); WHITE BLOOD COUNT 17.5 X10^3/uL (3.6-10.0)
[2024-10-03 18:14] LABS: ALBUMIN 2.7 g/dL (3.4-5.0); CALCIUM 8.7 mg/dL (8.5-10.1); CARBON DIOXIDE 21.3 mmol/L (21-32); COR CA(FOR HYPOALB) 9.7 mg/dL (8.5-10.1); CREATININE 1.63 mg/dL (0.70-1.30); POTASSIUM 4.3 mmol/L (3.5-5.1); TOTAL PROTEIN 7.1 g/dL (6.4-8.2)
[2024-10-03 18:27] LABS: BAND NEUTROPHILS % 15 % (0-10); GIANT PLATELET RARE; MICROCYTOSIS SLIGHT; PLATELET MORPHOLOGY COMMENT ABNORMAL (NORMAL)
--- NOTE | 2024-10-03 18:53 | DR.SOBA ---
HPI Time Seen Time Seen by Provider: 10/03/24 18:53 Primary Care Physician Primary Care Physician: Jair/Carlos Complaints Chief Complaint:: Patient states that he was discharged from this hosptial today due to dehydration and an acute kidney injury. He states that after he got home he started having increased shortness of breath and tiredness. He states that he has home O2 that he uses as needed, and had to increase the oxygen to 3 liters while home. He states that he still felt short of breath, so family brought the patient from [place] in private vehicle without O2 to present to the ER. On arrival his saturation was 77 percent on room air. COVID-19 Coronavirus risk:travel/contact w/high risk person: No Has patient experienced Coronavirus symptoms: No Coronavirus symptoms experienced: Shortness of Breath Source History Provided: Patient Mode of Arrival Mode of Arrival: Wheelchair Timing Onset of Chief Complaint: 10/03/24 PMH PMH Past Medical History: Yes Past Medical History: COPD, Dementia, Depression and Hyperthyroidism Past Surgical History: Yes Surgical History: Ortho Surgery and Other Past Surgical History Comment: Kidney donor, Back Family History History of Family Medical Conditions: Yes Family Medical History: Diabetes Mellitus and Coronary Artery Disease Social History Does patient currently use any type of tobacco product: No Have you used tobacco products in the last 12 months: No Type of Tobacco Use: None Does any household member use tobacco: No Alcohol Use: None Do you use any recreational Drugs:: No Lives With: Family Lives Where: Home Travel Risk Coronavirus risk:travel/contact w/high risk person: No Has patient experienced Coronavirus symptoms: No Coronavirus symptoms experienced: Shortness of Breath Infectious screening In the last 2 months have you had wt loss of >10#?: NO Have you had fever, night sweats or hemotysis?: No Have you traveled outside the country in the last 6 months?: No Isolation: Standard PE Vital Signs Vitals: Vital Signs Temperature 97.9 F Pulse Rate 85 Respiratory Rate 24 Blood Pressure 178/84 O2 Sat by Pulse Oximetry 77 ROR Labs Reviewed 10/05/24 05:29 10/05/24 05:29 Laboratory: WBC 17.5 X10^3/uL (3.6-10.0) H 10/03/24 17:55 RBC 4.51 X10^6/uL (4.7-6.0) L 10/03/24 17:55 Hgb 12.9 g/dL (13.5-18.0) L 10/03/24 17:55 Hct 38.4 % (42.0-54.0) L 10/03/24 17:55 MCV 85.1 fL (80.0-100.0) 10/03/24 17:55 MCH 28.7 pg (27.0-34.0) 10/03/24 17:55 MCHC 33.7 g/dL (33.0-35.0) 10/03/24 17:55 RDW 14.0 % (11.6-16.5) 10/03/24 17:55 Plt Count 163 X10^3/uL (150.0-450.0) 10/03/24 17:55 Plt Count Comment Adequate (ADEQUATE) 10/03/24 17:55 MPV 8.5 fL (7.4-11.0) 10/03/24 17:55 Neut % (Auto) 90.1 % (42.0-75.0) H 10/03/24 17:55 Lymph % (Auto) 3.8 % (21.0-51.0) L 10/03/24 17:55 [place] % (Auto) 5.9 % (0.0-13.0) 10/03/24 17:55 Eos % (Auto) 0.0 % (0.9-2.9) L 10/03/24 17:55 Baso % (Auto) 0.2 % (0.2-1.0) 10/03/24 17:55 Neut # (Auto) 15.8 x10^3/uL (2.2-4.8) H 10/03/24 17:55 Lymph # (Auto) 0.7 X10^3/uL (1.3-2.9) L 10/03/24 17:55 [place] # (Auto) 1.0 x10^3/uL (0.3-0.8) H 10/03/24 17:55 Eos # (Auto) 0.0 x10^3/uL (0.0-0.2) 10/03/24 17:55 Baso # (Auto) 0.0 X10^3/uL (0.0-0.1) 10/03/24 17:55 Absolute Nucleated RBC 0.1 /100WBC 10/03/24 17:55 Total Counted 100 10/03/24 17:55 Neutrophils % (Manual) 75 % (39-76) 10/03/24 17:55 Band Neutrophils % 15 % (0-10) H 10/03/24 17:55 Lymphocytes % (Manual) 6 % (13-43) L 10/03/24 17:55 Monocytes % (Manual) 4 % (4-9) 10/03/24 17:55 Giant Platelets Rare 10/03/24 17:55 Plt Morphology Comment Abnormal (NORMAL) 10/03/24 17:55 RBC Morphology Abnormal (NORMAL) 10/03/24 17:55 Microcytosis Slight A 10/03/24 17:55 Sample Site Rra 10/03/24 17:30 ABG pH 7.330 (7.35-7.45) L 10/03/24 17:30 ABG pCO2 29.0 mmHg (35.0-45.0) L 10/03/24 17:30 ABG pO2 62.0 mmHg (80.0-100.0) L 10/03/24 17:30 ABG HCO3 15.3 mmol/L (22-26) L* 10/03/24 17:30 ABG O2 Saturation 89.0 % (90-100) L 10/03/24 17:30 ABG Base Excess -9.3 mmol/L (-2.0-2.0) L 10/03/24 17:30 Tuan Test Pos 10/03/24 17:30 A-a Gradient 101.0 mmHg 10/03/24 17:30 FiO2 28.0 10/03/24 17:30 Blood Gas Comments Pt jessica well eb/kg 10/03/24 17:30 Sodium 134 mmol/L (136-145) L 10/03/24 17:55 Corrected Sodium 136 mmol/L (136-145) 10/03/24 17:55 Potassium 4.3 mmol/L (3.5-5.1) 10/03/24 17:55 Chloride 101 mmol/L (98-107) 10/03/24 17:55 Carbon Dioxide 21.3 mmol/L (21-32) 10/03/24 17:55 BUN 16 mg/dL (7-18) 10/03/24 17:55 Creatinine 1.63 mg/dL (0.70-1.30) H 10/03/24 17:55 Est GFR (MDRD) Af Amer 52 (>60) L 10/03/24 17:55 Est GFR (MDRD) Non-Af 43 (>60) L 10/03/24 17:55 Glucose 184 mg/dL (65-99) H 10/03/24 17:55 Calcium 8.7 mg/dL (8.5-10.1) 10/03/24 17:55 Corrected Calcium 9.7 mg/dL (8.5-10.1) 10/03/24 17:55 Total Bilirubin 0.50 mg/dL (0.2-1.0) 10/03/24 17:55 AST 26 Units/L (15-37) 10/03/24 17:55 ALT 39 Units/L (12-78) 10/03/24 17:55 Alkaline Phosphatase 101 Units/L (46-116) 10/03/24 17:55 Creatine Kinase 363 Units/L (39-308) H 10/03/24 17:48 Troponin I High Sens 49.2 ng/L (4.0-60.0) 10/03/24 17:48 B-Natriuretic Peptide 548 pg/mL (0-79) H 10/03/24 17:48 Total Protein 7.1 g/dL (6.4-8.2) 10/03/24 17:55 Albumin 2.7 g/dL (3.4-5.0) L 10/03/24 17:55 Globulin 4.4 g/dL (2.5-4.5) 10/03/24 17:55 Albumin/Globulin Ratio 0.6 Ratio (1.1-2.1) L 10/03/24 17:55 Specimen Type Clean catch urine 10/03/24 00:28 Urine Color Straw (YELLOW) 10/03/24 00:28 Urine Appearance Clear (CLEAR) 10/03/24 00:28 Urine pH 5.0 (5.0 - 8.0) 10/03/24 00:28 Ur Specific [place] 1.010 (1.000-1.030) 10/03/24 00:28 Urine Protein Negative (NEGATIVE) 10/03/24 00:28 Urine Glucose (UA) Negative (NEGATIVE) 10/03/24 00:28 Urine Ketones Negative (NEGATIVE) 10/03/24 00:28 Urine Blood Negative (NEGATIVE) 10/03/24 00:28 Urine Nitrite Negative (NEGATIVE) 10/03/24 00:28 Urine Bilirubin Negative (NEGATIVE) 10/03/24 00:28 Urine Urobilinogen Normal (NORMAL) 10/03/24 00:28 Ur Leukocyte Esterase Negative (NEGATIVE) 10/03/24 00:28 Opioid Opioid Risk Tool Age ([place] box if 16-45): No History of Preadolescent Sexual Abuse: No Total: 0 Total Score Risk Category: Low Risk Copyright: Rich CARLOS predicting aberrant behaviors Discharge Plan Diagnosis Discharge Problem: Congestive heart failure Discharge Plan Patient Disposition: 09 ADMITTED INPATIENT Condition: Stable
[2024-10-03] MEDS: LASIX IVP ONE (20:00)
[2024-10-03] MEDS: ZOSYN VIAL 3.375 GRAMS 3.375 G in NS 100 ML IV 100 ML IV ONE (20:45)
[2024-10-03] MEDS ORDERED: NS 250 ML IV 25 ML IV PRN (22:04)
[2024-10-03 23:43] VITALS: BMI 26.3
--- NOTE | 2024-10-03 23:49 | RAD ---
EXAM: CHEST, 1 VIEW HISTORY: increased shortness of breath and tiredness.; COMPARISON: October 02, 2024 TECHNIQUE: Chest radiographic imaging, AP portable projection, 1 image FINDINGS: No cardiomegaly. Airspace disease in the right upper lobe, medial right lower lobe and lateral aspect of the left lung . No pleural effusion. No pneumothorax. No acute osseous abnormality. IMPRESSION: No significant interval acute cardiopulmonary changes. THIS IS AN ELECTRONICALLY VERIFIED FINAL REPORT 10/03/2024 11:46 PM - Electronically signed by Jorge Dean MD
[2024-10-04 00:46] LABS: BILIRUBIN,URINE NEGATIVE (NEGATIVE); BLOOD/HEMOGLOBIN,URINE NEGATIVE (NEGATIVE); GLUCOSE, URINE NEGATIVE (NEGATIVE); KETONES,URINE NEGATIVE (NEGATIVE); LEUKOCYTE ESTERASE ,URINE NEGATIVE (NEGATIVE); NITRITES,URINE NEGATIVE (NEGATIVE); PROTEIN,URINE NEGATIVE (NEGATIVE); UROBILINOGEN,URINE NORMAL (NORMAL)
[2024-10-04 00:49] LABS: APPEARANCE,URINE CLEAR (CLEAR); COLOR,URINE STRAW (YELLOW)
[2024-10-04] MEDS: NS 250 ML IV 25 ML IV PRN (05:26)
[2024-10-04] MEDS: ZOSYN VIAL 3.375 GRAMS 3.375 G in NS 100 ML IV 100 ML IV SCH (05:27)
[2024-10-04 05:39] LABS: BASOPHILS # (AUTO) 0.1 X10^3/uL (0.0-0.1); BASOPHILS % (AUTO) 0.6 % (0.2-1.0); HEMATOCRIT 37.1 % (42.0-54.0); HEMOGLOBIN 12.7 g/dL (13.5-18.0); LYMPHOCYTES # (AUTO) 1.5 X10^3/uL (1.3-2.9); LYMPHOCYTES % (AUTO) 7.4 % (21.0-51.0); MEAN CORPUSCULAR HEMOGLOBIN 28.6 pg (27.0-34.0); MEAN CORPUSCULAR HGB CONC 34.3 g/dL (33.0-35.0); MEAN CORPUSCULAR VOLUME 83.4 fL (80.0-100.0); MEAN PLATELET VOLUME 8.7 fL (7.4-11.0); MONOCYTES # (AUTO) 1.5 x10^3/uL (0.3-0.8); MONOCYTES % (AUTO) 7.6 % (0.0-13.0); NEUTROPHILS % (AUTO) 84.4 % (42.0-75.0); PLATELET COUNT 167 X10^3/uL (150.0-450.0); RED BLOOD COUNT 4.45 X10^6/uL (4.7-6.0); RED CELL DISTRIBUTION WIDTH 13.9 % (11.6-16.5); WHITE BLOOD COUNT 20.2 X10^3/uL (3.6-10.0)
[2024-10-04 05:47] LABS: INR 1.34 (0.8-1.3)
[2024-10-04 05:51] LABS: ALBUMIN 2.6 g/dL (3.4-5.0); CARBON DIOXIDE 24.3 mmol/L (21-32); COR CA(FOR HYPOALB) 10.1 mg/dL (8.5-10.1); CREATININE 1.53 mg/dL (0.70-1.30); MAGNESIUM 1.9 mg/dL (2.0-2.9); POTASSIUM 4.5 mmol/L (3.5-5.1); TOTAL PROTEIN 6.8 g/dL (6.4-8.2)
--- NOTE | 2024-10-04 08:35 | EKG ---
Test Reason : elevated troponin Blood Pressure : */* mmHG Vent. Rate : 83 BPM Atrial Rate : 83 BPM P-R Int : 152 ms QRS Dur : 68 ms QT Int : 360 ms P-R-T Axes : 57 12 42 degrees QTc Int : 423 ms Normal sinus rhythm Normal ECG When compared with ECG of 13-NOV-2023 11:09, Non-specific change in ST segment in Lateral leads Confirmed by Kwesi Feliciano MD ([id number]) on 10/07/2024 7:50:37 AM Referred By: Confirmed By: Kwesi Feliciano MD
[2024-10-04] MEDS: PLAVIX PO ONE (08:45)
[2024-10-04] MEDS: ASPIRIN PO ONE (08:45)
[2024-10-04] MEDS: LEVAQUIN TAB 500 MG PO SCH (08:48)
[2024-10-04] MEDS: COREG TAB 6.25 MG PO SCH (08:48)
[2024-10-04] MEDS: COZAAR PO SCH (08:48)
[2024-10-04] MEDS: LASIX IVP SCH (08:49)
[2024-10-04] MEDS ORDERED: PULMICORT NEB TX 0.5 MG NEB SCH (09:00)
[2024-10-04] MEDS ORDERED: DUONEB 0.5 MG/3 MG (3 mL) NEB SCH ×2 (09:00)
[2024-10-04] MEDS: DUONEB 0.5 MG/3 MG (3 mL) NEB SCH (09:04)
[2024-10-04] MEDS: PULMICORT NEB TX 0.5 MG NEB SCH (09:04)
--- NOTE | 2024-10-04 11:35 | DR.H&P ---
H&P History & Physical for Day of: H&P Date: 10/04/24 Chief Complaint Chief Complaint: Shortness of History of Present Illness History of Present Illness: Patient discharged yesterday after admission due to leg weakness and AMMY. On day of discharge she did seem to have a COPD exacerbation that responded to albuterol. He had gone without a neb for approximately 24 hours before then. He had had a steroid injection in his right shoulder on 10/02. He had 30 mg of Toradol and 6 mg of Decadron, both IM, on day of discharge, 10/03. Once he arrived at home he did start on his home O2 and started using his own nebulizer. He progressively worsened to the point that he was having to use his pulmonary rehab techniques to include pursed lip breathing. That worsened and they decided come back to the ER. In the ER he was found to be hypoxemic, low bicarb, elevated BNP, elevated CK, and normal troponin. He was admitted for CHF versus COPD exacerbation and placed on DuoNebs. He was continued on his oral prednisone along with doxycycline. This morning, white count 20,000 (thought to be due to steroids), troponin mil dly elevated, breathing feels better, kidney function at baseline, and still feeling very weak. Appetite is good. Patient feels like he breathes better when he sitting up. He does admit that his abdomen seems more distended. He feels like he is coughing more but is not very productive. Chest x-ray consistent with old scarring. He reports his next cardiac follow-up is in December with his programming specialist out of [place]. Does not have a pacemaker/defibrillator, stents, or history of cardiac issues. They are watching his heart due to his history of lung issues. ROS: Abdominal distention, weakness, cough, dyspnea, right shoulder pain. 12 point ROS otherwise negative. Vitals, labs, and imaging reviewed. PE: Elderly male in no acute distress. Appears tired. EOMI. NCAT. Hearing intact conversation. Neck full range of motion with no lymphadenopathy. Heart regular rate and rhythm with no murmur. Lungs coarse with faint wheezing throughout. Sounds better than yesterday morning. Belly is soft, nontender, with normal bowel sounds. His abdomen is more distended than last admission. No edema of his extremities or face. Range of motion limited in the right shoulder but better than 2 days ago. Range of motion of both legs and LUE is appropriate. Mood and affect are appropriate for situation. Past Medical History Past Medical History: COPD, Dementia, Depression and Hyperthyroidism Past Surgical History Surgical History: Other Family History Family Medical History: Diabetes Mellitus and Coronary Artery Disease Family History Comment: Sister, , Parkinson. Social History Does patient currently use any type of tobacco product: No Have you used tobacco products in the last 12 months: No Type of Tobacco Use: None Does any household member use tobacco: No Alcohol Use: None Medications Home Medications: Home Medications Medication Instructions Recorded Confirmed Type aspirin 81 mg chewable tablet 81 mg PO DAILY 05/02/13 10/03/24 History tamsulosin 0.4 mg capsule 0.4 mg PO QAM 05/02/13 10/03/24 History memantine 28 mg capsule 1 cap PO DAILY 12/26/16 10/03/24 History sprinkle,extended release 24hr (Namenda XR) donepezil 10 mg tablet 10 mg PO DAILY 03/19/19 10/03/24 History escitalopram oxalate 10 mg tablet 10 mg PO DAILY 12/17/19 10/03/24 History levothyroxine 100 mcg tablet 100 mcg PO DAILY 12/17/19 10/03/24 History coenzyme Q10 30 mg capsule 30 mg PO QDAY 10/01/24 10/03/24 History folic acid 800 mcg tablet 0.8 mg PO QDAY 10/01/24 10/03/24 History multivitamin 1 tab PO QAM 10/01/24 10/03/24 History niacin 500 mg tablet 500 mg PO QDAY 10/01/24 10/03/24 History Allergies Allergies Allergy/AdvReac Type Severity Reaction Status Date / Time [id number] Reductase AdvReac Verified 10/01/24 15:01 Inhibitor Labs 10/04/24 05:10 10/04/24 05:10 Labs: Laboratory WBC 20.2 X10^3/uL (3.6-10.0) H 10/04/24 05:10 RBC 4.45 X10^6/uL (4.7-6.0) L 10/04/24 05:10 Hgb 12.7 g/dL (13.5-18.0) L 10/04/24 05:10 Hct 37.1 % (42.0-54.0) L 10/04/24 05:10 MCV 83.4 fL (80.0-100.0) 10/04/24 05:10 MCH 28.6 pg (27.0-34.0) 10/04/24 05:10 MCHC 34.3 g/dL (33.0-35.0) 10/04/24 05:10 RDW 13.9 % (11.6-16.5) 10/04/24 05:10 Plt Count 167 X10^3/uL (150.0-450.0) 10/04/24 05:10 Plt Count Comment Adequate (ADEQUATE) 10/03/24 17:55 MPV 8.7 fL (7.4-11.0) 10/04/24 05:10 Neut % (Auto) 84.4 % (42.0-75.0) H 10/04/24 05:10 Lymph % (Auto) 7.4 % (21.0-51.0) L 10/04/24 05:10 [place] % (Auto) 7.6 % (0.0-13.0) 10/04/24 05:10 Eos % (Auto) 0.0 % (0.9-2.9) L 10/04/24 05:10 Baso % (Auto) 0.6 % (0.2-1.0) 10/04/24 05:10 Neut # (Auto) 17.0 x10^3/uL (2.2-4.8) H 10/04/24 05:10 Lymph # (Auto) 1.5 X10^3/uL (1.3-2.9) 10/04/24 05:10 [place] # (Auto) 1.5 x10^3/uL (0.3-0.8) H 10/04/24 05:10 Eos # (Auto) 0.0 x10^3/uL (0.0-0.2) 10/04/24 05:10 Baso # (Auto) 0.1 X10^3/uL (0.0-0.1) 10/04/24 05:10 Absolute Nucleated RBC 0.1 /100WBC 10/04/24 05:10 Total Counted 100 10/03/24 17:55 Neutrophils % (Manual) 75 % (39-76) 10/03/24 17:55 Band Neutrophils % 15 % (0-10) H 10/03/24 17:55 Lymphocytes % (Manual) 6 % (13-43) L 10/03/24 17:55 Monocytes % (Manual) 4 % (4-9) 10/03/24 17:55 Giant Platelets Rare 10/03/24 17:55 Plt Morphology Comment Abnormal (NORMAL) 10/03/24 17:55 RBC Morphology Abnormal (NORMAL) 10/03/24 17:55 Microcytosis Slight A 10/03/24 17:55 PT 16.2 SECONDS (11.8-14.3) 10/04/24 05:10 INR Target Range - 10/04/24 05:10 INR 1.34 (0.8-1.3) H 10/04/24 05:10 APTT 31.9 SECONDS (22.9-36.5) 10/04/24 05:10 PTT Comment - 10/04/24 05:10 Sample Site Rra 10/03/24 17:30 ABG pH 7.330 (7.35-7.45) L 10/03/24 17:30 ABG pCO2 29.0 mmHg (35.0-45.0) L 10/03/24 17:30 ABG pO2 62.0 mmHg (80.0-100.0) L 10/03/24 17:30 ABG HCO3 15.3 mmol/L (22-26) L* 10/03/24 17:30 ABG O2 Saturation 89.0 % (90-100) L 10/03/24 17:30 ABG Base Excess -9.3 mmol/L (-2.0-2.0) L 10/03/24 17:30 Tuan Test Pos 10/03/24 17:30 A-a Gradient 101.0 mmHg 10/03/24 17:30 FiO2 28.0 10/03/24 17:30 Blood Gas Comments Pt jessica well eb/kg 10/03/24 17:30 Sodium 136 mmol/L (136-145) 10/04/24 05:10 Corrected Sodium 136 mmol/L (136-145) 10/04/24 05:10 Potassium 4.5 mmol/L (3.5-5.1) 10/04/24 05:10 Chloride 103 mmol/L (98-107) 10/04/24 05:10 Carbon Dioxide 24.3 mmol/L (21-32) 10/04/24 05:10 BUN 19 mg/dL (7-18) H 10/04/24 05:10 Creatinine 1.53 mg/dL (0.70-1.30) H 10/04/24 05:10 Est GFR (MDRD) Af Amer 56 (>60) L 10/04/24 05:10 Est GFR (MDRD) Non-Af 46 (>60) L 10/04/24 05:10 Glucose 119 mg/dL (65-99) H 10/04/24 05:10 Calcium 9.0 mg/dL (8.5-10.1) 10/04/24 05:10 Corrected Calcium 10.1 mg/dL (8.5-10.1) 10/04/24 05:10 Magnesium 1.9 mg/dL (2.0-2.9) L 10/04/24 05:10 Total Bilirubin 0.70 mg/dL (0.2-1.0) 10/04/24 05:10 AST 29 Units/L (15-37) 10/04/24 05:10 ALT 33 Units/L (12-78) 10/04/24 05:10 Alkaline Phosphatase 99 Units/L (46-116) 10/04/24 05:10 Creatine Kinase 363 Units/L (39-308) H 10/03/24 17:48 Troponin I High Sens 49.2 ng/L (4.0-60.0) 10/03/24 17:48 B-Natriuretic Peptide 548 pg/mL (0-79) H 10/03/24 17:48 Total Protein 6.8 g/dL (6.4-8.2) 10/04/24 05:10 Albumin 2.6 g/dL (3.4-5.0) L 10/04/24 05:10 Globulin 4.2 g/dL (2.5-4.5) 10/04/24 05:10 Albumin/Globulin Ratio 0.6 Ratio (1.1-2.1) L 10/04/24 05:10 Specimen Type Clean catch urine 10/03/24 00:28 Urine Color Straw (YELLOW) 10/03/24 00:28 Urine Appearance Clear (CLEAR) 10/03/24 00:28 Urine pH 5.0 (5.0 - 8.0) 10/03/24 00:28 Ur Specific [place] 1.010 (1.000-1.030) 10/03/24 00:28 Urine Protein Negative (NEGATIVE) 10/03/24 00:28 Urine Glucose (UA) Negative (NEGATIVE) 10/03/24:28 Urine Ketones Negative (NEGATIVE) 10/03/24 00: Urine Blood Negative (NEGATIVE) 10/03/24 00: Urine Nitrite Negative (NEGATIVE) 10/03/24 00: Urine Bilirubin Negative (NEGATIVE) 10/03/24: Urine Urobilinogen Normal (NORMAL) 10/03/24 00:28 Ur Leukocyte Esterase Negative (NEGATIVE) 10/03/24: Physical Exam Vital Signs: Vital Signs Temperature 98.1 F Pulse Rate [Left Brachial] 89 Respiratory Rate 20 Blood Pressure [Right Arm] 169/81 O2 Sat by Pulse Oximetry 92 Assessment/Plan (1) Acute exacerbation of chronic obstructive pulmonary disease (COPD): Narrative Support Text: Steroids, nebs, Levaquin. Stop doxycycline. Continue O2 supplementation Status: Acute (2) Chronic kidney disease (CKD): Qualifiers: Chronic kidney disease stage: stage 3 (moderate) Chronic kidney disease stage 3 subtype: stage 3b (GFR 30-44) Qualified Code(s): N18.32 - Chronic kidney disease, stage 3b Narrative Support Text: Appears at baseline. Gentle diuresis along with general hydration. Status: Chronic (3) Generalized weakness: Narrative Support Text: At this point it seems more respiratory then renal/hydration. Status: Acute (4) Acute pain of right shoulder: Narrative Support Text: Improving. Will need outpatient PT Status: Acute (5) Abdominal distension: Narrative Support Text: KUB today. Constipation versus volume overload Status: Acute (6) Elevated troponin: Narrative Support Text: Demand ischemia versus CAD. Will get an echo. Does not have a history of heart failure but BNP elevated. Will also continue Lasix per admission orders. Repeat troponin was down. Updating EKG as well. No cardiology consult in the hospital at this time but will be quick to transfer. Status: Acute
[2024-10-05 06:27] LABS: BASOPHILS # (AUTO) 0.1 X10^3/uL (0.0-0.1); BASOPHILS % (AUTO) 0.4 % (0.2-1.0); HEMATOCRIT 38.6 % (42.0-54.0); HEMOGLOBIN 13.2 g/dL (13.5-18.0); LYMPHOCYTES # (AUTO) 2.9 X10^3/uL (1.3-2.9); LYMPHOCYTES % (AUTO) 13.1 % (21.0-51.0); MEAN CORPUSCULAR HEMOGLOBIN 28.5 pg (27.0-34.0); MEAN CORPUSCULAR HGB CONC 34.3 g/dL (33.0-35.0); MEAN CORPUSCULAR VOLUME 83.1 fL (80.0-100.0); MEAN PLATELET VOLUME 9.1 fL (7.4-11.0); MONOCYTES # (AUTO) 2.1 x10^3/uL (0.3-0.8); MONOCYTES % (AUTO) 9.7 % (0.0-13.0); NEUTROPHILS # (AUTO) 16.9 x10^3/uL (2.2-4.8); NEUTROPHILS % (AUTO) 76.8 % (42.0-75.0); PLATELET COUNT 186 X10^3/uL (150.0-450.0); RED BLOOD COUNT 4.64 X10^6/uL (4.7-6.0); RED CELL DISTRIBUTION WIDTH 13.8 % (11.6-16.5); WHITE BLOOD COUNT 22.1 X10^3/uL (3.6-10.0)
--- NOTE | 2024-10-05 06:32 | RAD ---
EXAM: KUB HISTORY: Abdominal distention COMPARISON: None FINDINGS: Abdominal gas pattern is nonspecific and nonobstructive. No abnormal masses or abnormal calcificat ions are identified. Regional skeleton is intact. IMPRESSION: Unremarkable KUB THIS IS AN ELECTRONICALLY VERIFIED FINAL REPORT 10/05/2024 6:29 AM - Electronically signed by Ervin Tierney MD
[2024-10-05 06:38] LABS: ALBUMIN 2.5 g/dL (3.4-5.0); CALCIUM 9.4 mg/dL (8.5-10.1); CARBON DIOXIDE 26.5 mmol/L (21-32); COR CA(FOR HYPOALB) 10.6 mg/dL (8.5-10.1); CREATININE 1.76 mg/dL (0.70-1.30); MAGNESIUM 1.6 mg/dL (2.0-2.9); POTASSIUM 3.4 mmol/L (3.5-5.1); TOTAL PROTEIN 6.8 g/dL (6.4-8.2)
[2024-10-05] MEDS ORDERED: CONSULT PHARMACY - POTASSIUM & MAGNESIUM XX SCH (07:00)
[2024-10-05 07:04] LABS: BAND NEUTROPHILS % 6 % (0-10); PLATELET MORPHOLOGY COMMENT NORMAL (NORMAL)
--- NOTE | 2024-10-05 08:30 | NOTE.SOAP ---
Soap Note Note for Day of Date of Exam: 10/05/24 Subjective Data Subjective Data: Patient coughing more this morning. Ros[place] like he rest a little better last night but still with a lot of up-and-down due to urination. After PureWick was placed he rested better. Breathing feels better other than severe cough this morning. His shoulders are sore after trying to set himself up last night to cough. Ribs and belly are sore from coughing. White count slightly increased from yesterday but so is serum creatinine. Mild hypokalemia this morning. Objective Data Objective Data: Elderly male in no acute distress. He is coughing. Head NCAT. Hearing intact conversation. EOMI. Less wheezing this morning than yesterday with good air movement. Difficult taking a deep breath as he is forced cough. Heart regular rate and rhythm. Bowel sounds are present and belly is soft and nontender. Mood and affect are appropriate. Assessment Assessment: 1. COPD exacerbation with Klebsiella and Moraxella catarrhalis. Continue Levaquin but add on Zosyn due to slight increase in white count. He does meet sepsis criteria due to fever, leukocytosis, COPD exacerbation. Continue nebs, O2 supplementation, and PT. Will add on Robitussin DM during the day and Tussionex at night. 2. Abdominal wall strain with costochondritis. IV Toradol 15 mg x 1 today along with Decadron 4 mg x 1 IV. Also will add on the cough medications. 3. Mild diastolic dysfunction on echo. This is likely secondary to his COPD and his elevated blood pressures. Will continue to monitor closely. Decrease Lasix to 20mg daily.
[2024-10-05] MEDS: ROBITUSSIN DM PO SCH (09:15)
[2024-10-05] MEDS: KLOR-CON 10 MEQ TAB PO NR (09:15)
[2024-10-05] MEDS: DECADRON INJ IVP ONE (09:16)
[2024-10-05] MEDS: TORADOL 15 MG VIAL IVP ONE (09:16)
[2024-10-05] MEDS: PLAVIX PO SCH (09:16)
[2024-10-05] MEDS: ASPIRIN PO SCH (09:16)
[2024-10-05] MEDS: LASIX IVP SCH (09:18)
[2024-10-05] MEDS: ZOSYN VIAL 3.375 GRAMS 3.375 G in NS 100 ML IV 100 ML IV SCH (09:18)
[2024-10-05] MEDS: LEVAQUIN PREMIX IV 750 MG 750 MG/150 ML BAG IV SCH (09:19)
[2024-10-05] MEDS: TUSSIONEX PENNKINETIC SUSP PO SCH (21:10)
[2024-10-06 06:00] LABS: BASOPHILS # (AUTO) 0.1 X10^3/uL (0.0-0.1); BASOPHILS % (AUTO) 0.4 % (0.2-1.0); HEMATOCRIT 36.1 % (42.0-54.0); HEMOGLOBIN 12.3 g/dL (13.5-18.0); LYMPHOCYTES % (AUTO) 9.4 % (21.0-51.0); MEAN CORPUSCULAR HEMOGLOBIN 28.6 pg (27.0-34.0); MEAN CORPUSCULAR HGB CONC 34.1 g/dL (33.0-35.0); MEAN CORPUSCULAR VOLUME 83.9 fL (80.0-100.0); MEAN PLATELET VOLUME 8.9 fL (7.4-11.0); MONOCYTES # (AUTO) 2.1 x10^3/uL (0.3-0.8); MONOCYTES % (AUTO) 9.8 % (0.0-13.0); NEUTROPHILS # (AUTO) 16.8 x10^3/uL (2.2-4.8); NEUTROPHILS % (AUTO) 80.4 % (42.0-75.0); PLATELET COUNT 177 X10^3/uL (150.0-450.0); RED CELL DISTRIBUTION WIDTH 13.7 % (11.6-16.5); WHITE BLOOD COUNT 20.9 X10^3/uL (3.6-10.0)
[2024-10-06 06:32] LABS: ALBUMIN 2.1 g/dL (3.4-5.0); CALCIUM 9.1 mg/dL (8.5-10.1); CARBON DIOXIDE 25.8 mmol/L (21-32); COR CA(FOR HYPOALB) 10.6 mg/dL (8.5-10.1); CREATININE 1.76 mg/dL (0.70-1.30); MAGNESIUM 1.9 mg/dL (2.0-2.9); TOTAL PROTEIN 6.5 g/dL (6.4-8.2)
[2024-10-06 06:57] LABS: BAND NEUTROPHILS % 1 % (0-10); PLATELET MORPHOLOGY COMMENT NORMAL (NORMAL)
[2024-10-06] MEDS ORDERED: CONSULT PHARMACY - POTASSIUM & MAGNESIUM XX SCH (07:00)
--- NOTE | 2024-10-06 09:34 | NOTE.SOAP ---
Soap Note Note for Day of Date of Exam: 10/06/24 Subjective Data Subjective Data: Patient seen for a.m. rounds. White count stable. Hemoglobin stable. O2 stable. Coughing improved. Still feels weak but better. Rested slightly better last night. Wants to get up with PT today. Does report some nasal congestion. Objective Data Objective Data: Elderly male in no acute distress. Lungs diminished with faint wheezing, greatly improved overall. Heart regular rate and rhythm. Mood and affect are appropriate. No edema of his extremities or face. Bowel sounds are present and belly is soft. Assessment Assessment: 1. COPD exacerbation, acute. Improving. Continue nebs, Levaquin, and as needed steroids. 2. Acute on chronic hypoxemic respiratory failure, acute. Resolved. Continue current. 3. Generalized weakness due to deconditioning, acute. Start physical therapy today. Plan for discharge home tomorrow with home health services.
[2024-10-06] MEDS: MAG-OX TAB PO SCH (10:01)
[2024-10-06] MEDS: FLONASE NASAL SPRAY ENOSTRIL SCH (10:03)
[2024-10-06] MEDS: COLACE CAP 100 MG PO PRN (11:52)
[2024-10-06] MEDS: MILK OF MAGNESIA PO PRN (11:52)
--- NOTE | 2024-10-07 01:13 | RAD ---
PROCEDURE: Chest X-ray 1 View. HISTORY: SOB, BRONCHITIS ; COPD . TECHNIQUE: AP portable view. COMPARISON: October 03 this year. TECHNICAL QUALITY: Satisfactory. FINDINGS: Normal size heart. Mediastinum and hilar regions show no masses or lymphadenopathy. Normal central vascularity. Improving pneumonia right upper lobe and left mid lung field laterally with decreased density to the consolidation. No pleural fluid or pneumothorax. No acute bony abnormality. IMPRESSION: Improving pneumonia bilaterally. THIS IS AN ELECTRONICALLY VERIFIED FINAL REPORT 10/07/2024 1:09 AM - Electronically signed by Sarkis Cobb MD
[2024-10-07 06:17] LABS: ALANINE AMINOTRANSFERASE 49 Units/L (12-78); ALKALINE PHOSPHATASE 107 Units/L (46-116); ASPARTATE AMINO TRANSFERASE 37 Units/L (15-37); BLOOD UREA NITROGEN 39 mg/dL (7-18); CALCIUM 9.2 mg/dL (8.5-10.1); CARBON DIOXIDE 25.2 mmol/L (21-32); CHLORIDE 99 mmol/L (98-107); COR CA(FOR HYPOALB) 10.8 mg/dL (8.5-10.1); CREATININE 1.87 mg/dL (0.70-1.30); GLUCOSE 98 mg/dL (65-99); POTASSIUM 3.7 mmol/L (3.5-5.1); SODIUM 134 mmol/L (136-145); TOTAL PROTEIN 6.4 g/dL (6.4-8.2); eGFR NON BLACK RACES 36 (>60)
[2024-10-07 06:18] LABS: BASOPHILS % (AUTO) 0.1 % (0.2-1.0); EOSINOPHILS % (AUTO) 0.3 % (0.9-2.9); HEMATOCRIT 35.1 % (42.0-54.0); LYMPHOCYTES # (AUTO) 2.8 X10^3/uL (1.3-2.9); MEAN CORPUSCULAR HEMOGLOBIN 28.7 pg (27.0-34.0); MEAN CORPUSCULAR HGB CONC 34.3 g/dL (33.0-35.0); MEAN CORPUSCULAR VOLUME 83.7 fL (80.0-100.0); MONOCYTES # (AUTO) 1.9 x10^3/uL (0.3-0.8); MONOCYTES % (AUTO) 11.2 % (0.0-13.0); NEUTROPHILS # (AUTO) 11.9 x10^3/uL (2.2-4.8); NEUTROPHILS % (AUTO) 71.4 % (42.0-75.0); PLATELET COUNT 203 X10^3/uL (150.0-450.0); RED BLOOD COUNT 4.19 X10^6/uL (4.7-6.0); RED CELL DISTRIBUTION WIDTH 13.4 % (11.6-16.5); WHITE BLOOD COUNT 16.7 X10^3/uL (3.6-10.0)
[2024-10-07] MEDS: DECADRON INJ IVP ONE (06:38)
[2024-10-07] MEDS: DECADRON TAB PO SCH (09:19)
[2024-10-07] MEDS: MAG-OX TAB ONE (10:33)
[2024-10-08] MEDS: NS 250 ML IV 250 ML IV ONE (05:32)
[2024-10-08 05:35] LABS: BASOPHILS # (AUTO) 0.1 X10^3/uL (0.0-0.1); BASOPHILS % (AUTO) 0.6 % (0.2-1.0); EOSINOPHILS % (AUTO) 0.1 % (0.9-2.9); HEMATOCRIT 35.8 % (42.0-54.0); MEAN CORPUSCULAR HEMOGLOBIN 28.5 pg (27.0-34.0); MEAN CORPUSCULAR HGB CONC 33.6 g/dL (33.0-35.0); MEAN CORPUSCULAR VOLUME 84.6 fL (80.0-100.0); MONOCYTES # (AUTO) 1.9 x10^3/uL (0.3-0.8); MONOCYTES % (AUTO) 11.4 % (0.0-13.0); NEUTROPHILS # (AUTO) 12.4 x10^3/uL (2.2-4.8); NEUTROPHILS % (AUTO) 75.9 % (42.0-75.0); PLATELET COUNT 219 X10^3/uL (150.0-450.0); RED BLOOD COUNT 4.23 X10^6/uL (4.7-6.0); RED CELL DISTRIBUTION WIDTH 13.5 % (11.6-16.5); WHITE BLOOD COUNT 16.3 X10^3/uL (3.6-10.0)
[2024-10-08 05:47] LABS: ALBUMIN 1.9 g/dL (3.4-5.0); CALCIUM 9.4 mg/dL (8.5-10.1); CARBON DIOXIDE 25.5 mmol/L (21-32); COR CA(FOR HYPOALB) 11.1 mg/dL (8.5-10.1); CREATININE 1.74 mg/dL (0.70-1.30); POTASSIUM 3.7 mmol/L (3.5-5.1); TOTAL PROTEIN 6.6 g/dL (6.4-8.2)
[2024-10-08 06:19] LABS: BAND NEUTROPHILS % 1 % (0-10); PLATELET MORPHOLOGY COMMENT NORMAL (NORMAL)
[2024-10-08] MEDS: MAG-OX TAB PO SCH (09:21)
--- NOTE | 2024-10-08 12:25 | PCM.PROG ---
Progress Note Progress Note for Day of Date of Exam: 10/08/24 Subjective Subjective: Patient is a 89-year-old male admitted for COPD exacerbation, deconditioning/weakness. This morning he is resting comfortably in bed. No acute events overnight. He is requiring 3 L nasal cannula supplemental oxygen. Labs/imaging: WBC 16.3, hemoglobin 12, platelets 219, sodium 137, potassium 3.7, creatinine 1.74, glucose 167, chest x-ray performed yesterday did show improving pneumonia. Will continue with IV antibiotics Levaquin. Scheduled bronchodilators. Otherwise continue with current treatment plan. Continue closely monitor and follow-up labs/imaging. Past Medical Family Social History Allergies: Allergies [id number] Reductase Inhibitor Adverse Reaction (Verified 10/01/24 15:01) pain in legs Review of Systems ROS changes noted: see HPI Vital Signs and I&O's Vital Signs: Vital Signs Temperature 97.6 F Temperature 98.2 F Pulse Rate [Left Brachial] 64 Pulse Rate [Left Brachial] 76 Pulse Rate 66 Respiratory Rate 18 Respiratory Rate 18 Blood Pressure [Left Arm] 117/59 Blood Pressure [Left Arm] 136/68 O2 Sat by Pulse Oximetry 97 O2 Sat by Pulse Oximetry 92 O2 Sat by Pulse Oximetry 98 Intake and Output: Intake & Output 10/05/24 10/06/24 10/07/24 10/08/24 23:59 23:59 23:59 23:59 Intake Total 1871 / 1871 1762 / 1762 1568 / 1568 182 / 182 Output Total 601 / 601 1502 / 1502 1402 / 1402 1 / Balance 1270 / 1270 260 / 260 166 / 166 181 / 181 Physical Exam Oriented: Normal Eyes: Normal Nose: Normal Respiratory: Diminished Cardiovascular: Normal Auscultation: Bowel Sounds: Normal Palpation: Normal Tenderness: Normal Skin: Decreased [place] Musculoskeletal: Normal Psychiatric: Normal Mood Description: Calm Speech Pattern: Clear and Appropriate Laboratory and Diagnostics 10/08/24 05:18 10/08/24 05:18 Labs: Laboratory WBC 16.3 X10^3/uL (3.6-10.0) H 10/08/24 05:18 RBC 4.23 X10^6/uL (4.7-6.0) L 10/08/24 05:18 Hgb 12.0 g/dL (13.5-18.0) L 10/08/24 05:18 Hct 35.8 % (42.0-54.0) L 10/08/24 05:18 MCV 84.6 fL (80.0-100.0) 10/08/24 05:18 MCH 28.5 pg (27.0-34.0) 10/08/24 05:18 MCHC 33.6 g/dL (33.0-35.0) 10/08/24 05:18 RDW 13.5 % (11.6-16.5) 10/08/24 05:18 Plt Count 219 X10^3/uL (150.0-450.0) 10/08/24 05:18 Plt Count Comment Adequate (ADEQUATE) 10/08/24 05:18 MPV 9.0 fL (7.4-11.0) 10/08/24 05:18 Neut % (Auto) 75.9 % (42.0-75.0) H 10/08/24 05:18 Lymph % (Auto) 12.0 % (21.0-51.0) L 10/08/24 05:18 [place] % (Auto) 11.4 % (0.0-13.0) 10/08/24 05:18 Eos % (Auto) 0.1 % (0.9-2.9) L 10/08/24 05:18 Baso % (Auto) 0.6 % (0.2-1.0) 10/08/24 05:18 Neut # (Auto) 12.4 x10^3/uL (2.2-4.8) H 10/08/24 05:18 Lymph # (Auto) 2.0 X10^3/uL (1.3-2.9) 10/08/24 05:18 [place] # (Auto) 1.9 x10^3/uL (0.3-0.8) H 10/08/24 05:18 Eos # (Auto) 0.0 x10^3/uL (0.0-0.2) 10/08/24 05:18 Baso # (Auto) 0.1 X10^3/uL (0.0-0.1) 10/08/24 05:18 Absolute Nucleated RBC 0.0 /100WBC 10/08/24 05:18 Total Counted 100 10/08/24 05:18 Neutrophils % (Manual) 79 % (39-76) H 10/08/24 05:18 Band Neutrophils % 1 % (0-10) 10/08/24 05:18 Lymphocytes % (Manual) 11 % (13-43) L 10/08/24 05:18 Monocytes % (Manual) 9 % (4-9) 10/08/24 05:18 Giant Platelets Rare 10/03/24 17:55 Plt Morphology Comment Normal (NORMAL) 10/08/24 05:18 RBC Morphology Normal (NORMAL) 10/08/24 05:18 Microcytosis Slight A 10/03/24 17:55 PT 16.2 SECONDS (11.8-14.3) 10/04/24 05:10 INR Target Range - 10/04/24 05:10 INR 1.34 (0.8-1.3) H 10/04/24 05:10 APTT 31.9 SECONDS (22.9-36.5) 10/04/24 05:10 PTT Comment - 10/04/24 05:10 Sample Site Rra 10/03/24 17:30 ABG pH 7.330 (7.35-7.45) L 10/03/24 17:30 ABG pCO2 29.0 mmHg (35.0-45.0) L 10/03/24 17:30 ABG pO2 62.0 mmHg (80.0-100.0) L 10/03/24 17:30 ABG HCO3 15.3 mmol/L (22-26) L* 10/03/24 17:30 ABG O2 Saturation 89.0 % (90-100) L 10/03/24 17:30 ABG Base Excess -9.3 mmol/L (-2.0-2.0) L 10/03/24 17:30 Tuan Test Pos 10/03/24 17:30 A-a Gradient 101.0 mmHg 10/03/24 17:30 FiO2 28.0 10/03/24 17:30 Blood Gas Comments Pt jessica well eb/kg 10/03/24 17:30 Sodium 135 mmol/L (136-145) L 10/08/24 05:18 Corrected Sodium 137 mmol/L (136-145) 10/08/24 05:18 Potassium 3.7 mmol/L (3.5-5.1) 10/08/24 05:18 Chloride 100 mmol/L (98-107) 10/08/24 05:18 Carbon Dioxide 25.5 mmol/L (21-32) 10/08/24 05:18 BUN 35 mg/dL (7-18) H 10/08/24 05:18 Creatinine 1.74 mg/dL (0.70-1.30) H 10/08/24 05:18 Est GFR (MDRD) Af Amer 48 (>60) L 10/08/24 05:18 Est GFR (MDRD) Non-Af 40 (>60) L 10/08/24 05:18 Glucose 167 mg/dL (65-99) H 10/08/24 05:18 Lactic Acid 1.8 mmol/L (0.4-2.0) 10/04/24 12:28 Calcium 9.4 mg/dL (8.5-10.1) 10/08/24 05:18 Corrected Calcium 11.1 mg/dL (8.5-10.1) H 10/08/24 05:18 Magnesium 2.0 mg/dL (2.0-2.9) 10/07/24 05:35 Total Bilirubin 0.40 mg/dL (0.2-1.0) 10/08/24 05:18 AST 42 Units/L (15-37) H 10/08/24 05:18 ALT 64 Units/L (12-78) 10/08/24 05:18 Alkaline Phosphatase 118 Units/L (46-116) H 10/08/24 05:18 Creatine Kinase 506 Units/L (39-308) H 10/05/24 05:29 Troponin I High Sens 39.1 ng/L (4.0-60.0) 10/05/24 05:29 B-Natriuretic Peptide 256 pg/mL (0-79) H 10/07/24 00:40 Total Protein 6.6 g/dL (6.4-8.2) 10/08/24 05:18 Albumin 1.9 g/dL (3.4-5.0) L 10/08/24 05:18 Globulin 4.7 g/dL (2.5-4.5) H 10/08/24 05:18 Albumin/Globulin Ratio 0.4 Ratio (1.1-2.1) L 10/08/24 05:18 Specimen Type Clean catch urine 10/03/24 00:28 Urine Color Straw (YELLOW) 10/03/24 00: Urine Appearance Clear (CLEAR) 10/03/24 00: Urine pH 5.0 (5.0 - 8.0) 10/03/24 00:28 Ur Specific [place] 1.010 (1.000-1.030) 10/03/24 00: Urine Protein Negative (NEGATIVE) 10/03/24 00: Urine Glucose (UA) Negative (NEGATIVE) 10/03/24: Urine Ketones Negative (NEGATIVE) 10/03/24: Urine Blood Negative (NEGATIVE) 10/03/24: Urine Nitrite Negative (NEGATIVE) 10/03/24: Urine Bilirubin Negative (NEGATIVE) 10/03/24: Urine Urobilinogen Normal (NORMAL) 10/03/24 00: Ur Leukocyte Esterase Negative (NEGATIVE) 10/03/24 00:28 Plan (1) Acute exacerbation of chronic obstructive pulmonary disease (COPD): Status: Acute (2) Chronic kidney disease (CKD): Status: Chronic Qualifiers: Chronic kidney disease stage: stage 3 (moderate) Chronic kidney disease stage 3 subtype: stage 3b (GFR 30-44) Qualified Code(s): N18.32 - Chronic kidney disease, stage 3b (3) Generalized weakness: Status: Acute (4) Acute pain of right shoulder: Status: Acute (5) Abdominal distension: Status: Acute (6) Elevated troponin: Status: Acute
[2024-10-09 05:28] LABS: BASOPHILS % (AUTO) 0.2 % (0.2-1.0); EOSINOPHILS % (AUTO) 0.2 % (0.9-2.9); HEMOGLOBIN 11.9 g/dL (13.5-18.0); LYMPHOCYTES # (AUTO) 2.8 X10^3/uL (1.3-2.9); LYMPHOCYTES % (AUTO) 15.9 % (21.0-51.0); MEAN CORPUSCULAR HEMOGLOBIN 28.4 pg (27.0-34.0); MEAN CORPUSCULAR VOLUME 83.5 fL (80.0-100.0); MONOCYTES % (AUTO) 11.2 % (0.0-13.0); NEUTROPHILS # (AUTO) 12.7 x10^3/uL (2.2-4.8); NEUTROPHILS % (AUTO) 72.5 % (42.0-75.0); PLATELET COUNT 247 X10^3/uL (150.0-450.0); RED BLOOD COUNT 4.19 X10^6/uL (4.7-6.0); RED CELL DISTRIBUTION WIDTH 13.9 % (11.6-16.5); WHITE BLOOD COUNT 17.5 X10^3/uL (3.6-10.0)
[2024-10-09 05:36] LABS: ALBUMIN 1.9 g/dL (3.4-5.0); CALCIUM 9.4 mg/dL (8.5-10.1); CARBON DIOXIDE 24.8 mmol/L (21-32); COR CA(FOR HYPOALB) 11.1 mg/dL (8.5-10.1); CREATININE 1.71 mg/dL (0.70-1.30); POTASSIUM 3.8 mmol/L (3.5-5.1); TOTAL PROTEIN 6.7 g/dL (6.4-8.2)
--- NOTE | 2024-10-09 06:50 | RAD ---
EXAMINATION:CHEST, 1 VIEWHISTORY:BRONCHITIS; HX: COPD .COMPARISON STUDY:Chest x-ray 10/07/2024TECHNIQUE:Single frontal view of the chestFINDINGS:Lungs are expanded. Patchy alveolar infiltrates scattered in both lungs. Heart size and pulmonary vascular pattern appear normal. Bones are intact.IMPRESSION:Patchy alveolar infiltrates scattered in both lungs.THIS IS AN ELECTRONICALLY VERIFIED FINAL [id number]/09/2024 6:47 AM - Electronically signed by Fanta Burnette MD
[2024-10-09] MEDS ORDERED: CONSULT PHARMACY - POTASSIUM & MAGNESIUM XX SCH (08:00)
[2024-10-09] MEDS ORDERED: MAG-OX TAB PO SCH (09:00)
[2024-10-09] MEDS: KLOR-CON 10 MEQ TAB PO SCH (09:04)
--- NOTE | 2024-10-09 09:58 | NOTE.SOAP ---
Soap Note Note for Day of Date of Exam: 10/07/24 Subjective Data Subjective Data: Respiratory distress last night, but improving cough overall. Ambulating the hallway yesterday. Plans for swing bed next week. Objective Data Objective Data: NAD. Improving respirations. RRR. BS+ with abdomen less distended. Assessment Assessment: 1. CAP, b/l, acute with COPD exacerbation- continue current. Increase OOB time. Plan for swing bed next week. 2. BPH, chronic- stable. no changes. 4. Acquired hypothyroidism, chronic. No changes.
--- NOTE | 2024-10-09 11:12 | PCM.PROG ---
Progress Note Progress Note for Day of Date of Exam: 10/09/24 Subjective Subjective: Patient is a 89-year-old male admitted for COPD exacerbation, deconditioning/weakness. This morning he is in bed. No acute events overnight. He has been ambulating to the recliner. He continues to have shortness of breath. He is requiring 3 L nasal cannula supplemental oxygen. Labs/imaging: WBC 17.5, hemoglobin 11.9, platelets 247, sodium 134, potassium 3.8, creatinine 1.71, glucose 115, chest x-ray performed that revealed patchy b/l infiltrates. Will continue with IV antibiotics Levaquin. Scheduled bronchodilators. Otherwise continue with current treatment plan. Continue closely monitor and follow-up labs/imaging. Past Medical Family Social History Allergies: Allergies [place]-NGE-AlU Reductase Inhibitor Adverse Reaction (Verified 10/01/24 15:01) pain in legs Review of Systems ROS changes noted: see HPI Vital Signs and I&O's Vital Signs: Vital Signs Temperature 98 F Temperature 98.0 F Temperature 98.0 F Pulse Rate [Left Brachial] 68 Pulse Rate [Left Brachial] 67 Pulse Rate [Left Brachial] 67 Pulse Rate 71 Respiratory Rate 19 Respiratory Rate 17 Respiratory Rate 17 Blood Pressure [Left Arm] 106/59 Blood Pressure [Left Arm] 129/72 Blood Pressure [Left Arm] 129/72 O2 Sat by Pulse Oximetry 95 O2 Sat by Pulse Oximetry 95 O2 Sat by Pulse Oximetry 94 O2 Sat by Pulse Oximetry 94 Intake and Output: Intake & Output 10/06/24 10/07/24 10/08/24 10/09/24 23:59 23:59 23:59 23:59 Intake Total 1762 / 1762 1568 / 1568 1226 / 1226 324 / 324 Output Total 1502 / 1502 1402 / 1402 1626 / 1626 475 / 475 Balance 260 / 260 166 / 166 -400 / -400 -151 / -151 Physical Exam Oriented: Normal Eyes: Normal Nose: Normal Respiratory: Diminished Cardiovascular: Normal Auscultation: Bowel Sounds: Normal Tenderness: Normal Skin: Decreased [place] Musculoskeletal: Normal Psychiatric: Normal Mood Description: Calm Speech Pattern: Clear and Appropriate Laboratory and Diagnostics 10/09/24 04:55 10/09/24 04:55 Labs: Laboratory WBC 17.5 X10^3/uL (3.6-10.0) H 10/09/24 04:55 RBC 4.19 X10^6/uL (4.7-6.0) L 10/09/24 04:55 Hgb 11.9 g/dL (13.5-18.0) L 10/09/24 04:55 Hct 35.0 % (42.0-54.0) L 10/09/24 04:55 MCV 83.5 fL (80.0-100.0) 10/09/24 04:55 MCH 28.4 pg (27.0-34.0) 10/09/24 04:55 MCHC 34.0 g/dL (33.0-35.0) 10/09/24 04:55 RDW 13.9 % (11.6-16.5) 10/09/24 04:55 Plt Count 247 X10^3/uL (150.0-450.0) 10/09/24 04:55 Plt Count Comment Adequate (ADEQUATE) 10/08/24 05:18 MPV 9.0 fL (7.4-11.0) 10/09/24 04:55 Neut % (Auto) 72.5 % (42.0-75.0) 10/09/24 04:55 Lymph % (Auto) 15.9 % (21.0-51.0) L 10/09/24 04:55 [place] % (Auto) 11.2 % (0.0-13.0) 10/09/24 04:55 Eos % (Auto) 0.2 % (0.9-2.9) L 10/09/24 04:55 Baso % (Auto) 0.2 % (0.2-1.0) 10/09/24 04:55 Neut # (Auto) 12.7 x10^3/uL (2.2-4.8) H 10/09/24 04:55 Lymph # (Auto) 2.8 X10^3/uL (1.3-2.9) 10/09/24 04:55 [place] # (Auto) 2.0 x10^3/uL (0.3-0.8) H 10/09/24 04:55 Eos # (Auto) 0.0 x10^3/uL (0.0-0.2) 10/09/24 04:55 Baso # (Auto) 0.0 X10^3/uL (0.0-0.1) 10/09/24 04:55 Absolute Nucleated RBC 0.1 /100WBC 10/09/24 04:55 Total Counted 100 10/08/24 05:18 Neutrophils % (Manual) 79 % (39-76) H 10/08/24 05:18 Band Neutrophils % 1 % (0-10) 10/08/24 05:18 Lymphocytes % (Manual) 11 % (13-43) L 10/08/24 05:18 Monocytes % (Manual) 9 % (4-9) 10/08/24 05:18 Giant Platelets Rare 10/03/24 17:55 Plt Morphology Comment Normal (NORMAL) 10/08/24 05:18 RBC Morphology Normal (NORMAL) 10/08/24 05:18 Microcytosis Slight A 10/03/24 17:55 PT 16.2 SECONDS (11.8-14.3) 10/04/24 05:10 INR Target Range - 10/04/24 05:10 INR 1.34 (0.8-1.3) H 10/04/24 05:10 APTT 31.9 SECONDS (22.9-36.5) 10/04/24 05:10 PTT Comment - 10/04/24 05:10 Sample Site Rra 10/03/24 17:30 ABG pH 7.330 (7.35-7.45) L 10/03/24 17:30 ABG pCO2 29.0 mmHg (35.0-45.0) L 10/03/24 17:30 ABG pO2 62.0 mmHg (80.0-100.0) L 10/03/24 17:30 ABG HCO3 15.3 mmol/L (22-26) L* 10/03/24 17:30 ABG O2 Saturation 89.0 % (90-100) L 10/03/24 17:30 ABG Base Excess -9.3 mmol/L (-2.0-2.0) L 10/03/24 17:30 Tuan Test Pos 10/03/24 17:30 A-a Gradient 101.0 mmHg 10/03/24 17:30 FiO2 28.0 10/03/24 17:30 Blood Gas Comments Pt jessica well eb/kg 10/03/24 17:30 Sodium 134 mmol/L (136-145) L 10/09/24 04:55 Corrected Sodium 134 mmol/L (136-145) L 10/09/24 04:55 Potassium 3.8 mmol/L (3.5-5.1) 10/09/24 04:55 Chloride 100 mmol/L (98-107) 10/09/24 04:55 Carbon Dioxide 24.8 mmol/L (21-32) 10/09/24 04:55 BUN 33 mg/dL (7-18) H 10/09/24 04:55 Creatinine 1.71 mg/dL (0.70-1.30) H 10/09/24 04:55 Est GFR (MDRD) Af Amer 49 (>60) L 10/09/24 04:55 Est GFR (MDRD) Non-Af 40 (>60) L 10/09/24 04:55 Glucose 115 mg/dL (65-99) H 10/09/24 04:55 Lactic Acid 1.8 mmol/L (0.4-2.0) 10/04/24 12:28 Calcium 9.4 mg/dL (8.5-10.1) 10/09/24 04:55 Corrected Calcium 11.1 mg/dL (8.5-10.1) H 10/09/24 04:55 Magnesium 2.0 mg/dL (2.0-2.9) 10/07/24 05:35 Total Bilirubin 0.40 mg/dL (0.2-1.0) 10/09/24 04:55 AST 63 Units/L (15-37) H 10/09/24 04:55 ALT 97 Units/L (12-78) H 10/09/24 04:55 Alkaline Phosphatase 116 Units/L (46-116) 10/09/24 04:55 Creatine Kinase 506 Units/L (39-308) H 10/05/24 05:29 Troponin I High Sens 39.1 ng/L (4.0-60.0) 10/05/24 05:29 B-Natriuretic Peptide 256 pg/mL (0-79) H 10/07/24 00:40 Total Protein 6.7 g/dL (6.4-8.2) 10/09/24 04:55 Albumin 1.9 g/dL (3.4-5.0) L 10/09/24 04:55 Globulin 4.8 g/dL (2.5-4.5) H 10/09/24 04:55 Albumin/Globulin Ratio 0.4 Ratio (1.1-2.1) L 10/09/24 04:55 Specimen Type Clean catch urine 10/03/24 00:28 Urine Color Straw (YELLOW) 10/03/24 00:28 Urine Appearance Clear (CLEAR) 10/03/24 00:28 Urine pH 5.0 (5.0 - 8.0) 10/03/24 00:28 Ur Specific [place] 1.010 (1.000-1.030) 10/03/24 00:28 Urine Protein Negative (NEGATIVE) 10/03/24 00: Urine Glucose (UA) Negative (NEGATIVE) 10/03/24 00: Urine Ketones Negative (NEGATIVE) 10/03/24 00: Urine Blood Negative (NEGATIVE) 10/03/24 00: Urine Nitrite Negative (NEGATIVE) 10/03/24 00: Urine Bilirubin Negative (NEGATIVE) 10/03/24 00: Urine Urobilinogen Normal (NORMAL) 10/03/24 00:28 Ur Leukocyte Esterase Negative (NEGATIVE) 10/03/24 00:28 Plan (1) Acute exacerbation of chronic obstructive pulmonary disease (COPD): Status: Acute (2) Chronic kidney disease (CKD): Status: Chronic Qualifiers: Chronic kidney disease stage: stage 3 (moderate) Chronic kidney disease stage 3 subtype: stage 3b (GFR 30-44) Qualified Code(s): N18.32 - Chronic kidney disease, stage 3b (3) Generalized weakness: Status: Acute (4) Acute pain of right shoulder: Status: Acute (5) Abdominal distension: Status: Acute (6) Elevated troponin: Status: Acute
[2024-10-10 06:01] LABS: BASOPHILS # (AUTO) 0.1 X10^3/uL (0.0-0.1); BASOPHILS % (AUTO) 0.3 % (0.2-1.0); EOSINOPHILS % (AUTO) 0.2 % (0.9-2.9); HEMATOCRIT 37.7 % (42.0-54.0); HEMOGLOBIN 12.8 g/dL (13.5-18.0); LYMPHOCYTES # (AUTO) 2.5 X10^3/uL (1.3-2.9); LYMPHOCYTES % (AUTO) 15.8 % (21.0-51.0); MEAN CORPUSCULAR HEMOGLOBIN 28.6 pg (27.0-34.0); MEAN CORPUSCULAR HGB CONC 33.8 g/dL (33.0-35.0); MEAN CORPUSCULAR VOLUME 84.5 fL (80.0-100.0); MEAN PLATELET VOLUME 8.7 fL (7.4-11.0); MONOCYTES # (AUTO) 1.6 x10^3/uL (0.3-0.8); MONOCYTES % (AUTO) 10.3 % (0.0-13.0); NEUTROPHILS # (AUTO) 11.6 x10^3/uL (2.2-4.8); NEUTROPHILS % (AUTO) 73.4 % (42.0-75.0); PLATELET COUNT 261 X10^3/uL (150.0-450.0); RED BLOOD COUNT 4.47 X10^6/uL (4.7-6.0); WHITE BLOOD COUNT 15.9 X10^3/uL (3.6-10.0)
[2024-10-10 06:20] LABS: ALANINE AMINOTRANSFERASE 100 Units/L (12-78); ALKALINE PHOSPHATASE 117 Units/L (46-116); ASPARTATE AMINO TRANSFERASE 48 Units/L (15-37); BLOOD UREA NITROGEN 31 mg/dL (7-18); CALCIUM 9.7 mg/dL (8.5-10.1); CARBON DIOXIDE 27.9 mmol/L (21-32); CHLORIDE 98 mmol/L (98-107); COR CA(FOR HYPOALB) 11.3 mg/dL (8.5-10.1); CREATININE 1.79 mg/dL (0.70-1.30); GLUCOSE 94 mg/dL (65-99); POTASSIUM 4.1 mmol/L (3.5-5.1); SODIUM 136 mmol/L (136-145); TOTAL PROTEIN 7.1 g/dL (6.4-8.2); eGFR NON BLACK RACES 38 (>60)
[2024-10-10] MEDS: NS 250 ML IV 250 ML IV ONE (07:16)
[2024-10-10 07:53] VITALS: PULSE 62; RESP 19
[2024-10-10] MEDS: LEVAQUIN TAB 750 MG PO SCH (08:39)
[2024-10-10 12:36] VITALS: BP 100/55; TEMP 96; O2SAT 95
--- NOTE | 2024-10-10 12:57 | PCM.DCPLAN ---
DISCHARGE SUMMARY Admission Date Date of Admission: 10/03/24 Discharge Date Discharge Date: 10/10/24 Admission Diagnoses (1) Bilateral pneumonia: Status: Acute (2) Acute exacerbation of chronic obstructive pulmonary disease (COPD): Status: Acute (3) Chronic kidney disease (CKD): Status: Chronic (4) Generalized weakness: Status: Acute (5) Acute pain of right shoulder: Status: Acute (6) Abdominal distension: Status: Acute (7) Elevated troponin: Status: Acute (8) Severe sepsis: Status: Acute (9) Moraxella catarrhalis pneumonia: Status: Acute (10) Klebsiella pneumoniae pneumonia: Status: Acute Discharge Diagnoses Discharge Diagnosis: Severe sepsis due to fever, leukocytosis, tachypnea, tachycardia, moraxella/klebsiella b/l CAP, with acute on chronic respiratory failure. Discharge Medications Discharge Medications: Prescriptions: Hospital Course Vital Signs: Vital Signs Temperature 98.2 F Temperature 98.2 F Pulse Rate [Left Brachial] 64 Pulse Rate [Left Brachial] 66 Pulse Rate 78 Pulse Rate 76 Respiratory Rate 17 Respiratory Rate 18 Blood Pressure [Left Arm] 129/67 Blood Pressure [Left Arm] 146/68 O2 Sat by Pulse Oximetry 96 O2 Sat by Pulse Oximetry 94 O2 Sat by Pulse Oximetry 96 O2 Sat by Pulse Oximetry 92 Latest Lab Results: Laboratory Last Values WBC 15.9 X10^3/uL (3.6-10.0) H 10/10/24 05:35 RBC 4.47 X10^6/uL (4.7-6.0) L 10/10/24 05:35 Hgb 12.8 g/dL (13.5-18.0) L 10/10/24 05:35 Hct 37.7 % (42.0-54.0) L 10/10/24 05:35 MCV 84.5 fL (80.0-100.0) 10/10/24 05:35 MCH 28.6 pg (27.0-34.0) 10/10/24 05:35 MCHC 33.8 g/dL (33.0-35.0) 10/10/24 05:35 RDW 14.0 % (11.6-16.5) 10/10/24 05:35 Plt Count 261 X10^3/uL (150.0-450.0) 10/10/24 05:35 Plt Count Comment Adequate (ADEQUATE) 10/08/24 05:18 MPV 8.7 fL (7.4-11.0) 10/10/24 05:35 Neut % (Auto) 73.4 % (42.0-75.0) 10/10/24 05:35 Lymph % (Auto) 15.8 % (21.0-51.0) L 10/10/24 05:35 [place] % (Auto) 10.3 % (0.0-13.0) 10/10/24 05:35 Eos % (Auto) 0.2 % (0.9-2.9) L 10/10/24 05:35 Baso % (Auto) 0.3 % (0.2-1.0) 10/10/24 05:35 Neut # (Auto) 11.6 x10^3/uL (2.2-4.8) H 10/10/24 05:35 Lymph # (Auto) 2.5 X10^3/uL (1.3-2.9) 10/10/24 05:35 [place] # (Auto) 1.6 x10^3/uL (0.3-0.8) H 10/10/24 05:35 Eos # (Auto) 0.0 x10^3/uL (0.0-0.2) 10/10/24 05:35 Baso # (Auto) 0.1 X10^3/uL (0.0-0.1) 10/10/24 05:35 Absolute Nucleated RBC 0.0 /100WBC 10/10/24 05:35 Total Counted 100 10/08/24 05:18 Neutrophils % (Manual) 79 % (39-76) H 10/08/24 05:18 Band Neutrophils % 1 % (0-10) 10/08/24 05:18 Lymphocytes % (Manual) 11 % (13-43) L 10/08/24 05:18 Monocytes % (Manual) 9 % (4-9) 10/08/24 05:18 Giant Platelets Rare 10/03/24 17:55 Plt Morphology Comment Normal (NORMAL) 10/08/24 05:18 RBC Morphology Normal (NORMAL) 10/08/24 05:18 Microcytosis Slight A 10/03/24 17:55 PT 16.2 SECONDS (11.8-14.3) 10/04/24 05:10 INR Target Range - 10/04/24 05:10 INR 1.34 (0.8-1.3) H 10/04/24 05:10 APTT 31.9 SECONDS (22.9-36.5) 10/04/24 05:10 PTT Comment - 10/04/24 05:10 Sample Site Rra 10/03/24 17:30 ABG pH 7.330 (7.35-7.45) L 10/03/24 17:30 ABG pCO2 29.0 mmHg (35.0-45.0) L 10/03/24 17:30 ABG pO2 62.0 mmHg (80.0-100.0) L 10/03/24 17:30 ABG HCO3 15.3 mmol/L (22-26) L* 10/03/24 17:30 ABG O2 Saturation 89.0 % (90-100) L 10/03/24 17:30 ABG Base Excess -9.3 mmol/L (-2.0-2.0) L 10/03/24 17:30 Tuan Test Pos 10/03/24 17:30 A-a Gradient 101.0 mmHg 10/03/24 17:30 FiO2 28.0 10/03/24 17:30 Blood Gas Comments Pt jessica well eb/kg 10/03/24 17:30 Sodium 136 mmol/L (136-145) 10/10/24 05:35 Corrected Sodium TNP 10/10/24 05:35 Potassium 4.1 mmol/L (3.5-5.1) 10/10/24 05:35 Chloride 98 mmol/L (98-107) 10/10/24 05:35 Carbon Dioxide 27.9 mmol/L (21-32) 10/10/24 05:35 BUN 31 mg/dL (7-18) H 10/10/24 05:35 Creatinine 1.79 mg/dL (0.70-1.30) H 10/10/24 05:35 Est GFR (MDRD) Af Amer 46 (>60) L 10/10/24 05:35 Est GFR (MDRD) Non-Af 38 (>60) L 10/10/24 05:35 Glucose 94 mg/dL (65-99) 10/10/24 05:35 Lactic Acid 1.8 mmol/L (0.4-2.0) 10/04/24 12:28 Calcium 9.7 mg/dL (8.5-10.1) 10/10/24 05:35 Corrected Calcium 11.3 mg/dL (8.5-10.1) H 10/10/24 05:35 Magnesium 2.0 mg/dL (2.0-2.9) 10/07/24 05:35 Total Bilirubin 0.40 mg/dL (0.2-1.0) 10/10/24 05:35 AST 48 Units/L (15-37) H 10/10/24 05:35 ALT 100 Units/L (12-78) H 10/10/24 05:35 Alkaline Phosphatase 117 Units/L (46-116) H 10/10/24 05:35 Creatine Kinase 506 Units/L (39-308) H 10/05/24 05:29 Troponin I High Sens 39.1 ng/L (4.0-60.0) 10/05/24 05:29 B-Natriuretic Peptide 256 pg/mL (0-79) H 10/07/24 00:40 Total Protein 7.1 g/dL (6.4-8.2) 10/10/24 05:35 Albumin 2.0 g/dL (3.4-5.0) L 10/10/24 05:35 Globulin 5.1 g/dL (2.5-4.5) H 10/10/24 05:35 Albumin/Globulin Ratio 0.4 Ratio (1.1-2.1) L 10/10/24 05:35 Specimen Type Clean catch urine 10/03/24 00:28 Urine Color Straw (YELLOW) 10/03/24 00:28 Urine Appearance Clear (CLEAR) 10/03/24 00:28 Urine pH 5.0 (5.0 - 8.0) 10/03/24 00:28 Ur Specific [place] 1.010 (1.000-1.030) 10/03/24 00:28 Urine Protein Negative (NEGATIVE) 10/03/24 00:28 Urine Glucose (UA) Negative (NEGATIVE) 10/03/24 00:28 Urine Ketones Negative (NEGATIVE) 10/03/24 00:28 Urine Blood Negative (NEGATIVE) 10/03/24 00:28 Urine Nitrite Negative (NEGATIVE) 10/03/24 00:28 Urine Bilirubin Negative (NEGATIVE) 10/03/24 00:28 Urine Urobilinogen Normal (NORMAL) 10/03/24 00:28 Ur Leukocyte Esterase Negative (NEGATIVE) 10/03/24 00:28 Hospital Course: Patient originally admitted a week and a half ago due to leg weakness that was thought to be secondary to dehydration with AMMY and electrolyte abnormalities. His right shoulder was injected due to pain lingering over 2 weeks. The injection did help. Fluids helped his electrolytes and AMMY. He was discharged home after 2 days in the hospital and returned later that afternoon. There was concern that he might of had a CHF exacerbation due to the hydration. BNP was m ildly elevated but echo benign during stay. It was thought that he had a COPD exacerbation in addition to pneumonia. Repeat x-rays did show resolving infiltrates in the areas of his chronic scarring. He responded well to nebs, steroids, and Levaquin. He was continued on Zosyn and Levaquin due to meeting severe sepsis criteria. His AIT results from his first admission showed Klebsiella and Moraxella in his sputum. Patient did agree to discharge to rehab as his legs were still giving out on him and he was getting short of breath with coughing spells. In general he steadily improved but just would feel bad during the coughing fits. Patient needs to continue Levaquin for total 14 days, continue steroids until discharge, and continue nebs. PE: Elderly male in no acute distress sitting on the edge of his bed. Hearing intact conversation. Head NCAT. EOMI. Hearing intact conversation. Heart regular rate and rhythm with no murmurs. Lungs diminished but clear today. He does have coughing with deep breathing. Belly is soft, nontender with bowel sounds present. Mood and affect appropriate. No swelling of his extremities.
== END 2024-10-10 12:59 | disposition swing bed (61) | DRG 291 ==
LOC: MED/SURG 17:26 → ER 17:26 → OBSVTOIN 21:46 → MED/SURG 22:22
PROVIDERS: ADMIT Family Medicine; ATTEND Family Medicine
DX: R79.1 Abnormal coagulation profile; R26.89 Other abnormalities of gait and mobility; J44.1 Chronic obstructive pulmonary disease with (acute) exacerbation; I11.0 Hypertensive heart disease with heart failure; R06.02 Shortness of breath; M25.511 Pain in right shoulder; R79.89 Other specified abnormal findings of blood chemistry; E87.1 Hypo-osmolality and hyponatremia; Z99.81 Dependence on supplemental oxygen; J15.0 Pneumonia due to Klebsiella pneumoniae; R53.1 Weakness; I50.9 Heart failure, unspecified; E86.0 Dehydration; J15.69 Pneumonia due to other Gram-negative bacteria; E83.42 Hypomagnesemia; N18.32 Chronic kidney disease, stage 3b

== ENCOUNTER 2024-10-10 13:00 | Inpatient (IN) ==
[2024-10-10] MEDS ORDERED: MILK OF MAGNESIA PO PRN (14:14)
[2024-10-10 14:57] VITALS: BMI 25.0
[2024-10-10] MEDS: COLACE CAP 100 MG PO PRN (15:30)
[2024-10-10] MEDS: DUONEB 0.5 MG/3 MG (3 mL) NEB SCH (16:25)
--- NOTE | 2024-10-10 16:30 | PT/OTEVAL ---
PT/OT OBJECTIVES - HISTORY Prescription: PT Consult Diagnosis: Deconditioning s/p CHF Exacerbation Precautions: Fall Risk, O2 PMH: COPD, Dementia, Depression, Hyperthyroidism, Ortho Sx, Back Sx, Kidney Donor Prior Level of Function: Independent Other: Per patient report- he resides at home with in single story home with 3 steps to enter with LHR. PLOF: Independent within home and community without a device but does report he has been using a cane as needed lately. Pt reports that ~3 weeks ago he had a fall at home and injured his R shoulder (improving overall but still sore). DME: S[facility]. History of Present Illness: Pt is an 89 year old male who presented to the ER at [facility] on 10/03/2024 after being discharged that same day from the hospital for dehydration and CKD. Pt was noted with SOB/difficulty breathing and fatigue and was subsequently admitted to floor for treatment. Pt noted with increased weakness and difficulty performing mobility tasks from PLOF and agreeable to participation in swing bed program to address deficits and facilitate highest level of function and safe discharge planning. - COGNITION Mental Status: Alert, Oriented, Name, Date, Place, Purpose Communication Status: Verbal Ability to Follow Directions: 2 Step Memory Loss: None Affect: Calm - PAIN Ribs and back when cough Pain Scale: Mild Comments: "Still sore, but it's getting better" - BED MOBILITY Rolling: Minimal - TRANSFERS Supine to Sit: Minimal Sit to Stand: Minimal Sit or Stand Pivot: Minimal Toileting: Minimal Safety (requires cues for:): Hand Placement Precaution - BALANCE Static Sitting: Good Standing: Fair Balance Comment: Fair- Dynamic Sitting: Good Standing: Poor Balance Comment: Poor+ - NEUROMOTOR/SENSATION Johny. Lower Ext Sensation: WFL Coordination: WFL Proprioception: WFL - ROM Bilateral LE ROM: WFL Muscle Tone: WFL - STRENGTH Bilateral LE Strength Number: 3 Other comment: 3+/5 - GAIT Pt. ambulates how many feet?: 150 Amount of Assistance Required: Minimal Type of Assistive Device: Rolling Walker - TREATMENT Date: 10/10/24 Time: 03:00 Treatment Type: Evaluation - TOTAL TREATMENT TIME Total Time: 45 - POST ASSESSMENT Post Assessment Comment: Pt was found supine in bed in room and agreeable to participation in PT services. Pt transitioned to swing bed program this date for further focus on strengthening and balance and increased independence with mobility tasks. Pt was able to perform bed mobility tasks with min assist, functional transfers with min assist and gait tasks with FWW with touch/min assist. Pt on continuous O2 throughout- requires frequent therapeutic rest breaks throughout due to fatigue. Pt with good motivation for participation and would benefit from continued PT services to address deficits and facilitate highest level of function and safe discharge planning. - EXIT DISPOSITION Exit Position: CHAIR Call light in reach: Yes Comments: All needs met. PT/OT ASSESSMENT - PT Problem List: Decreased Bed Mobility, Decreased Transfers, Decreased Gait, Decreased Balance, Decreased Safety, Decreased LE Strength, Other Other, Comment: Manual Therapy - PT GOALS Short Term Goals Days: 10 Mobility: Pt will perform bed mobility tasks with SBA Transfers: Pt will perform functional transfers with SBA Gait: Pt will ambulate 250ft with FWW with SBA Balance: Pt will increase static standing balance to good Paint Booth Operator Goals Days: 20 Mobility: Pt will perform bed mobility tasks with mod I Transfers: Pt will perform functional transfers with mod I Gait: Pt will ambulate 400ft with LRAD and mod I Balance: Pt will increase dynamic standing balance to good ROM/Strength: Pt will increase BLE strength to 5/5 Others: Pt will ascend/descend 3 stairs with LHR and mod I - PATIENT GOALS Patient/Family Goals: "I just want to get my strength back so I can get home safe" Goals Discussed with Patient/Family: Yes Rehabilitation Potential: Good to meet stated goals Justification for Potential: Facilitate highest level of function and safe discharge planning. Weakness and Barriers: None - PLAN Suggested Treatment Plan: Bed Mobility Training, Therapeutic Activity, Gait Training, Neuro Re-education, Therapeutic Ex with HEP, Patient Education - FREQUENCY AND DURATION PT: 5-6x per week x 20 days Expected Continuation of Care at Discharge: Home Health Anticipated Equipment Needs: TBD progress at time of discharge
--- NOTE | 2024-10-10 16:43 | PT/OTEVAL ---
PT/OT OBJECTIVES - HISTORY Prescription: OT Consult Diagnosis: CHF, SOB, bronchitis Precautions: Continuous o2 3L, fall risk PMH: COPD, Dementia, Depression and Hyperthyroidism Other: Per pt report, Pt lives with his in a 1 story home with 2 steps and a HR going up on the L. Pt is (I) with ADLs and IADLs. Pt wears o2 PRN, however has been needing it more frequently. Pt is driving. DME includes a shower chair, cane and his has a rollator and a SW. History of Present Illness: Patient originally admitted a week and a half ago due to leg weakness that was thought to be secondary to dehydration with AMMY and electrolyte abnormalities. He was discharged home after 2 days in the hospital and returned later that afternoon. There was concern that he might of had a CHF exacerbation due to the hydration. It was thought that he had a COPD exacerbation in addition to pneumonia. Repeat x-rays did show resolving infiltrates in the areas of his chronic scarring. Pt was agreeable to swingbed program to address ADL deficits and increase MMT. - COGNITION Mental Status: Alert, Oriented Communication Status: Verbal Ability to Follow Directions: 2 Step Affect: Calm - PAIN Ribs and back when cough Pain Scale: Moderate Comments: 5-6/10 Right Shoulder Pain Scale: Mild Comments: "It's getting better" - BED MOBILITY Rolling: Minimal Scooting: Minimal - TRANSFERS Supine to Sit: Minimal Sit to Stand: Minimal Toileting: Minimal Safety (requires cues for:): Hand Placement Precaution - ADL'S Feeding: Supervision Grooming: Setup Upper Body ADL: Minimum Lower Body ADL: Moderate Toileting: Moderate Bathing: Minimum Hygeine: Supervision - BALANCE Static Sitting: Good Standing: Fair Dynamic Sitting: Fair Standing: Fair - NEUROMOTOR/SENSATION Johny. Upper Ext Sensation: WFL Coordination: WFL Johny. Lower Ext Sensation: WFL Coordination: WFL - HAND DOMINANCE Extremity Function: Hand Dominance: Right - ROM Bilateral UE ROM: Impaired Comment: Shoulder limitation - STRENGTH Bilateral UE Strength Number: 2 Other comment: 2+/5 Bilateral LE Strength Number: 4 Other comment: 3+ - TREATMENT Date: 10/10/24 Time: 15:30 Treatment Type: Evaluation Treatment Provided: Other - POST ASSESSMENT Post Assessment Comment: Pt was seen for skilled OT to assess CLOF. Pt was agreeable to participate and gave PLOF and hx. Pt was in the shower upon arrival. Pt given min A for showering task. Pt mod A for LB dressing and min A for UB dressing. Pt given time for task. Pt had difficulty with donning socks. Standing in shower with touch A for balance, LOB x1 F+ recovery. Functionally AMB with RW and touch A. Sitting up in recliner with call light within reach and all needs met. Pt demonstrate deficits with ADLs and ADL functional mobility. Pt would benefit from skilled OT services to address ADL deficits to facilitate highest level of ADL function needed for safe d/c planning. - EXIT DISPOSITION Exit Position: CHAIR Call light in reach: Yes PT/OT ASSESSMENT - OT Problem List: Decreased Mobility ADL's, Decreased Safety Aware, Decreased Dressing, Decreased Bathing, Decreased Grooming, Decreased UE Strength - OT GOALS [facility]ci Goals Days: 20 Mobility for ADL's: Pt to improve (I) with functional ADL mobility to set up A and LRAD Safety Awareness: Pt to improve safety to G Dressing: Pt to improve LB dressing to (I) Bathing: Pt to improve overall bathing to (I) Upper Ext. Strength/Use: Pt to improve MMT in BUE by 1 grade Short Term Goals Days: 10 Mobility for ADL's: Pt to improve (I) with functional ADL mobility to supv A and LRAD Dressing: Pt to improve UB dressing to (I) Bathing: Pt to improve bathing to supv A - PATIENT GOALS Patient/Family Goals: To go home Goals Discussed with Patient/Family: Yes Rehabilitation Potential: Good to meet stated goals. Justification for Potential: To facilitate highest level of ADL function needed for safe d/c planning. - PLAN Suggested Treatment Plan: Therapeutic Activity, Self Care Training, Neuro Re- education, Therapeutic Ex with HEP, Patient Education - FREQUENCY AND DURATION OT: 5x a week x 20 day Expected Continuation of Care at Discharge: Home Health, Determined on Progress
[2024-10-10] MEDS: ROBITUSSIN DM PO SCH (17:45)
[2024-10-10] MEDS: TUSSIONEX PENNKINETIC SUSP PO SCH (20:51)
[2024-10-10] MEDS: COREG TAB 6.25 MG PO SCH (20:52)
[2024-10-10] MEDS: PULMICORT NEB TX 0.5 MG NEB SCH (21:11)
[2024-10-11] MEDS: MAG-OX TAB PO SCH (08:35)
[2024-10-11] MEDS: LEVAQUIN TAB 750 MG PO SCH (08:36)
[2024-10-11] MEDS: PLAVIX PO SCH (08:36)
[2024-10-11] MEDS: LASIX IVP SCH (08:39)
[2024-10-11] MEDS: FLONASE NASAL SPRAY ENOSTRIL SCH (08:39)
[2024-10-11] MEDS: DECADRON TAB PO SCH (08:39)
[2024-10-11] MEDS: COZAAR PO SCH (08:39)
[2024-10-11] MEDS: ASPIRIN PO SCH (08:40)
--- NOTE | 2024-10-12 08:38 | DR.H&P ---
H&P History & Physical for Day of: H&P Date: 10/11/24 Chief Complaint Chief Complaint: Weakness, pneumonia History of Present Illness History of Present Illness: Patient admitted to swing bed rehab due to lingering COPD exacerbation secondary to pneumonia from Moraxella catarrhalis and Klebsiella pneumoniae. Been on Levaquin and Zosyn for the past week and de- escalated to p.o. Levaquin yesterday at his discharge. He has also been on steroids through the weekend and intermittently last week. He was septic with acute on chronic hypoxemic respiratory failure, leukocytosis, tachycardia talk, tachypnea, a fever at times, and the after mentioned pneumonia with COPD exacerbation. Patient admitted twice over the last 2 weeks, first due to severe leg weakness with AMMY and electrolyte disturbances. This was likely the beg inning of his pneumonia. He also had been complaining of 2+ weeks of right shoulder pain following a fall earlier in September. He responded well to a steroid injection, intra-articularly, of the right shoulder during his first admission. Patient and family did agree that he needed rehab as they thought home health service PT would not be enough for him at this time. Patient doing wellness first day of rehab yesterday. He has been participating fully. Appetite and attitude have been excellent per staff. Patient plans to go home to his spouse at the end of rehab. Patient still with a cough, but improving. Still easily winded, but that is greatly improved as well. Has been able to go outside with PT today. Right shoulder still sore but better than it was. Does not want to have surgery and has declined an MRI. ROS: 12 point ROS negative except per HPI. PE: WD, WN in, elderly male in no acute distress. Sitting in his bedside recliner wearing his O2. Head NCAT. Hearing intact conversation. Extract movements grossly normal. Trachea midline with F ROM of neck. Heart regular rate and rhythm with no murmur. Lungs diminished with expiratory crackles throughout. Belly is soft, nontender, nondistended with present bowel sounds. Mood & affect are appropriate. No edema of his extremities. Full range of motion of his LUE and BLE. Right shoulder with improved range of motion compared to a week and a half ago but still very limited. Past Medical History Past Medical History: COPD, Dementia, Depression and Hyperthyroidism Past Surgical History Surgical History: Other Family History Family Medical History: Diabetes Mellitus and Coronary Artery Disease Family History Comment: Sister, at 83, Parkinson Social History Does patient currently use any type of tobacco product: No Have you used tobacco products in the last 12 months: No Type of Tobacco Use: None How many years tobacco product used: 0 Does any household member use tobacco: Yes (spouse) Alcohol Use: None Drug Use: None Prescription drug monitoring program results: PDMP reviewed and no concerns identified Medications Home Medications: Home Medications Medication Instructions Recorded Confirmed Type aspirin 81 mg chewable tablet 81 mg PO DAILY 05/02/13 10/10/24 History tamsulosin 0.4 mg capsule 0.4 mg PO QAM 05/02/13 10/10/24 History memantine 28 mg capsule 1 cap PO DAILY 12/26/16 10/10/24 History sprinkle,extended release 24hr (Namenda XR) donepezil 10 mg tablet 10 mg PO DAILY 03/19/19 10/10/24 History escitalopram oxalate 10 mg tablet 10 mg PO DAILY 12/17/19 10/10/24 History levothyroxine 100 mcg tablet 100 mcg PO DAILY 12/17/19 10/10/24 History coenzyme Q10 30 mg capsule 30 mg PO QDAY 10/01/24 10/10/24 History folic acid 800 mcg tablet 0.8 mg PO QDAY 10/01/24 10/10/24 History multivitamin 1 tab PO QAM 10/01/24 10/10/24 History niacin 500 mg tablet 500 mg PO QDAY 10/01/24 10/10/24 History Allergies Allergies Allergy/AdvReac Type Severity Reaction Status Date / Time [id number] Reductase AdvReac Verified 10/01/24 15:01 Inhibitor Assessment/Plan (1) Klebsiella pneumoniae pneumonia: Qualifiers: Laterality: bilateral Lung location: unspecified part of lung Qualified Code(s): J15.0 - Pneumonia due to Klebsiella pneumoniae Narrative Support Text: Continue p.o. Levaquin and steroids. Status: Acute (2) Moraxella catarrhalis pneumonia: Narrative Support Text: Continue per above with continued nebs. Status: Acute (3) COPD (chronic obstructive pulmonary disease) with acute bronchitis: Narrative Support Text: Continue supportive care with oxygen. 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 Topical relief. Status: Acute (7) Chronic respiratory failure with hypoxia: Narrative Support Text: continue O2. Status: Acute
[2024-10-13 06:22] LABS: BASOPHILS % (AUTO) 0.2 % (0.2-1.0); EOSINOPHILS % (AUTO) 0.2 % (0.9-2.9); HEMATOCRIT 37.8 % (42.0-54.0); HEMOGLOBIN 12.7 g/dL (13.5-18.0); LYMPHOCYTES # (AUTO) 2.3 X10^3/uL (1.3-2.9); MEAN CORPUSCULAR HEMOGLOBIN 28.5 pg (27.0-34.0); MEAN CORPUSCULAR HGB CONC 33.5 g/dL (33.0-35.0); MEAN CORPUSCULAR VOLUME 84.9 fL (80.0-100.0); MEAN PLATELET VOLUME 8.7 fL (7.4-11.0); MONOCYTES # (AUTO) 1.2 x10^3/uL (0.3-0.8); MONOCYTES % (AUTO) 7.4 % (0.0-13.0); NEUTROPHILS # (AUTO) 12.9 x10^3/uL (2.2-4.8); NEUTROPHILS % (AUTO) 78.2 % (42.0-75.0); PLATELET COUNT 296 X10^3/uL (150.0-450.0); RED BLOOD COUNT 4.45 X10^6/uL (4.7-6.0); RED CELL DISTRIBUTION WIDTH 13.8 % (11.6-16.5); WHITE BLOOD COUNT 16.5 X10^3/uL (3.6-10.0)
[2024-10-13 06:35] LABS: ALANINE AMINOTRANSFERASE 82 Units/L (12-78); ALBUMIN 2.1 g/dL (3.4-5.0); ALKALINE PHOSPHATASE 109 Units/L (46-116); ASPARTATE AMINO TRANSFERASE 33 Units/L (15-37); BLOOD UREA NITROGEN 37 mg/dL (7-18); CALCIUM 9.4 mg/dL (8.5-10.1); CARBON DIOXIDE 26.3 mmol/L (21-32); CHLORIDE 100 mmol/L (98-107); COR CA(FOR HYPOALB) 10.9 mg/dL (8.5-10.1); CREATININE 1.94 mg/dL (0.70-1.30); GLUCOSE 104 mg/dL (65-99); POTASSIUM 4.4 mmol/L (3.5-5.1); SODIUM 135 mmol/L (136-145); TOTAL PROTEIN 6.8 g/dL (6.4-8.2); eGFR NON BLACK RACES 35 (>60)
[2024-10-14 06:33] LABS: BASOPHILS % (AUTO) 0.2 % (0.2-1.0); EOSINOPHILS % (AUTO) 0.2 % (0.9-2.9); HEMATOCRIT 37.1 % (42.0-54.0); HEMOGLOBIN 12.6 g/dL (13.5-18.0); LYMPHOCYTES # (AUTO) 2.3 X10^3/uL (1.3-2.9); LYMPHOCYTES % (AUTO) 14.4 % (21.0-51.0); MEAN CORPUSCULAR HEMOGLOBIN 28.8 pg (27.0-34.0); MEAN CORPUSCULAR VOLUME 84.9 fL (80.0-100.0); MEAN PLATELET VOLUME 8.6 fL (7.4-11.0); MONOCYTES # (AUTO) 1.2 x10^3/uL (0.3-0.8); MONOCYTES % (AUTO) 7.4 % (0.0-13.0); NEUTROPHILS # (AUTO) 12.2 x10^3/uL (2.2-4.8); NEUTROPHILS % (AUTO) 77.8 % (42.0-75.0); PLATELET COUNT 314 X10^3/uL (150.0-450.0); RED BLOOD COUNT 4.37 X10^6/uL (4.7-6.0); RED CELL DISTRIBUTION WIDTH 13.4 % (11.6-16.5); WHITE BLOOD COUNT 15.7 X10^3/uL (3.6-10.0)
[2024-10-14 06:43] LABS: ALBUMIN 2.2 g/dL (3.4-5.0); CALCIUM 9.3 mg/dL (8.5-10.1); COR CA(FOR HYPOALB) 10.7 mg/dL (8.5-10.1); CREATININE 1.85 mg/dL (0.70-1.30); POTASSIUM 4.2 mmol/L (3.5-5.1); TOTAL PROTEIN 6.9 g/dL (6.4-8.2)
--- NOTE | 2024-10-14 08:46 | NOTE.SOAP ---
Soap Note Note for Day of Date of Exam: 10/14/24 Subjective Data Subjective Data: Patient in swing bed for rehab. Coughing very well-controlled. Only complaining of some heartburn at night for 1 to 2 hours when laying back. Used to be on a medicine at home years ago but cannot remember what it was. Labs overall stable. Still with mild anemia and moderate leukocytosis. Still on Levaquin and steroids. Objective Data Objective Data: Elderly male in no acute distress. Hearing intact conversation. Heart regular rate and rhythm. Lungs diminished but clear throughout. Belly is soft, nontender, nondistended with bowel sounds present. Mood and affect are appropriate. Good strength in his extremities. Endurance improved. Assessment Assessment: 1. Bilateral pneumonia secondary to multiple organisms with COPD exacerbation. Steady improvement. Continue nebs, steroids, and Levaquin. Will make sure he completes 14-day course of each. 2. GERD without esophagitis. Start Pepcid 20 mg at night. 3. Anemia of CKD 3B. Stable. Hydrate orally. Discharge home Thursday morning with home health PT and OT along with a walker.
[2024-10-14] MEDS: PEPCID TAB 20 MG PO SCH (09:51)
[2024-10-15 20:28] VITALS: TEMP 97.7
[2024-10-15] MEDS: PEPCID TAB 20 MG PO SCH (20:41)
[2024-10-16] MEDS: LASIX PO SCH (08:43)
[2024-10-17 06:19] LABS: BASOPHILS % (AUTO) 0.1 % (0.2-1.0); EOSINOPHILS % (AUTO) 0.1 % (0.9-2.9); HEMATOCRIT 35.5 % (42.0-54.0); LYMPHOCYTES % (AUTO) 15.7 % (21.0-51.0); MEAN CORPUSCULAR HEMOGLOBIN 28.4 pg (27.0-34.0); MEAN CORPUSCULAR HGB CONC 33.8 g/dL (33.0-35.0); MEAN PLATELET VOLUME 7.9 fL (7.4-11.0); MONOCYTES # (AUTO) 1.3 x10^3/uL (0.3-0.8); MONOCYTES % (AUTO) 10.5 % (0.0-13.0); NEUTROPHILS # (AUTO) 9.3 x10^3/uL (2.2-4.8); NEUTROPHILS % (AUTO) 73.6 % (42.0-75.0); PLATELET COUNT 338 X10^3/uL (150.0-450.0); RED BLOOD COUNT 4.23 X10^6/uL (4.7-6.0); RED CELL DISTRIBUTION WIDTH 13.8 % (11.6-16.5); WHITE BLOOD COUNT 12.6 X10^3/uL (3.6-10.0)
[2024-10-17 06:38] LABS: ALBUMIN 2.3 g/dL (3.4-5.0); CALCIUM 9.3 mg/dL (8.5-10.1); CARBON DIOXIDE 26.1 mmol/L (21-32); COR CA(FOR HYPOALB) 10.7 mg/dL (8.5-10.1); CREATININE 1.66 mg/dL (0.70-1.30); POTASSIUM 4.7 mmol/L (3.5-5.1); TOTAL PROTEIN 6.3 g/dL (6.4-8.2)
--- NOTE | 2024-10-17 08:22 | PCM.DCPLAN ---
DISCHARGE SUMMARY Admission Date Date of Admission: 10/10/24 Discharge Date Discharge Date: 10/17/24 Admission Diagnoses (1) Klebsiella pneumoniae pneumonia: Status: Acute (2) Moraxella catarrhalis pneumonia: Status: Acute (3) COPD (chronic obstructive pulmonary disease) with acute bronchitis: Status: Acute (4) Chronic kidney disease (CKD): Status: Chronic (5) Generalized weakness: Status: Acute (6) Acute pain of right shoulder: Status: Acute (7) Chronic respiratory failure with hypoxia: Status: Acute Discharge Medications Discharge Medications: Prescriptions: Hospital Course Vital Signs: Vital Signs Pulse Rate 68 Pulse Rate 72 O2 Sat by Pulse Oximetry 98 O2 Sat by Pulse Oximetry 98 Latest Lab Results: Laboratory Last Values WBC 12.6 X10^3/uL (3.6-10.0) H 10/17/24 05:34 RBC 4.23 X10^6/uL (4.7-6.0) L 10/17/24 05:34 Hgb 12.0 g/dL (13.5-18.0) L 10/17/24 05:34 Hct 35.5 % (42.0-54.0) L 10/17/24 05:34 MCV 84.0 fL (80.0-100.0) 10/17/24 05:34 MCH 28.4 pg (27.0-34.0) 10/17/24 05:34 MCHC 33.8 g/dL (33.0-35.0) 10/17/24 05:34 RDW 13.8 % (11.6-16.5) 10/17/24 05:34 Plt Count 338 X10^3/uL (150.0-450.0) 10/17/24 05:34 MPV 7.9 fL (7.4-11.0) 10/17/24 05:34 Neut % (Auto) 73.6 % (42.0-75.0) 10/17/24 05:34 Lymph % (Auto) 15.7 % (21.0-51.0) L 10/17/24 05:34 [place] % (Auto) 10.5 % (0.0-13.0) 10/17/24 05:34 Eos % (Auto) 0.1 % (0.9-2.9) L 10/17/24 05:34 Baso % (Auto) 0.1 % (0.2-1.0) L 10/17/24 05:34 Neut # (Auto) 9.3 x10^3/uL (2.2-4.8) H 10/17/24 05:34 Lymph # (Auto) 2.0 X10^3/uL (1.3-2.9) 10/17/24 05:34 [place] # (Auto) 1.3 x10^3/uL (0.3-0.8) H 10/17/24 05:34 Eos # (Auto) 0.0 x10^3/uL (0.0-0.2) 10/17/24 05:34 Baso # (Auto) 0.0 X10^3/uL (0.0-0.1) 10/17/24 05:34 Absolute Nucleated RBC 0.0 /100WBC 10/17/24 05:34 Sodium 135 mmol/L (136-145) L 10/17/24 05:34 Corrected Sodium 135 mmol/L (136-145) L 10/17/24 05:34 Potassium 4.7 mmol/L (3.5-5.1) 10/17/24 05:34 Chloride 101 mmol/L (98-107) 10/17/24 05:34 Carbon Dioxide 26.1 mmol/L (21-32) 10/17/24 05:34 BUN 39 mg/dL (7-18) H 10/17/24 05:34 Creatinine 1.66 mg/dL (0.70-1.30) H 10/17/24 05:34 Est GFR (MDRD) Af Amer 51 (>60) L 10/17/24 05:34 Est GFR (MDRD) Non-Af 42 (>60) L 10/17/24 05:34 Glucose 119 mg/dL (65-99) H 10/17/24 05:34 Calcium 9.3 mg/dL (8.5-10.1) 10/17/24 05:34 Corrected Calcium 10.7 mg/dL (8.5-10.1) H 10/17/24 05:34 Total Bilirubin 0.30 mg/dL (0.2-1.0) 10/17/24 05:34 AST 20 Units/L (15-37) 10/17/24 05:34 ALT 48 Units/L (12-78) 10/17/24 05:34 Alkaline Phosphatase 100 Units/L (46-116) 10/17/24 05:34 Total Protein 6.3 g/dL (6.4-8.2) L 10/17/24 05:34 Albumin 2.3 g/dL (3.4-5.0) L 10/17/24 05:34 Globulin 4.0 g/dL (2.5-4.5) 10/17/24 05:34 Albumin/Globulin Ratio 0.6 Ratio (1.1-2.1) L 10/17/24 05:34 Hospital Course: Patient admitted to the swing bed for rehab. Had had a prolonged course of bila teral pneumonia with COPD exacerbation due to multiple organisms. He responded well to PT and OT. He did well on Levaquin, steroids, nebs, and cough medications. He has progressed to the point that he is safe and stable for discharge home with continued home health nursing and PT/OT. He will need to complete 3 more days of p.o. Levaquin. He needs to continue his nebulizers and inhalers at home. Follow-up with his PCP within the next 2 weeks.
[2024-10-17 09:03] VITALS: PULSE 65; O2SAT 96
[2024-10-17 09:07] VITALS: BP 123/57; RESP 21
[2024-10-18] MEDS ORDERED: LEVAQUIN TAB 750 MG PO SCH (09:00)
== END 2024-10-17 10:50 | disposition home health service (06) | DRG 177 ==
LOC: MED/SURG 13:00
PROVIDERS: ADMIT Family Medicine; ATTEND Family Medicine